=== PATIENT | female | born 1970 | race Caucasian/White ===

== ENCOUNTER 2016-12-29 13:14 | Inpatient (IN) | payer BC, OTHER ==
[2016-12-29] MEDS ORDERED: NALOXONE 0.4 MG/ML 10 ML VIAL IVP STA (13:59)
[2016-12-29] MEDS ORDERED: SODIUM CHLORIDE 0.9% 1,000 ML IV STA (13:59)
[2016-12-29 14:19] LABS: Appearance,Urine Cloudy (Clear); Bacteria,Urine Moderate /hpf; Bilirubin,Urine Negative (Negative); Glucose,Urine (UA) Negative (Negative); Ketones,Urine Negative (Negative); Leukocyte Esterase,Urine Negative (Negative); Nitrite,Urine Positive (Negative); Particle Count 64716; Protein,Urine Negative (Negative); RBC,Urine 1 /hpf (0-5); Specific Gravity,Urine 1.004 (1.001-1.035); Squamous Epithelial Cell,Urine <1 /hpf (0-4); UA Billing (MACRO vs. MICRO) MICRO; Urobilinogen,Urine <2.0 mg/dL (<2.0); WBC,Urine 1 /hpf (0-5)
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
[2016-12-29 14:50] LABS: Anisocytosis Slight; Basophils # (A) 0.1 k/uL (0-0.2); Basophils % (A) 1 %; CH 32.7; CHCM 32.9; Eosinophils % (A) 0 %; HCT 44.6 % (34.0-46.0); HDW 2.59; HGB 14.1 gm/dL (11.4-16.0); Luc # (Auto) 0.06; Luc % (Auto) 1; Lymphocytes % (A) 11 %; MCH 31.6 pg (25.0-35.0); MCHC 31.6 g/dL (31.0-37.0); MCV 100.1 fL (80.0-100.0); Macrocytosis Slight; Mean Platelet Volume 6.7; Monocytes # (A) 0.3 k/uL (0-1.0); Monocytes % (A) 3 %; Neutrophils # (A) 7.8 k/uL (1.3-7.7); Neutrophils % (A) 84 %; RBC 4.46 m/uL (3.80-5.40); RDW 16.9 % (11.5-15.5); WBC 9.3 k/uL (3.8-10.6)
[2016-12-29 15:00] LABS: INR 1.4 (<1.2); Partial Thromboplastin Time 28.1 sec (22.0-30.0); Prothrombin Time 13.3 sec (9.0-12.0)
[2016-12-29 15:02] LABS: Alcohol <10 mg/dL; Alkaline Phosphatase 81 U/L (38-126); Anion Gap 9 mmol/L; Blood Urea Nitrogen 7 mg/dL (7-17); Calcium 9.1 mg/dL (8.4-10.2); Carbon Dioxide 21 mmol/L (22-30); Chloride 108 mmol/L (98-107); Glucose 95 mg/dL (74-99); Non-African American GFR(MDRD) >60 (>60 ml/min/1.73 sqM); Potassium 3.9 mmol/L (3.5-5.1); Sodium 138 mmol/L (137-145); Total Bilirubin 0.5 mg/dL (0.2-1.3); Total Protein 7.3 g/dL (6.3-8.2)
[2016-12-29 15:08] LABS: Creatine Kinase 98 U/L (30-135)
[2016-12-29] MEDS ORDERED: LORazepam 2 MG/ML INJ IV STA (15:17)
[2016-12-29 15:19] LABS: AST 2327 U/L (14-36)
[2016-12-29 15:21] LABS: Creatine Kinase MB 1.1 ng/mL (0.0-2.4); Troponin I <0.012 ng/mL (0.000-0.034)
[2016-12-29 15:29] LABS: ALT 2149 U/L (9-52)
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
[2016-12-29 17:54] LABS: Glucose,Whole Blood 96 mg/dL (75-99)
[2016-12-29 18:07] LABS: Acetaminophen 35.6 ug/mL; Salicylate <1.0 mg/dL
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
[2016-12-29] MEDS ORDERED: NALOXONE 0.4 MG/ML 1 ML VIAL IV STA (18:55)
[2016-12-29] MEDS ORDERED: NALOXONE 0.4 MG/ML 1 ML VIAL IV PRN (20:07)
[2016-12-29] MEDS ORDERED: HALOPERIDOL LACTATE 5 MG/ML 1 ML VIAL IM PRN (21:42)
[2016-12-29] MEDS ORDERED: ONDANSETRON 4 MG/2 ML VIAL IVP PRN (21:44)
[2016-12-29] MEDS ORDERED: MELATONIN 5 MG TABLET PO PRN (21:45)
[2016-12-29] MEDS ORDERED: traMADol 50 MG TAB PO SCH (22:00)
[2016-12-29 22:12] VITALS: BMI 20.1
[2016-12-29] MEDS: SODIUM CHLORIDE 0.9% 1,000 ML IV SCH (22:13)
[2016-12-29] MEDS: NICOTINE 21MG/24HR PATCH TRANSDERM SCH (22:32)
[2016-12-29] MEDS ORDERED: HALOPERIDOL LACTATE 5 MG/ML 1 ML VIAL IVP PRN (23:57)
[2016-12-30] MEDS: traMADol 50 MG TAB PO PRN ×2 (03:55→09:26)
[2016-12-30 04:08] VITALS: TEMP 96.7
[2016-12-30] MEDS: SODIUM CHLORIDE 0.9% 1,000 ML IV SCH (05:59)
[2016-12-30 06:25] LABS: Anisocytosis Slight; Basophils % (A) 0 %; CH 32.5; CHCM 32.6; Eosinophils % (A) 0 %; HCT 39.5 % (34.0-46.0); HGB 12.7 gm/dL (11.4-16.0); Luc # (Auto) 0.07; Luc % (Auto) 1; Lymphocytes # (A) 0.7 k/uL (1.0-4.8); Lymphocytes % (A) 8 %; MCH 32.5 pg (25.0-35.0); MCHC 32.2 g/dL (31.0-37.0); MCV 100.7 fL (80.0-100.0); Macrocytosis Slight; Mean Platelet Volume 6.9; Monocytes # (A) 0.4 k/uL (0-1.0); Monocytes % (A) 4 %; Neutrophils # (A) 7.6 k/uL (1.3-7.7); Neutrophils % (A) 87 %; RBC 3.92 m/uL (3.80-5.40); RDW 17.1 % (11.5-15.5); WBC 8.8 k/uL (3.8-10.6); WBC (Perox) 9.12
[2016-12-30 06:36] LABS: Alkaline Phosphatase 74 U/L (38-126); Anion Gap 7 mmol/L; Blood Urea Nitrogen 6 mg/dL (7-17); Calcium 8.1 mg/dL (8.4-10.2); Carbon Dioxide 18 mmol/L (22-30); Chloride 116 mmol/L (98-107); Glucose 79 mg/dL (74-99); Magnesium 2.1 mg/dL (1.6-2.3); Non-African American GFR(MDRD) >60 (>60 ml/min/1.73 sqM); Potassium 3.8 mmol/L (3.5-5.1); Sodium 141 mmol/L (137-145); Total Bilirubin 0.6 mg/dL (0.2-1.3); Total Protein 5.7 g/dL (6.3-8.2)
[2016-12-30 07:18] LABS: ALT 5722 U/L (9-52); AST 5708 U/L (14-36)
[2016-12-30 08:32] VITALS: BP 105/56; PULSE 73; RESP 20
[2016-12-30] MEDS ORDERED: HEPARIN SODIUM,PORCINE 5,000 UNIT/ML 1 ML VIAL SQ SCH (09:00)
[2016-12-30] MEDS ORDERED: PANTOPRAZOLE 40 MG/10 ML VIAL IV SCH (09:00)
[2016-12-30] MEDS: NICOTINE 21MG/24HR PATCH TRANSDERM SCH ×3 (09:26→09:35)
--- NOTE | 2016-12-30 11:06 | P.HPIM ---
History of Present Illness Left AMA Past Medical History Past Medical History: Fibromyalgia, GERD/Reflux, Musculoskeletal Disorder History of Any Multi-Drug Resistant Organisms: None Reported Past Surgical History: Appendectomy, Section, Hernia Repair, Hysterectomy, Orthopedic Surgery Additional Past Surgical History / Comment(s): abdominal surgeries post Hysterectomy, rt. knee-rt. elbow, left wrist. Pain clinic injections Past Anesthesia/Blood Transfusion Reactions: No Reported Reaction Past Psychological History: Anxiety, Depression, PTSD Smoking Status: Former smoker Past Alcohol Use History: Occasional Past Drug Use History: None Reported - Past Family History Mother Family Medical History: Cancer Medications and Allergies Home Medications Medication Instructions Recorded Confirmed Type lamoTRIgine [LaMICtal] 150 mg PO BID 09/03/13 12/29/16 History LORazepam [Ativan] 0.5 mg PO TID PRN 09/07/13 12/29/16 History Omeprazole [PriLOSEC] 20 mg PO BID 09/07/13 12/29/16 History Topiramate [Topamax] 100 mg PO HS 09/07/13 12/29/16 History Propranolol LA [Inderal LA] 60 mg PO DAILY 11/09/13 12/29/16 History Amitriptyline HCl [Elavil] 25 mg PO HS #30 tab 02/17/14 12/29/16 Rx FLUoxetine HCL [PROzac] 80 mg PO HS 12/29/16 12/29/16 History Mirtazapine [Remeron] 15 mg PO HS 12/29/16 12/29/16 History Morphine Sulfate [Ms Contin] 30 mg PO TID 12/29/16 12/29/16 History oxyCODONE HCL/ACETAMINOPHEN 1 tab PO QID PRN 12/29/16 12/29/16 History [Percocet 10-325 mg] Allergies Allergy/AdvReac Type Severity Reaction Status Date / Time HAY FEVER Allergy Cough Uncoded 06/21/14 12:22 Physical Exam Vitals: Vital Signs Temp Pulse Pulse Resp BP BP Pulse Ox 12/30/16 08:22 73 20 105/56 97 12/30/16 04:00 96.7 F L 63 24 126/71 99 12/29/16 23:30 96.9 F L 53 L 20 97/54 98 12/29/16 21:30 96.6 F L 62 24 107/56 98 12/29/16 20:47 97.7 F 72 18 97/59 98 12/29/16 20:15 68 18 101/55 98 12/29/16 19:39 68 18 110/76 97 12/29/16 18:56 68 18 106/64 97 12/29/16 17:59 73 18 95/45 97 12/29/16 17:09 76 18 99/54 94 L 12/29/16 16:36 73 18 100/63 95 12/29/16 16:17 69 18 95/54 100 12/29/16 15:56 75 17 92/56 97 12/29/16 15:25 90/53 12/29/16 15:15 87 26 H 97 12/29/16 13:16 98.2 F 64 16 96/49 95 Intake and Output 12/29/16 12/30/16 12/30/16 22:59 06:59 14:59 Intake Total 375 1000 Balance 375 1000 Intake: Intake, IV Titration 375 1000 Amount Sodium Chloride 0.9% 1, 375 1000 000 ml @ 125 mls/hr IV . Q8H [facility] Rx#:[id number] Other: Voiding Method Toilet Toilet Weight 49.89 kg 64.5 kg Results CBC & Chem 7: 12/30/16 06:02 12/30/16 06:02 Labs: Abnormal Lab Results - Last 24 Hours (Table) 12/29/16 12/29/16 12/29/16 Range/Units 14:05 14:05 14:40 MCV (80.0-100.0) fL RDW (11.5-15.5) % Neutrophils # (1.3-7.7) k/uL Lymphocytes # (1.0-4.8) k/uL PT (9.0-12.0) sec INR (<1.2) Chloride 108 H (98-107) mmol/L Carbon Dioxide 21 L (22-30) mmol/L BUN (7-17) mg/dL Calcium (8.4-10.2) mg/dL AST 2327 H (14-36) U/L ALT 2149 H (9-52) U/L Total Protein (6.3-8.2) g/dL Albumin (3.5-5.0) g/dL Urine Appearance Cloudy H (Clear) Urine Nitrite Positive H (Negative) Urine Bacteria Moderate H (None) /hpf Urine Opiates Screen Detected H (NotDetected) Ur Oxycodone Screen Detected H (NotDetected) U Benzodiazepines Scrn Detected H (NotDetected) 12/29/16 12/29/16 12/30/16 Range/Units 14:40 14:40 06:02 MCV 100.1 H 100.7 H (80.0-100.0) fL RDW 16.9 H 17.1 H (11.5-15.5) % Neutrophils # 7.8 H (1.3-7.7) k/uL Lymphocytes # 0.7 L (1.0-4.8) k/uL PT 13.3 H (9.0-12.0) sec INR 1.4 H (<1.2) Chloride (98-107) mmol/L Carbon Dioxide (22-30) mmol/L BUN (7-17) mg/dL Calcium (8.4-10.2) mg/dL AST (14-36) U/L ALT (9-52) U/L Total Protein (6.3-8.2) g/dL Albumin (3.5-5.0) g/dL Urine Appearance (Clear) Urine Nitrite (Negative) Urine Bacteria (None) /hpf Urine Opiates Screen (NotDetected) Ur Oxycodone Screen (NotDetected) U Benzodiazepines Scrn (NotDetected) 12/30/16 Range/Units 06:02 MCV (80.0-100.0) fL RDW (11.5-15.5) % Neutrophils # (1.3-7.7) k/uL Lymphocytes # (1.0-4.8) k/uL PT (9.0-12.0) sec INR (<1.2) Chloride 116 H (98-107) mmol/L Carbon Dioxide 18 L (22-30) mmol/L BUN 6 L (7-17) mg/dL Calcium 8.1 L (8.4-10.2) mg/dL AST 5708 H (14-36) U/L ALT 5722 H (9-52) U/L Total Protein 5.7 L (6.3-8.2) g/dL Albumin 3.0 L (3.5-5.0) g/dL Urine Appearance (Clear) Urine Nitrite (Negative) Urine Bacteria (None) /hpf Urine Opiates Screen (NotDetected) Ur Oxycodone Screen (NotDetected) U Benzodiazepines Scrn (NotDetected) Thrombosis Risk Factor Assmnt - Choose All That Apply Any of the Below Risk Factors Present?: Yes Each Factor Represents 1 point: Age 41-60 years Other Risk Factors: No Thrombosis Risk Factor Assessment Total Risk Factor Score: 1 Thrombosis Risk Factor Assessment Level: Low Risk
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
== END 2016-12-30 11:09 | disposition left against medical advice (07) | DRG 81 ==
LOC: EC 13:14 → 6SEL 20:13
PROVIDERS: ADMIT Internal Medicine; ATTEND Internal Medicine
DX: R40.0 Somnolence (principal); F32.9 Major depressive disorder, single episode, unspecified; R41.0 Disorientation, unspecified; F13.10 Sedative, hypnotic or anxiolytic abuse, uncomplicated; F17.200 Nicotine dependence, unspecified, uncomplicated; F43.10 Post-traumatic stress disorder, unspecified; K21.9 Gastro-esophageal reflux disease without esophagitis; M79.7 Fibromyalgia; G89.29 Other chronic pain; F41.9 Anxiety disorder, unspecified; Z79.899 Other long term (current) drug therapy; V89.2XXA Person injured in unspecified motor-vehicle accident, traffic, initial encounter; Y92.410 Unspecified street and highway as the place of occurrence of the external cause
CPT/HCPCS: 36415; 70450; 71020; 72125; 72170; 76705; 80053; 80306; 80320; 81001; 82075; 82140; 82550; 82553; 83520; 83735; 84484; 85025; 85610; 85730; 93005; 96361; 96374; 96375; 96376; 99285

== ENCOUNTER 2020-02-01 17:40 | Inpatient (IN) | payer BC, OTHER ==
[2020-02-01 18:02] LABS: Glucose,Whole Blood 110 mg/dL (75-99)
[2020-02-01 18:11] LABS: Basophils # (A) 0.1 k/uL (0-0.2); Basophils % (A) 1 %; Eosinophils # (A) 0.1 k/uL (0-0.7); Eosinophils % (A) 2 %; HCT 36.7 % (34.0-46.0); HGB 11.7 gm/dL (11.4-16.0); Lymphocytes # (A) 2.1 k/uL (1.0-4.8); Lymphocytes % (A) 28 %; MCH 31.3 pg (25.0-35.0); MCHC 31.8 g/dL (31.0-37.0); MCV 98.4 fL (80.0-100.0); Mean Platelet Volume 6.9; Monocytes # (A) 0.3 k/uL (0-1.0); Monocytes % (A) 4 %; Neutrophils # (A) 4.9 k/uL (1.3-7.7); Neutrophils % (A) 64 %; Platelet Count 245 k/uL (150-450); RBC 3.73 m/uL (3.80-5.40); RDW 13.6 % (11.5-15.5); WBC 7.6 k/uL (3.8-10.6)
--- NOTE | 2020-02-01 18:12 | ED ---
Overdose HPI - General Chief Complaint: Overdose Stated Complaint: overdose Time Seen by Provider: 02/01/20 17:40 Source: EMS, RN notes reviewed, old records reviewed Mode of arrival: EMS Limitations: altered mental status - History of Present Illness Initial Comments: This is a 50-year-old female history of chronic pain who was brought in by EMS after being found unresponsive with a needle in her left antecubital space. She does have apparently access to medication use in that area medicine. Unknown when she injected. She was unresponsive somnolent with bradycardia and labored breathing. She was given 2 mg Narcan without any response by EMS personnel. She was transported here with O PA and nasal trumpet that. She did maintain oxygenation however she was still unresponsive. She did demonstrate a gag reflex per paramedics. Intubation was attempted but gag reflex indicated this at that time.per report there was a suicide note left. MD Complaint: intentional overdose - Related Data Home Medications Medication Instructions Recorded Confirmed lamoTRIgine [LaMICtal] 150 mg PO BID 09/03/13 12/29/16 LORazepam [Ativan] 0.5 mg PO TID PRN 09/07/13 12/29/16 Omeprazole [PriLOSEC] 20 mg PO BID 09/07/13 12/29/16 Topiramate [Topamax] 100 mg PO HS 09/07/13 12/29/16 Propranolol LA [Inderal LA] 60 mg PO DAILY 11/09/13 12/29/16 FLUoxetine HCL [PROzac] 80 mg PO HS 12/29/16 12/29/16 Mirtazapine [Remeron] 15 mg PO HS 12/29/16 12/29/16 Morphine Sulfate [Ms Contin] 30 mg PO TID 12/29/16 12/29/16 oxyCODONE HCL/ACETAMINOPHEN 1 tab PO QID PRN 12/29/16 12/29/16 [Percocet 10-325 mg] Previous Rx's Medication Instructions Recorded Amitriptyline HCl [Elavil] 25 mg PO HS #30 tab 02/17/14 Allergies Allergy/AdvReac Type Severity Reaction Status Date / Time HAY FEVER Allergy Cough Uncoded 02/01/20 18:00 Review of Systems ROS Statement: Those systems with pertinent positive or pertinent negative responses have been documented in the HPI. ROS Other: All systems not noted in ROS Statement are negative. Past Medical History Past Medical History: Fibromyalgia, GERD/Reflux, Musculoskeletal Disorder History of Any Multi-Drug Resistant Organisms: None Reported Past Surgical History: Appendectomy, Section, Hernia Repair, Hysterectomy, Orthopedic Surgery Additional Past Surgical History / Comment(s): abdominal surgeries post Hysterectomy, rt. knee-rt. elbow, left wrist. Pain clinic injections Past Anesthesia/Blood Transfusion Reactions: No Reported Reaction Past Psychological History: Anxiety, Depression, PTSD Smoking Status: Unknown if ever smoked Past Alcohol Use History: Occasional Past Drug Use History: None Reported - Past Family History Mother Family Medical History: Cancer General Exam - General Exam Comments Initial Comments: this is a well-developed well-nourished unresponsive female Limitations: altered mental status General appearance: in distress Head exam: Present: atraumatic, normocephalic, normal inspection Eye exam: Present: other (pupils are fixed at 2 mm unresponsive to light at this time) ENT exam: Present: normal exam, mucous membranes moist Neck exam: Present: normal inspection. Absent: tenderness, meningismus, lymphadenopathy Respiratory exam: Present: decreased breath sounds. Absent: respiratory distress, wheezes, rales, rhonchi, stridor Cardiovascular Exam: Present: normal rhythm, bradycardia, normal heart sounds. Absent: systolic murmur, diastolic murmur, rubs, gallop, clicks GI/Abdominal exam: Present: soft, normal bowel sounds. Absent: distended, tenderness, guarding, rebound, rigid Extremities exam: Present: full ROM, normal capillary refill, other (hematoma noted at the injection site in the left antecubital space. No pulsations at this time. Distal pulses are maintained). Absent: tenderness, pedal edema, joint swelling, calf tenderness Back exam: Present: normal inspection Neurological exam: Present: altered, CN II-XII intact Psychiatric exam: Present: suicidal ideation Skin exam: Present: warm, dry, intact, normal color. Absent: rash Course Vital Signs 02/01/20 02/01/20 02/01/20 17:44 17:48 18:19 Temperature 97.8 F 96.8 F L Pulse Rate 54 L 47 L Respiratory 10 L 10 L 15 Rate Blood Pressure 90/52 85/59 O2 Sat by Pulse 100 99 Oximetry 02/01/20 02/01/20 02/01/20 18:35 19:23 20:00 Temperature Pulse Rate 45 L 45 L 47 L Respiratory 14 14 Rate Blood Pressure 86/61 102/54 90/56 O2 Sat by Pulse 100 100 Oximetry 02/01/20 02/01/20 02/01/20 20:28 20:35 20:45 Temperature Pulse Rate 46 L 46 L 48 L Respiratory 12 14 14 Rate Blood Pressure 80/61 97/56 81/53 O2 Sat by Pulse 100 100 100 Oximetry - Reevaluation(s) Reevaluation #1: 02/01/20 19:41 I did reevaluate patient several occasions with no change in responsiveness. Blood pressure is in the low 90s systolic this apparently is her normal range per her was present. Procedures - Central Line Placement Right SC Consent Obtained: written consent, emergent situation Patient Placed on Monitor/Pulse Ox: Yes Prep: mask, gown, gloves, other Central Line Prep: Chlorhexidine scrub Local Anesthesia Used: Lidocaine 1% Amount of Anesthesia Used (mls): 3 Ultrasound Used for Placement: No Central Line Lumen Inserted: triple Bloods Obtained for Lab: No Central Line Position: good blood return, all ports aspirated, flushed, capped, sutured in place with 3-0 nylon Dressing Applied: Tegaderm Post Procedure X-Ray: tip of catheter in good position Patient Tolerated Procedure: well Complications: none, other (Catheter appears be in good position no evidence of pneumothorax.) - Intubation Paralytic: Succinylcholine Mg Given: 100 Laryngoscope: Ferguson Size: 3 ET Tube Size: 7.5 ET Tube Uncuffed: No (coughed) Tube Secured Location: lips Tube Placement Confirmation: visualized tube passing through cords, equal breath sounds bilaterally, confirmation by capnometry Patient Tolerated Procedure: well Intubation Complications: none Medical Decision Making - Lab Data Result diagrams: 02/01/20 18:02 02/01/20 18:02 Lab Results 02/01/20 02/01/20 02/01/20 Range/Units 18:01 18: 18:02 WBC 7.6 (3.8-10.6) k/uL RBC 3.73 L (3.80-5.40) m/uL Hgb 11.7 (11.4-16.0) gm/dL Hct 36.7 (34.0-46.0) % MCV 98.4 (80.0-100.0) fL MCH 31.3 (25.0-35.0) pg MCHC 31.8 (31.0-37.0) g/dL RDW 13.6 (11.5-15.5) % Plt Count 245 (150-450) k/uL Neutrophils % 64 % Lymphocytes % 28 % Monocytes % 4 % Eosinophils % 2 % Basophils % 1 % Neutrophils # 4.9 (1.3-7.7) k/uL Lymphocytes # 2.1 (1.0-4.8) k/uL Monocytes # 0.3 (0-1.0) k/uL Eosinophils # 0.1 (0-0.7) k/uL Basophils # 0.1 (0-0.2) k/uL APTT 24.8 (22.0-30.0) sec Sample Site ABG pH (7.35-7.45) ABG pCO2 (35-45) mmHg ABG pO2 (83-108) mmHg ABG HCO3 (21-25) mmol/L ABG Total CO2 (19-24) mmol/L ABG O2 Saturation (94-97) % ABG Base Excess mmol/L [place] Test FiO2 % Sodium (137-145) mmol/L Potassium (3.5-5.1) mmol/L Chloride (98-107) mmol/L Carbon Dioxide (22-30) mmol/L Anion Gap mmol/L BUN (7-17) mg/dL Creatinine (0.52-1.04) mg/dL Est GFR (CKD-EPI)AfAm (>60 ml/min/1.73 sqM) Est GFR (CKD-EPI)NonAf (>60 ml/min/1.73 sqM) Glucose (74-99) mg/dL POC Glucose (mg/dL) 110 H (75-99) mg/dL POC Glu Communications Designer ID Juany Grissom Osmolality ([phone]) mosm/kg Plasma Lactic Acid Naun (0.7-2.0) mmol/L Calcium (8.4-10.2) mg/dL Magnesium (1.6-2.3) mg/dL Total Bilirubin (0.2-1.3) mg/dL AST (14-36) U/L ALT (4-34) U/L Alkaline Phosphatase (38-126) U/L Ammonia (<30) umol/L Creatine Kinase (30-135) U/L Troponin I (0.000-0.034) ng/mL NT-Pro-B Natriuret Pep pg/mL Total Protein (6.3-8.2) g/dL Albumin (3.5-5.0) g/dL Amylase (30-110) U/L Lipase (23-300) U/L Urine Color Urine Appearance (Clear) Urine pH (5.0-8.0) Ur Specific [place] (1.001-1.035) Urine Protein (Negative) Urine Glucose (UA) (Negative) Urine Ketones (Negative) Urine Blood (Negative) Urine Nitrite (Negative) Urine Bilirubin (Negative) Urine Urobilinogen (<2.0) mg/dL Ur Leukocyte Esterase (Negative) Urine WBC (0-5) /hpf Ur Squamous Epith Cells (0-4) /hpf Urine Bacteria (None) /hpf Hyaline Casts (0-2) /lpf Urine Mucus (None) /hpf Salicylates mg/dL Urine Opiates Screen (NotDetected) Ur Oxycodone Screen (NotDetected) Urine Methadone Screen (NotDetected) Ur Propoxyphene Screen (NotDetected) Acetaminophen ug/mL Ur Barbiturates Screen (NotDetected) Phenytoin ug/mL U Tricyclic Antidepress (NotDetected) Ur Phencyclidine Scrn (NotDetected) Ur Amphetamines Screen (NotDetected) U Methamphetamines Scrn (NotDetected) U Benzodiazepines Scrn (NotDetected) Urine Cocaine Screen (NotDetected) U Marijuana (THC) Screen (NotDetected) Serum Alcohol mg/dL 02/01/20 02/01/20 02/01/20 Range/Units 18:02 18:02 18:02 WBC (3.8-10.6) k/uL RBC (3.80-5.40) m/uL Hgb (11.4-16.0) gm/dL Hct (34.0-46.0) % MCV (80.0-100.0) fL MCH (25.0-35.0) pg MCHC (31.0-37.0) g/dL RDW (11.5-15.5) % Plt Count (150-450) k/uL Neutrophils % % Lymphocytes % % Monocytes % % Eosinophils % % Basophils % % Neutrophils # (1.3-7.7) k/uL Lymphocytes # (1.0-4.8) k/uL Monocytes # (0-1.0) k/uL Eosinophils # (0-0.7) k/uL Basophils # (0-0.2) k/uL APTT (22.0-30.0) sec Sample Site ABG pH (7.35-7.45) ABG pCO2 (35-45) mmHg ABG pO2 (83-108) mmHg ABG HCO3 (21-25) mmol/L ABG Total CO2 (19-24) mmol/L ABG O2 Saturation (94-97) % ABG Base Excess mmol/L [place] Test FiO2 % Sodium 136 L (137-145) mmol/L Potassium 4.2 (3.5-5.1) mmol/L Chloride 111 H (98-107) mmol/L Carbon Dioxide 23 (22-30) mmol/L Anion Gap 2 mmol/L BUN 11 (7-17) mg/dL Creatinine 0.91 (0.52-1.04) mg/dL Est GFR (CKD-EPI)AfAm 85 (>60 ml/min/1.73 sqM) Est GFR (CKD-EPI)NonAf 74 (>60 ml/min/1.73 sqM) Glucose 113 H (74-99) mg/dL POC Glucose (mg/dL) (75-99) mg/dL POC Glu Communications Designer ID Osmolality [id number] ([phone]) mosm/kg Plasma Lactic Acid Naun 1.1 (0.7-2.0) mmol/L Calcium 8.1 L (8.4-10.2) mg/dL Magnesium 2.0 (1.6-2.3) mg/dL Total Bilirubin 0.4 (0.2-1.3) mg/dL AST 23 (14-36) U/L ALT 14 (4-34) U/L Alkaline Phosphatase 43 (38-126) U/L Ammonia <9 (<30) umol/L Creatine Kinase 98 (30-135) U/L Troponin I <0.012 (0.000-0.034) ng/mL NT-Pro-B Natriuret Pep pg/mL Total Protein 5.6 L (6.3-8.2) g/dL Albumin 3.1 L (3.5-5.0) g/dL Amylase <30 L (30-110) U/L Lipase 67 (23-300) U/L Urine Color Urine Appearance (Clear) Urine pH (5.0-8.0) Ur Specific [place] (1.001-1.035) Urine Protein (Negative) Urine Glucose (UA) (Negative) Urine Ketones (Negative) Urine Blood (Negative) Urine Nitrite (Negative) Urine Bilirubin (Negative) Urine Urobilinogen (<2.0) mg/dL Ur Leukocyte Esterase (Negative) Urine WBC (0-5) /hpf Ur Squamous Epith Cells (0-4) /hpf Urine Bacteria (None) /hpf Hyaline Casts (0-2) /lpf Urine Mucus (None) /hpf Salicylates <1.0 mg/dL Urine Opiates Screen (NotDetected) Ur Oxycodone Screen (NotDetected) Urine Methadone Screen (NotDetected) Ur Propoxyphene Screen (NotDetected) Acetaminophen <10.0 ug/mL Ur Barbiturates Screen (NotDetected) Phenytoin <3.0 ug/mL U Tricyclic Antidepress (NotDetected) Ur Phencyclidine Scrn (NotDetected) Ur Amphetamines Screen (NotDetected) U Methamphetamines Scrn (NotDetected) U Benzodiazepines Scrn (NotDetected) Urine Cocaine Screen (NotDetected) U Marijuana (THC) Screen (NotDetected) Serum Alcohol <10 mg/dL 02/01/20 02/01/20 02/01/20 Range/Units 18:02 18:03 18:47 WBC (3.8-10.6) k/uL RBC (3.80-5.40) m/uL Hgb (11.4-16.0) gm/dL Hct (34.0-46.0) % MCV (80.0-100.0) fL MCH (25.0-35.0) pg MCHC (31.0-37.0) g/dL RDW (11.5-15.5) % Plt Count (150-450) k/uL Neutrophils % % Lymphocytes % % Monocytes % % Eosinophils % % Basophils % % Neutrophils # (1.3-7.7) k/uL Lymphocytes # (1.0-4.8) k/uL Monocytes # (0-1.0) k/uL Eosinophils # (0-0.7) k/uL Basophils # (0-0.2) k/uL APTT (22.0-30.0) sec Sample Site l rad ABG pH 7.28 L (7.35-7.45) ABG pCO2 42 (35-45) mmHg ABG pO2 >400 H (83-108) mmHg ABG HCO3 20 L (21-25) mmol/L ABG Total CO2 21 (19-24) mmol/L ABG O2 Saturation 100.0 H (94-97) % ABG Base Excess -6.9 mmol/L [place] Test Yes FiO2 100 % Sodium (137-145) mmol/L Potassium (3.5-5.1) mmol/L Chloride (98-107) mmol/L Carbon Dioxide (22-30) mmol/L Anion Gap mmol/L BUN (7-17) mg/dL Creatinine (0.52-1.04) mg/dL Est GFR (CKD-EPI)AfAm (>60 ml/min/1.73 sqM) Est GFR (CKD-EPI)NonAf (>60 ml/min/1.73 sqM) Glucose (74-99) mg/dL POC Glucose (mg/dL) (75-99) mg/dL POC Glu Communications Designer ID Osmolality ([phone]) mosm/kg Plasma Lactic Acid Naun (0.7-2.0) mmol/L Calcium (8.4-10.2) mg/dL Magnesium (1.6-2.3) mg/dL Total Bilirubin (0.2-1.3) mg/dL AST (14-36) U/L ALT (4-34) U/L Alkaline Phosphatase (38-126) U/L Ammonia (<30) umol/L Creatine Kinase (30-135) U/L Troponin I (0.000-0.034) ng/mL NT-Pro-B Natriuret Pep 117 pg/mL Total Protein (6.3-8.2) g/dL Albumin (3.5-5.0) g/dL Amylase (30-110) U/L Lipase (23-300) U/L Urine Color Yellow Urine Appearance Cloudy H (Clear) Urine pH 5.5 (5.0-8.0) Ur Specific [place] 1.011 (1.001-1.035) Urine Protein Negative (Negative) Urine Glucose (UA) Negative (Negative) Urine Ketones Negative (Negative) Urine Blood Negative (Negative) Urine Nitrite Positive H (Negative) Urine Bilirubin Negative (Negative) Urine Urobilinogen <2.0 (<2.0) mg/dL Ur Leukocyte Esterase Negative (Negative) Urine WBC 1 (0-5) /hpf Ur Squamous Epith Cells <1 (0-4) /hpf Urine Bacteria Rare H (None) /hpf Hyaline Casts 7 H (0-2) /lpf Urine Mucus Rare H (None) /hpf Salicylates mg/dL Urine Opiates Screen Detected H (NotDetected) Ur Oxycodone Screen Not Detected (NotDetected) Urine Methadone Screen Not Detected (NotDetected) Ur Propoxyphene Screen Not Detected (NotDetected) Acetaminophen ug/mL Ur Barbiturates Screen Detected H (NotDetected) Phenytoin ug/mL U Tricyclic Antidepress Not Detected (NotDetected) Ur Phencyclidine Scrn Not Detected (NotDetected) Ur Amphetamines Screen Not Detected (NotDetected) U Methamphetamines Scrn Not Detected (NotDetected) U Benzodiazepines Scrn Detected H (NotDetected) Urine Cocaine Screen Not Detected (NotDetected) U Marijuana (THC) Screen Detected H (NotDetected) Serum Alcohol mg/dL - EKG Data -: EKG Interpreted by Ms EKG shows normal: sinus rhythm (sinus bradycardia rate of 51. Interval 170 QRS duration 84 QT since QTC 526/44 prolonged QT noted) - Radiology Data Radiology results: report reviewed (imaging reviewed endotracheal tube and G- tube appear to be in good position no infiltrates seen. CAT scan of brain appe ars be negative for acute findings.), image reviewed Critical Care Time Critical Care Time: Yes Total Critical Care Time: 45 Critical Care Time: 35 minutes of critical care time which did not include procedures did did include initial presentation history physical labs x-rays discussion with the patient's discussed with paramedics upon arrival multiple reevaluation the patient response to therapy review of all the materials including imaging. Discussion with the admitting physician service Dr. Veras, discussion with Dr. Henry. Disposition Clinical Impression: Drug overdose, Suicide attempt, Hypotensive episode, Cerebral anoxia, Respiratory failure Disposition: ADMITTED IP TO THIS HOSP Condition: Critical Referrals: Ulises Roberts DO [Primary Care Provider] - 1-2 days
[2020-02-01] MEDS ORDERED: NALOXONE 0.4 MG/ML 1 ML VIAL IVP STA (18:13)
--- NOTE | 2020-02-01 18:13 | XR ---
EXAMINATION TYPE: XR chest 1V confirm line [facility] DATE OF EXAM: 02/01/2020 COMPARISON: Prior chest x-ray 12/29/2016 HISTORY: Intubation TECHNIQUE: Single frontal view of the chest is obtained. FINDINGS: Endotracheal tube, orogastric tube have been placed in the interval and are overlying appro priate positions. There is no focal air space opacity, pleural effusion, or pneumothorax seen. The c ardiac silhouette size is within normal limits. The osseous structures are intact. IMPRESSION: No acute process. No evident complication status post tube placement
[2020-02-01] MEDS ORDERED: SUCCINYLCHOLINE CHLORIDE VIAL 200 MG/10 ML VIAL IV STA (18:14)
[2020-02-01 18:17] LABS: Lactic Acid, Venous 1.1 mmol/L (0.7-2.0)
[2020-02-01 18:21] LABS: ALT 14 U/L (4-34); AST 23 U/L (14-36); Acetaminophen <10.0 ug/mL; African American GFR (CKD) 85 (>60 ml/min/1.73 sqM); Albumin 3.1 g/dL (3.5-5.0); Alcohol <10 mg/dL; Alkaline Phosphatase 43 U/L (38-126); Amylase <30 U/L (30-110); Anion Gap 2 mmol/L; Blood Urea Nitrogen 11 mg/dL (7-17); Calcium 8.1 mg/dL (8.4-10.2); Carbon Dioxide 23 mmol/L (22-30); Chloride 111 mmol/L (98-107); Creatine Kinase 98 U/L (30-135); Glucose 113 mg/dL (74-99); Lipase 67 U/L (23-300); Non-African American GFR(CKD) 74 (>60 ml/min/1.73 sqM); Phenytoin (Dilantin) <3.0 ug/mL; Potassium 4.2 mmol/L (3.5-5.1); Salicylate <1.0 mg/dL; Sodium 136 mmol/L (137-145); Total Bilirubin 0.4 mg/dL (0.2-1.3); Total Protein 5.6 g/dL (6.3-8.2)
[2020-02-01] MEDS ORDERED: SODIUM CHLORIDE 0.9% 1,000 ML IV STA (18:23)
[2020-02-01 18:36] LABS: Appearance,Urine Cloudy (Clear); Bacteria,Urine Rare /hpf; Bilirubin,Urine Negative (Negative); Blood,Urine Negative (Negative); Color,Urine Yellow; Glucose,Urine (UA) Negative (Negative); Hyaline Casts,Urine 7 /lpf (0-2); Ketones,Urine Negative (Negative); Leukocyte Esterase,Urine Negative (Negative); Mucus,Urine Rare /hpf; Nitrite,Urine Positive (Negative); PH, Urine 5.5 (5.0-8.0); Protein,Urine Negative (Negative); Specific Gravity,Urine 1.011 (1.001-1.035); Squamous Epithelial Cell,Urine <1 /hpf (0-4); Urobilinogen,Urine <2.0 mg/dL (<2.0); WBC,Urine 1 /hpf (0-5)
[2020-02-01 18:44] LABS: Amphetamine Screen,Urine Not Detected (NotDetected); Barbiturate Screen,Urine Detected (NotDetected); Benzodiazepines Screen,Urine Detected (NotDetected); Cocaine Screen,Urine Not Detected (NotDetected); Methadone Screen, Urine Not Detected (NotDetected); Opiate Screen,Urine Detected (NotDetected); Oxycodone Screen, Urine Not Detected (NotDetected); Phencyclidine Screen,Urine Not Detected (NotDetected); Tricyclic Antidepressant,Urine Not Detected (NotDetected); Urn Cannabinoid Scrn Detected (NotDetected)
[2020-02-01 18:52] LABS: ABG Base Excess -6.9 mmol/L; ABG HCO3 20 mmol/L (21-25); ABG PCO2 42 mmHg (35-45); ABG PH 7.28 (7.35-7.45); ABG PO2 >400 mmHg (83-108); ABG TCO2 21 mmol/L (19-24); Allen Test Performed? Yes
--- NOTE | 2020-02-01 19:41 | CT ---
EXAMINATION TYPE: CT brain wo con DATE OF EXAM: 02/01/2020 COMPARISON: CT 12/29/2016 HISTORY: Altered mental status. CT DLP: 1099.4 mGycm Automated exposure control for dose reduction was used. Helical imaging through the brain FINDINGS: No significant interval change within the brain. NG tube is noted incidentally. Some inflammatory soumya nge present within the ethmoid air cells. Calvarium is intact. Brain density is normal, there is no h emorrhage or hydrocephalus. There is mild cortical atrophy. IMPRESSION: STABLE BRAIN CT, NO ACUTE BRAIN ABNORMALITY.
[2020-02-01] MEDS ORDERED: NALOXONE 0.4 MG/ML 1 ML VIAL IV PRN (20:45)
--- NOTE | 2020-02-01 21:08 | XR ---
EXAMINATION TYPE: XR chest 1V confirm line [facility] DATE OF EXAM: 02/01/2020 COMPARISON: Prior chest x-ray 02/01/2020 HISTORY: Status post central venous catheter placement TECHNIQUE: Single frontal view of the chest is obtained. FINDINGS: There is been interval placement of a right subclavian central venous catheter, distal tip overlying the cavoatrial junction. No evident pneumothorax or pleural effusion. IMPRESSION: No evident complication status post central venous catheter placement.
[2020-02-01] MEDS: SODIUM CHLORIDE 0.9% 1,000 ML IV SCH (21:38)
[2020-02-01 22:04] LABS: Glucose,Whole Blood 120 mg/dL (75-99)
[2020-02-01] MEDS ORDERED: SODIUM CHLORIDE 0.9% 2,000 ML IV ONE (22:47)
[2020-02-02 01:57] LABS: ABG Base Excess -8.2 mmol/L; ABG HCO3 18 mmol/L (21-25); ABG Oxygen Saturation 99.2 % (94-97); ABG PCO2 38 mmHg (35-45); ABG PH 7.29 (7.35-7.45); ABG PO2 113 mmHg (83-108); ABG TCO2 20 mmol/L (19-24); Allen Test Performed? Yes
[2020-02-02] MEDS: NOREPINEPHRINE 32 MG in SODIUM CHLORIDE 0.9% 218 ML IV SCH (03:40)
[2020-02-02] MEDS ORDERED: FUROSEMIDE 10 MG/ML 10 ML VIAL IV STA (03:41)
[2020-02-02] MEDS ORDERED: SODIUM BICARB 8.4% 50 ML SYR (1 MEQ/ML) IV STA (03:41)
[2020-02-02] MEDS: SODIUM CHLORIDE 0.9% 1,000 ML IV SCH ×3 (05:00→20:09)
[2020-02-02 05:03] LABS: ALT 15 U/L (4-34); AST 30 U/L (14-36); African American GFR (CKD) >90 (>60 ml/min/1.73 sqM); Albumin 3.2 g/dL (3.5-5.0); Alkaline Phosphatase 52 U/L (38-126); Anion Gap 5 mmol/L; Blood Urea Nitrogen 10 mg/dL (7-17); Calcium 7.2 mg/dL (8.4-10.2); Carbon Dioxide 20 mmol/L (22-30); Chloride 116 mmol/L (98-107); Glucose 151 mg/dL (74-99); Magnesium 1.7 mg/dL (1.6-2.3); Non-African American GFR(CKD) >90 (>60 ml/min/1.73 sqM); Potassium 4.1 mmol/L (3.5-5.1); Sodium 141 mmol/L (137-145); Total Bilirubin 0.4 mg/dL (0.2-1.3); Total Protein 5.7 g/dL (6.3-8.2)
[2020-02-02 05:06] LABS: Basophils # (A) 0.1 k/uL (0-0.2); Basophils % (A) 1 %; Eosinophils # (A) 0.1 k/uL (0-0.7); Eosinophils % (A) 1 %; HGB 12.2 gm/dL (11.4-16.0); Hypochromasia Slight; Lymphocytes # (A) 1.9 k/uL (1.0-4.8); Lymphocytes % (A) 17 %; MCH 30.6 pg (25.0-35.0); MCHC 30.6 g/dL (31.0-37.0); MCV 99.9 fL (80.0-100.0); Macrocytosis Slight; Mean Platelet Volume 7.2; Monocytes # (A) 0.5 k/uL (0-1.0); Monocytes % (A) 5 %; Neutrophils # (A) 8.3 k/uL (1.3-7.7); Neutrophils % (A) 76 %; Platelet Count 327 k/uL (150-450); RBC 4.01 m/uL (3.80-5.40); RDW 14.3 % (11.5-15.5)
[2020-02-02] MEDS: MAGNESIUM SULFATE-D5W PMX 1 GM in DEXTROSE/WATER 1 100ML.BAG IVPB SCH ×2 (06:26→09:17)
[2020-02-02 09:00] LABS: ABG Base Excess -3.8 mmol/L; ABG HCO3 22 mmol/L (21-25); ABG Oxygen Saturation 99.9 % (94-97); ABG PCO2 42 mmHg (35-45); ABG PH 7.33 (7.35-7.45); ABG PO2 151 mmHg (83-108); ABG TCO2 23 mmol/L (19-24)
[2020-02-02 09:04] LABS: Allen Test Performed? no
[2020-02-02] MEDS: HEPARIN SODIUM,PORCINE 5,000 UNIT/ML 1 ML VIAL SQ SCH ×3 (09:17→23:38)
[2020-02-02] MEDS: PANTOPRAZOLE 40 MG/10 ML VIAL IV SCH (09:17)
--- NOTE | 2020-02-02 09:24 | P.CNNES ---
History of Present Illness Consult date: 02/02/20 Requesting physician: Boy Michelle Reason for Consult: cervical anoxia from drug overdose History of Present Illness: This is a 50-year-old woman with medical history of chronic pain, fibromyalgia that presented to the emergency department on 02/01/2020 via EMS after being found unresponsive with a needle in her left antecubital space. Unable to obtain the history from the patient as a result the history is obtained from medical record. Unknown with the patient injected. Patient was unresponsive, somnolent with bradycardia and labored breathing. She was given 2 mg of Narcan without response by EMS. The EMS felt like the patient had the intact gag reflex. As a result she was intubated. Patient left suicidal note behind. Neurology was consulted for cerebral anoxia (ED order was cervical which they meant to say cerebral). Per ICU team they were notified by that patient suicided on euthanize medication used for pets. Currently the patient is intubated on ventilator, non-responsive. Workup in the hospital consisted of: Initial vital signs as blood pressure of 90/52, heart rate of 54, respiratory of 10, temperature of 97.8 Fahrenheit axillary and pulse ox of 100% on mechanical ventilation. CT of the head was done and was reported as stable brain CT, no acute brain abnormality. Personally reviewed the CT of the head and I agree with the radiology report. EKG is reported as sinus bradycardia, ventricle rate of 51. Prolonged QT. The QT over QTC is 526/484 ms. It's abnormal EKG. Urine toxicology was positive for opiates, barbiturates, benzos, marijuana. The acetaminophen level was less than 10, phenytoin level was less than 3, serum alcohol was less than 10 and Salicylates are less than 1. Review of Systems Review of system is limited because of patient condition so the prone positive and negative as per HPI. Past Medical History Past Medical History: Fibromyalgia, GERD/Reflux, Musculoskeletal Disorder History of Any Multi-Drug Resistant Organisms: None Reported Past Surgical History: Appendectomy, Section, Hernia Repair, Hysterectomy, Orthopedic Surgery Additional Past Surgical History / Comment(s): abdominal surgeries post Hysterectomy, rt. knee-rt. elbow, left wrist. Pain clinic injections Past Anesthesia/Blood Transfusion Reactions: No Reported Reaction Past Psychological History: Anxiety, Depression, PTSD Smoking Status: Current every day smoker Past Alcohol Use History: Occasional Past Drug Use History: None Reported - Past Family History Mother Family Medical History: Cancer Medications and Allergies Home Medications Medication Instructions Recorded Confirmed Type lamoTRIgine [LaMICtal] 150 mg PO DIRECTED 09/03/13 02/01/20 History Topiramate [Topamax] 100 mg PO HS 09/07/13 02/01/20 History Propranolol LA [Inderal LA] 60 mg PO DAILY 11/09/13 02/01/20 History FLUoxetine HCL [PROzac] 80 mg PO HS 12/29/16 02/01/20 History ALPRAZolam [ALPRAZolam XR] 1 mg PO QAM 02/01/20 02/01/20 History ALPRAZolam [Xanax] 0.5 mg PO BID PRN 02/01/20 02/01/20 History Radha (Unknown Strength) 1 tab PO DAILY PRN 02/01/20 02/01/20 History Dicyclomine HCl 10 mg PO BID PRN 02/01/20 02/01/20 History traMADol HCL 50 mg PO Q6H PRN 02/01/20 02/01/20 History Allergies Allergy/AdvReac Type Severity Reaction Status Date / Time HAY FEVER Allergy Cough Uncoded 02/01/20 22:19 Physical Examination - Vital Signs Vital Signs: Vital Signs Temp Pulse Resp BP Pulse Ox 02/02/20 07:00 67 18 103/64 98 02/02/20 06:30 66 17 92/59 99 02/02/20 06:00 66 15 90/62 98 02/02/20 05:30 65 19 84/55 98 02/02/20 05:00 61 14 88/47 98 02/02/20 04:30 58 L 14 97/60 98 02/02/20 04:00 94.0 F L 57 L 14 112/79 98 02/02/20 03:30 52 L 14 86/60 99 02/02/20 03:00 51 L 14 122/89 98 02/02/20 02:30 65 14 81/52 99 02/02/20 02:00 45 L 14 85/54 98 02/02/20 01:30 43 L 14 89/58 99 02/02/20 01:00 41 L 14 90/58 99 02/02/20 00:40 41 L 14 84/55 99 02/02/20 00:30 41 L 15 89/51 02/02/20 00:00 93.0 F L 42 L 14 82/46 99 02/01/20 23:30 42 L 14 77/44 99 02/01/20 23:00 44 L 14 73/47 99 02/01/20 22:30 46 L 14 81/54 99 02/01/20 22:10 46 L 14 84/56 100 02/01/20 22:00 45 L 18 98/73 100 02/01/20 21:33 48 L 16 78/49 100 02/01/20 21:15 48 L 14 78/52 100 02/01/20 21:00 48 L 14 64/56 100 02/01/20 20:45 48 L 14 81/53 100 02/01/20 20:35 46 L 14 97/56 100 02/01/20 20:28 46 L 12 80/61 100 02/01/20 20:00 47 L 14 90/56 100 02/01/20 19:23 45 L 14 102/54 100 02/01/20 18:35 45 L 86/61 02/01/20 18:19 96.8 F L 47 L 15 85/59 99 02/01/20 17:48 97.8 F 54 L 10 L 90/52 100 02/01/20 17:44 10 L Intake and Output 02/01/20 02/02/20 02/02/20 22:59 06:59 14:59 Intake Total 130 3040 130 Output Total 100 800 400 Balance 30 2240 -270 Intake: Intake, IV Titration 130 3040 130 Amount Sodium Chloride 0.9% 1, 130 1040 130 000 ml @ 130 mls/hr IV . Q7H42M [facility] Rx#:[id number] Sodium Chloride 0.9% 2, 2000 000 ml @ 999 mls/hr IV . Q2H1M [facility] Rx#:[id number] Output: Urine 100 800 400 Uretheral (Ward) 100 Other: Voiding Method Indwelling Catheter Weight 68.039 kg GENERAL: The patient is lying in bed and does not seem in acute distress. CHEST: The heart rate is regular rate rhythm. No murmurs to auscultation. . LUNG: Intubated and on ventilator. Clear to auscultation bilaterally no wheezing noted throughout. Not labored breathing. ABDOMEN/GI: Bowel sounds present in all 4 quadrants. No tenderness to palpation throughout. NEUROLOGICAL: Limited because of patient condition. Higher mental function: Comatose with GCS 3. The patient is not opening eyes and not following commands. Cranial nerves: Eyes are closed and had to manually open them. Primary gaze are middle bilaterally. The pupils are round, right is 5-6mm and left is 3-4 mm and bilateral are reactive to light. +ve cornea reflex. No facial weakness noted bilaterally. Breathing over the vent. No gag or cough reflex. Motor: Gait is defered. The strength is unable to assess because of condition. No spontaneous movement. Normal bulk. Normal tone. Cerebellum: Unable to assess. Sensation: Unable to assess but to painful stimuli does not grimace face. Reflexes (right/left): 1+ throughout. Plantars are mute bilaterally. Results Sodium is 136. The initial he'll see glucose is 110. Calcium is 8.1. Plasma lactic acid vein is 1.1. AST is 23, ALTs 14, ammonia is less than 9. PHOSPHATASE IS 43. BLOOD GAS THE PH IS 7.28, PCO2 WAS 42, PO2 IS MORE THAN 400, BICARBONATE IS 20, OXYGEN SATURATION IS 100. Urinalysis appears cloudy, urine nitrates is positive, leukocyte esterase is negative, urine bacteria is rare. - Laboratory Findings CBC and BMP: 02/02/20 04:34 02/02/20 04:34 Abnormal Lab Findings: Abnormal Labs 02/01/20 02/01/20 02/01/20 18:01 18:02 18:02 WBC RBC 3.73 L MCHC Neutrophils # ABG pH ABG pO2 ABG HCO3 ABG O2 Saturation Sodium 136 L Chloride 111 H Carbon Dioxide Glucose 113 H POC Glucose (mg/dL) 110 H Calcium 8.1 L Total Protein 5.6 L Albumin 3.1 L Amylase <30 L Urine Appearance Urine Nitrite Urine Bacteria Hyaline Casts Urine Mucus Urine Opiates Screen Ur Barbiturates Screen U Benzodiazepines Scrn U Marijuana (THC) Screen 02/01/20 02/01/20 02/01/20 18:03 18:47 22:02 WBC RBC MCHC Neutrophils # ABG pH 7.28 L ABG pO2 >400 H ABG HCO3 20 L ABG O2 Saturation 100.0 H Sodium Chloride Carbon Dioxide Glucose POC Glucose (mg/dL) 120 H Calcium Total Protein Albumin Amylase Urine Appearance Cloudy H Urine Nitrite Positive H Urine Bacteria Rare H Hyaline Casts 7 H Urine Mucus Rare H Urine Opiates Screen Detected H Ur Barbiturates Screen Detected H U Benzodiazepines Scrn Detected H U Marijuana (THC) Screen Detected H 02/02/20 02/02/20 02/02/20 01:49 04:34 04:34 WBC 11.0 H RBC MCHC 30.6 L Neutrophils # 8.3 H ABG pH 7.29 L ABG pO2 113 H ABG HCO3 18 L ABG O2 Saturation 99.2 H Sodium Chloride 116 H Carbon Dioxide 20 L Glucose 151 H POC Glucose (mg/dL) Calcium 7.2 L Total Protein 5.7 L Albumin 3.2 L Amylase Urine Appearance Urine Nitrite Urine Bacteria Hyaline Casts Urine Mucus Urine Opiates Screen Ur Barbiturates Screen U Benzodiazepines Scrn U Marijuana (THC) Screen Assessment and Plan Assessment: This is a 50-year-old woman who presented that to the emergency department on 02/01/2020 after being found unresponsive with a suicidal notes. 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 Plan: The patient has suffered a degree of anonix brain injury but cannot say to exactly the degree from suicidal attempt. She has some brainstem reflex only. I ordered EEG to rule out any nonconvulsive seizure as a result hypoxia. Blood cultures are pending. Ordered 2-D echo to rule out any vegetation or any cardiac valvular dysfunction as a result of her suicidal attempt. I started the patient on thiamine 100 mg daily IV. Toxicology team are consulted per ICU team. I also recommend consulting psychiatry once the patient is more awake. The plan was discussed with the ICU team. Thank You for the consultation. Oscar Montes M.D. Neuro-hospitalist Time with Patient: Greater than 30
--- NOTE | 2020-02-02 11:43 | ECHOF ---
Referral Reason:drug use. Rule out vegatation MEASUREMENTS -------- HEIGHT: 160.0 cm WEIGHT: 68.0 kg BP: RVIDd: 1.9 cm (< 3.3) IVSd: 0.8 cm (0.6 - 1.1) LVIDd: 4.8 cm (3.9 - 5.3) LVPWd: 1.0 cm (0.6 - 1.1) IVSs: 1.0 cm LVIDs: 3.6 cm LVPWs: 1.4 cm Ao Diam: 2.7 cm (2.0 - 3.7) MV EXCURSION: 16.920 mm (> 18.000) MV EF SLOPE: 99 mm/s (70 - 150) EPSS: 1.5 cm MV E Humble: 0.97 m/s MV DecT: 153 ms MV A Humble: 0.85 m/s MV E/A Ratio: 1.14 FINDINGS -------- Sinus rhythm. This was a technically adequate study. The left ventricular size is normal. Left ventricular wall thickness is normal. There is moderate global hypokinesis of LV . Overall left ventricular systolic function is moderately impaired with, an EF between 35 - 40 %. The right ventricle is normal in size. The left atrial size is normal. The right atrial size is normal. The aortic valve was not well visualized. Mild mitral regurgitation is present. Mild tricuspid regurgitation present. Right ventricular systolic pressure is normal at < 35 mmHg. There is no pulmonic regurgitation present. The aortic root size is normal. There is no pericardial effusion. CONCLUSIONS -------- 1. The left ventricular size is normal. 2. Left ventricular wall thickness is normal. 3. There is moderate global hypokinesis of LV . 4. Overall left ventricular systolic function is moderately impaired with, an EF between 35 - 40 %. 5. The right ventricle is normal in size. 6. The left atrial size is normal. 7. The right atrial size is normal. 8. The aortic valve was not well visualized. 9. Mild mitral regurgitation is present. 10. Mild tricuspid regurgitation present. 11. There is no pulmonic regurgitation present. 12. The aortic root size is normal. 13. There is no pericardial effusion. DATABASE MARKETING ANALYST: Erika Ang RDCS
[2020-02-02 12:15] LABS: Glucose,Whole Blood 122 mg/dL (75-99)
[2020-02-02] MEDS: THIAMINE 100 MG in SODIUM CHLORIDE 0.9% 50 ML IVPB SCH (13:26)
--- NOTE | 2020-02-02 15:24 | P.CNPUL ---
History of Present Illness Consult date: 02/02/20 Requesting physician: Ulises Roberts Reason for consult: other (Acute hypoxic respiratory failure secondary to overdose) Chief complaint: Intentional overdose History of present illness: This is a 50-year-old female with history of fibromyalgia, patient was found unresponsive by her with a needle in her antecubital space. Supposedly the patient had a suicidal note her and she may have used some unknown medications, the believe it's possibly some medication used to euthanize dogs. Patient was brought into the ER by EMS, and she was unresponsive upon presentation, bradycardic and she had labored breathing. Received 2 mg of Narcan, and there was no response. Patient was admitted to the ICU on mechanical ventilation, and I was asked to see her on consultation. Apparently poison control was notified about her presentation, and mostly recommended supportive care measures only. Her drug screen came back positive for opiates, benzodiazepines, and marijuana. Rest of the drug screen was basically unremarkable. Patient is not in the ICU, and I saw on consultation, she is on mechanical ventilation, and her ventilator settings are assist control rate of 14 tidal volume is 400 FiO2 50% PEEP of 5. Her ABG showed a pO2 of 113 pCO2 of 38 pH of 7.9. She is on IV fluid in the form of 0.9 normal saline at 1 40 mL per hour and she is also on norepinephrine at 0.05 mcg/kg/m. Chest x-ray is basically unremarkable. CBC is relatively normal. Repeat ABG after ventilator adjustments made showed a pO2 of 151 pCO2 of 42 pH of 7.33. Patient remained on 50% FiO2. Electrolytes and renal profile are normal. Review of Systems ROS unobtainable: due to endotracheal tube Past Medical History Past Medical History: Fibromyalgia, GERD/Reflux, Musculoskeletal Disorder History of Any Multi-Drug Resistant Organisms: None Reported Past Surgical History: Appendectomy, Section, Hernia Repair, Hysterectomy, Orthopedic Surgery Additional Past Surgical History / Comment(s): abdominal surgeries post Hysterectomy, rt. knee-rt. elbow, left wrist. Pain clinic injections Past Anesthesia/Blood Transfusion Reactions: No Reported Reaction Past Psychological History: Anxiety, Depression, PTSD Smoking Status: Current every day smoker Past Alcohol Use History: Occasional Past Drug Use History: None Reported - Past Family History Mother Family Medical History: Cancer Medications and Allergies Home Medications Medication Instructions Recorded Confirmed Type lamoTRIgine [LaMICtal] 150 mg PO DIRECTED 09/03/13 02/01/20 History Topiramate [Topamax] 100 mg PO HS 09/07/13 02/01/20 History Propranolol LA [Inderal LA] 60 mg PO DAILY 11/09/13 02/01/20 History FLUoxetine HCL [PROzac] 80 mg PO HS 12/29/16 02/01/20 History ALPRAZolam [ALPRAZolam XR] 1 mg PO QAM 02/01/20 02/01/20 History ALPRAZolam [Xanax] 0.5 mg PO BID PRN 02/01/20 02/01/20 History Radha (Unknown Strength) 1 tab PO DAILY PRN 02/01/20 02/01/20 History Dicyclomine HCl 10 mg PO BID PRN 02/01/20 02/01/20 History traMADol HCL 50 mg PO Q6H PRN 02/01/20 02/01/20 History Allergies Allergy/AdvReac Type Severity Reaction Status Date / Time HAY FEVER Allergy Cough Uncoded 02/01/20 22:19 Physical Exam Vitals: Vital Signs Temp Pulse Resp BP Pulse Ox 02/02/20 14:15 68 17 105/79 97 02/02/20 14:00 68 16 113/70 97 02/02/20 13:45 69 16 110/66 97 02/02/20 13:30 68 19 117/74 97 02/02/20 13:15 69 22 111/68 97 02/02/20 13:00 68 17 115/71 97 02/02/20 12:45 68 19 119/73 97 02/02/20 12:30 70 23 116/75 98 02/02/20 12:15 70 16 120/76 97 02/02/20 12:00 98.2 F 70 19 111/72 98 02/02/20 11:45 69 16 112/67 98 02/02/20 11:30 70 16 114/74 97 02/02/20 11:15 70 16 108/66 98 02/02/20 11:00 69 16 109/73 98 02/02/20 10:30 70 21 103/70 97 02/02/20 10:00 71 16 110/63 97 02/02/20 09:30 70 20 119/81 97 02/02/20 09:00 66 15 156/87 97 11/03/20 08:30 66 16 93/57 98 02/02/20 08:00 99.6 F 67 15 86/58 98 02/02/20 07:00 67 18 103/64 98 02/02/20 06:30 66 17 92/59 99 02/02/20 06:00 66 15 90/62 98 02/02/20 05:30 65 19 84/55 98 02/02/20 05:00 61 14 88/47 98 02/02/20 04:30 58 L 14 97/60 98 02/02/20 04:00 94.0 F L 57 L 14 112/79 98 02/02/20 03:30 52 L 14 86/60 99 02/02/20 03:00 51 L 14 122/89 98 02/02/20 02:30 65 14 81/52 99 02/02/20 02:00 45 L 14 85/54 98 02/02/20 01:30 43 L 14 89/58 99 02/02/20 01:00 41 L 14 90/58 99 02/02/20 00:40 41 L 14 84/55 99 02/02/20 00:30 41 L 15 89/51 02/02/20 00:00 93.0 F L 42 L 14 82/46 99 02/01/20 23:30 42 L 14 77/44 99 02/01/20 23:00 44 L 14 73/47 99 02/01/20 22:30 46 L 14 81/54 99 02/01/20 22:10 46 L 14 84/56 100 02/01/20 22:00 45 L 18 98/73 100 02/01/20 21:33 48 L 16 78/49 100 02/01/20 21:15 48 L 14 78/52 100 02/01/20 21:00 48 L 14 64/56 100 02/01/20 20:45 48 L 14 81/53 100 02/01/20 20:35 46 L 14 97/56 100 02/01/20 20:28 46 L 12 80/61 100 02/01/20 20:00 47 L 14 90/56 100 02/01/20 19:23 45 L 14 102/54 100 02/01/20 18:35 45 L 86/61 02/01/20 18:19 96.8 F L 47 L 15 85/59 99 02/01/20 17:48 97.8 F 54 L 10 L 90/52 100 02/01/20 17:44 10 L Intake and Output 02/02/20 02/02/20 02/02/20 06:59 14:59 22:59 Intake Total 3040 1790 Output Total 800 1220 Balance 2240 570 Intake: IV 910 Sodium Chloride 0.9% 1, 910 000 ml @ 130 mls/hr IV . Q7H42M [facility] Rx#:[id number] Intake, IV Titration 3040 830 Amount Magnesium Sulfate-D5w Pmx 200 1 gm In Dextrose/Water 1 100ml.bag @ 100 mls/hr IVPB Q1H [facility] Rx#: [id number] Sodium Chloride 0.9% 1, 1040 130 000 ml @ 130 mls/hr IV . Q7H42M [facility] Rx#:[id number] Sodium Chloride 0.9% 2, 2000 500 000 ml @ 999 mls/hr IV . Q2H1M [facility] Rx#:[id number] Tube Feeding 20 Other 30 Output: Urine 800 1220 Other: Voiding Method Indwelling Catheter Indwelling Catheter Weight 68.039 kg ABP, PAP, CO, CI - Last 8 Hours Arterial Blood Pressure 112/60 Arterial Blood Pressure 99/53 Arterial Blood Pressure 113/60 Arterial Blood Pressure 108/57 Arterial Blood Pressure 113/60 Arterial Blood Pressure 111/58 Arterial Blood Pressure 110/58 Arterial Blood Pressure 117/61 Arterial Blood Pressure 112/58 Arterial Blood Pressure 117/61 Arterial Blood Pressure 111/59 Arterial Blood Pressure 102/54 Arterial Blood Pressure 109/57 Arterial Blood Pressure 104/55 Arterial Blood Pressure 110/63 Arterial Blood Pressure 111/64 Arterial Blood Pressure 120/69 Arterial Blood Pressure 71/34 Physical Exam: Revealed a 50-year-old female unresponsive to any stimuli, on mechanical ventilation. Head: Atraumatic, normocephalic. Endotracheal tube and orogastric tubes are intact. HEENT:[Neck is supple.] [No neck masses.] [No thyromegaly.] [No JVD.] No icterus. Dry mucous membranes noted. Chest: [Clear throughout, no crackles, no rhonchi, no wheezes.] Cardiac Exam: [Normal S1 and S2, no S3 gallop, no murmur.] Abdomen: [Soft, nontender, no megaly, no rebound, no guarding, normal bowel sounds.] Extremities: [No clubbing, no edema, no cyanosis.] Neurological Exam: Patient is comatose with Glascow coma score of 3. Not responding to any verbal or painful stimuli. Pupils are round, bilaterally reactive to light positive corneal reflex. No facial weakness is noted. P lantars are mute bilaterally. Psychiatric could not be assessed. Musculoskeletal could not be assessed Results - Laboratory Findings CBC and BMP: 02/02/20 04:34 02/02/20 04:34 ABG ABG pH 7.33 (7.35-7.45) L 02/02/20 07:19 ABG pCO2 42 mmHg (35-45) 02/02/20 07:19 ABG pO2 151 mmHg (83-108) H 02/02/20 07:19 ABG O2 Saturation 99.9 % (94-97) H 02/02/20 07:19 Abnormal lab findings: Abnormal Labs 02/01/20 02/01/20 02/01/20 18:01 18:02 18:02 WBC RBC 3.73 L MCHC Neutrophils # ABG pH ABG pO2 ABG HCO3 ABG O2 Saturation Sodium 136 L Chloride 111 H Carbon Dioxide Glucose 113 H POC Glucose (mg/dL) 110 H Calcium 8.1 L Total Protein 5.6 L Albumin 3.1 L Amylase <30 L Urine Appearance Urine Nitrite Urine Bacteria Hyaline Casts Urine Mucus Urine Opiates Screen Ur Barbiturates Screen Phenobarbital U Benzodiazepines Scrn U Marijuana (THC) Screen 02/01/20 02/01/20 02/01/20 18:03 18:47 22:02 WBC RBC MCHC Neutrophils # ABG pH 7.28 L ABG pO2 >400 H ABG HCO3 20 L ABG O2 Saturation 100.0 H Sodium Chloride Carbon Dioxide Glucose POC Glucose (mg/dL) 120 H Calcium Total Protein Albumin Amylase Urine Appearance Cloudy H Urine Nitrite Positive H Urine Bacteria Rare H Hyaline Casts 7 H Urine Mucus Rare H Urine Opiates Screen Detected H Ur Barbiturates Screen Detected H Phenobarbital U Benzodiazepines Scrn Detected H U Marijuana (THC) Screen Detected H 02/02/20 02/02/20 02/02/20 01:49 04:34 04:34 WBC 11.0 H RBC MCHC 30.6 L Neutrophils # 8.3 H ABG pH 7.29 L ABG pO2 113 H ABG HCO3 18 L ABG O2 Saturation 99.2 H Sodium Chloride Carbon Dioxide Glucose POC Glucose (mg/dL) Calcium Total Protein Albumin Amylase Urine Appearance Urine Nitrite Urine Bacteria Hyaline Casts Urine Mucus Urine Opiates Screen Ur Barbiturates Screen Phenobarbital 1.1 L U Benzodiazepines Scrn U Marijuana (THC) Screen 02/02/20 02/02/20 02/02/20 04:34 07:19 12:13 WBC RBC MCHC Neutrophils # ABG pH 7.33 L ABG pO2 151 H ABG HCO3 ABG O2 Saturation 99.9 H Sodium Chloride 116 H Carbon Dioxide 20 L Glucose 151 H POC Glucose (mg/dL) 122 H Calcium 7.2 L Total Protein 5.7 L Albumin 3.2 L Amylase Urine Appearance Urine Nitrite Urine Bacteria Hyaline Casts Urine Mucus Urine Opiates Screen Ur Barbiturates Screen Phenobarbital U Benzodiazepines Scrn U Marijuana (THC) Screen - Diagnostic Findings Chest x-ray: image reviewed (No evidence of acute process noted on chest x-ray. Right subclavian catheter seems to be in proper position.) Additional studies: CT of the brain is basically unremarkable. Echocardiogram showed moderately impaired ejection fraction/systolic dysfunction with EF of 35-40%. Assessment and Plan Assessment: Impression: Acute hypoxic and was failure secondary to multiple drugs overdose/suicidal intent. Polysubstance abuse. Suspect cerebral anoxic brain injury due to suicidal attempts. History of fibromyalgia. Recommendation: Continue ventilatory support. Adjust ventilator settings accordingly and based on ABG findings. Continue fluids and discontinue norepinephrine Nutritional support. GI and DVT prophylaxis. Neurological consultation to assess her anoxic brain injury and workup is in progress including EEG. Overall prognosis is extremely poor and guarded, We'll continue to follow. Patient is critically ill. Prognosis is extremely poor. Time with Patient: Greater than 30
[2020-02-02] MEDS ORDERED: levETIRAcetam IV 1,500 MG in SALINE 1 100ML.BAG IVPB STA (16:12)
--- NOTE | 2020-02-02 16:37 | EEG ---
ELECTROENCEPHALOGRAM REPORT DATE OF SERVICE: 02/02/2020 CLINICAL HISTORY: This is a 50-year-old woman who presented to the Emergency Department via EMS on 02/01/2020 after being found unresponsive from a suicide attempt. The video EEG was obtained to evaluate for seizure and epileptiform activity. RELEVANT MEDICATION: Patient is not on any centrally active medication. EEG TYPE: A routine 21 channel was performed with video using the 10-20 electrode placement system. DESCRIPTION: The patient is intubated and on the ventilator, but is not on any sedation. The patient does not have any clear background over bilateral hemisphere. The background consists of diffuse suppression with burst activity over bilateral hemisphere. During this suppression state: There are diffuse suppression over bilateral hemisphere lasting 8 seconds to 24 seconds. During the burst activity state: There are high voltage of generalized poly sharp/spike with slowing lasting 1-2 seconds over bilateral hemisphere. ICTAL ACTIVITY: None. ACTIVATION PROCEDURE: Photic stimulation and hyperventilation was not performed because of the patient clinical history. CLINICAL INTERPRETATION: This is an abnormal routine EEG. The burst suppression activity seen over bilateral hemisphere is likely due to anoxic brain injury.The generalized epileptiform discharges increases risk of seizure. The background slowing is likely suggestive of severe encephalopathy due to toxic-metabolic encephalopathy. There are no focal slowing or active seizure during this study. Clinical correlation is recommended. MMODL / IJN: [id number] / GARRETT
--- NOTE | 2020-02-02 17:49 | PCN ---
PROCEDURE NOTE OPERATIVE PROCEDURE: Placement of a right brachial arterial line. PREOPERATIVE DIAGNOSIS: Acute hypoxic respiratory failure secondary to a drug overdose. POSTOPERATIVE DIAGNOSIS: Acute hypoxic respiratory failure secondary to drug overdose. ANESTHESIA: Used none deployed. PROCEDURE DETAILS: The patient was placed in the supine position, the right brachial region was prepared in a sterile fashion. The drapes were applied. The right brachial artery was palpated, cannulated, and a guidewire was placed. A Cook catheter was inserted over the guidewire, the guidewire was removed. Good blood flow and good waveform noted, no evidence of any immediate complication. The line was secured using 3.0 silk sutures. MMODL / IJN: [id number] /
[2020-02-02 18:57] LABS: Glucose,Whole Blood 123 mg/dL (75-99)
[2020-02-02] MEDS: CHLORHEXIDINE GLUCONATE 15 ML CUP MUCOUS MEM SCH (20:10)
[2020-02-02] MEDS: levETIRAcetam IV 1,000 MG in SALINE 1 100ML.BAG IVPB SCH (20:10)
[2020-02-03 00:02] LABS: Glucose,Whole Blood 119 mg/dL (75-99)
[2020-02-03] MEDS: NOREPINEPHRINE 32 MG in SODIUM CHLORIDE 0.9% 218 ML IV SCH ×2 (01:12→23:53)
[2020-02-03] MEDS: SODIUM CHLORIDE 0.9% 1,000 ML IV SCH ×3 (03:40→19:15)
[2020-02-03 04:16] LABS: Basophils % (A) 0 %; Eosinophils # (A) 0.1 k/uL (0-0.7); Eosinophils % (A) 1 %; HCT 37.2 % (34.0-46.0); HGB 11.9 gm/dL (11.4-16.0); Lymphocytes # (A) 1.8 k/uL (1.0-4.8); Lymphocytes % (A) 14 %; MCH 31.1 pg (25.0-35.0); MCV 97.3 fL (80.0-100.0); Mean Platelet Volume 6.9; Monocytes # (A) 0.6 k/uL (0-1.0); Monocytes % (A) 5 %; Neutrophils # (A) 10.8 k/uL (1.3-7.7); Neutrophils % (A) 80 %; Platelet Count 248 k/uL (150-450); RBC 3.82 m/uL (3.80-5.40); RDW 13.6 % (11.5-15.5); WBC 13.6 k/uL (3.8-10.6)
[2020-02-03 04:30] LABS: ALT 11 U/L (4-34); AST 23 U/L (14-36); African American GFR (CKD) >90 (>60 ml/min/1.73 sqM); Albumin 2.6 g/dL (3.5-5.0); Alkaline Phosphatase 53 U/L (38-126); Anion Gap 5 mmol/L; Blood Urea Nitrogen 4 mg/dL (7-17); Calcium 7.3 mg/dL (8.4-10.2); Carbon Dioxide 18 mmol/L (22-30); Chloride 109 mmol/L (98-107); Glucose 130 mg/dL (74-99); Magnesium 2.1 mg/dL (1.6-2.3); Non-African American GFR(CKD) >90 (>60 ml/min/1.73 sqM); Potassium 3.7 mmol/L (3.5-5.1); Sodium 132 mmol/L (137-145); Total Bilirubin 0.4 mg/dL (0.2-1.3); Total Protein 5.1 g/dL (6.3-8.2)
[2020-02-03] MEDS ORDERED: POTASSIUM BICARBONATE/CIT AC 20 MEQ TABLET.EFF NG-TUBE SCH (05:00)
[2020-02-03 06:17] LABS: Glucose,Whole Blood 115 mg/dL (75-99)
[2020-02-03 07:11] LABS: ABG Base Excess -6.2 mmol/L; ABG HCO3 19 mmol/L (21-25); ABG Oxygen Saturation 99.3 % (94-97); ABG PCO2 30 mmHg (35-45); ABG PO2 112 mmHg (83-108); ABG TCO2 20 mmol/L (19-24)
[2020-02-03 07:14] LABS: Allen Test Performed? No
--- NOTE | 2020-02-03 07:43 | XR ---
EXAMINATION TYPE: XR chest 1V portable DATE OF EXAM: 02/03/2020 CLINICAL HISTORY: Difficulty breathing progress study. TECHNIQUE: Single AP portable upright view of the chest is obtained. COMPARISON: Chest x-ray from 2 days earlier FINDINGS: Interval improved positioning of endotracheal tube after retraction now at inferior clavicu lar margin. Oral gastric tube and right subclavian central venous catheter are redemonstrated. No rig ht basilar opacity silhouetting right hemidiaphragm. Persistent patchy left basilar atelectasis. No p neumothorax seen bilaterally. Cardiac silhouette size stable and within normal limits. Osseous struct ures are intact. IMPRESSION: New right basilar acute infiltrate and/or atelectasis and suspected small right pleural e ffusion.
[2020-02-03] MEDS: PANTOPRAZOLE 40 MG/10 ML VIAL IV SCH (10:04)
[2020-02-03] MEDS: PIPERACILLIN-TAZOBACTAM 3.375 GM in SODIUM CHLORIDE 0.9% 100 ML IVPB SCH ×3 (10:05→23:52)
[2020-02-03] MEDS: THIAMINE 100 MG in SODIUM CHLORIDE 0.9% 50 ML IVPB SCH (10:05)
[2020-02-03] MEDS: CHLORHEXIDINE GLUCONATE 15 ML CUP MUCOUS MEM SCH ×2 (10:05→19:45)
[2020-02-03] MEDS: HEPARIN SODIUM,PORCINE 5,000 UNIT/ML 1 ML VIAL SQ SCH ×3 (10:05→23:52)
[2020-02-03] MEDS: levETIRAcetam IV 1,000 MG in SALINE 1 100ML.BAG IVPB SCH (10:49)
[2020-02-03 12:19] LABS: Glucose,Whole Blood 125 mg/dL (75-99)
--- NOTE | 2020-02-03 12:51 | P.PN ---
Subjective Progress Note Date: 02/03/20 Principal diagnosis: Acute hypoxic respiratory failure secondary to overdose This is a 50-year-old female with history of fibromyalgia, patient was found unresponsive by her with a needle in her antecubital space. Supposedly the patient had a suicidal note her and she may have used some unknown medications, the believe it's possibly some medication used to euthanize dogs. Patient was brought into the ER by EMS, and she was unresponsive upon presentation, bradycardic and she had labored breathing. Received 2 mg of Narcan, and there was no response. Patient was admitted to the ICU on mechanical ventilation, and I was asked to see her on consultation. Apparently poison control was notified about her presentation, and mostly recommended supportive care measures only. Her drug screen came back positive for opiates, benzodiazepines, and marijuana. Rest of the drug screen was basically unremarkable. Patient is not in the ICU, and I saw on consultation, she is on mechanical ventilation, and her ventilator settings are assist control rate of 14 tidal volume is 400 FiO2 50% PEEP of 5. Her ABG showed a pO2 of 113 pCO2 of 38 pH of 7.9. She is on IV fluid in the form of 0.9 normal saline at 1 40 mL per hour and she is also on norepinephrine at 0.05 mcg/kg/m. Chest x-ray is basically unremarkable. CBC is relatively normal. Repeat ABG after ventilator adjustments made showed a pO2 of 151 pCO2 of 42 pH of 7.33. Patient remained on 50% FiO2. Electrolytes and renal profile are normal. Patient was reevaluated today on 02/03/20, patient remains in the ICU, intubated and mechanically ventilated. She is on assist control rate of 16 tidal volume is 400 FiO2 is 35% PEEP is 5. ABG showed a pO2 of 112 pCO2 of 30 0 pH of 7.40. Chest x-ray is showing now what seems to be a right lower lobe pneumonia has recommended starting the patient on Zosyn. Patient remains on norepinephrine at 0.06 mcg/kg/m, she was seen by neurology and her EEG was abnormal hence she was started on Keppra. Electrolytes are normal bicarb is a bit low at 18. Renal profile is normal. Neurologically the patient remains unresponsive to any stimuli. EEG showed evidence of anoxic brain injury and generalized epileptiform discharges, patient is at high risk of developing seizures. Neurological status was discussed with the neurologist who actually discussed her condition with the . Clearly the patient sustained some severe anoxic brain injury. Objective - Vital Signs Vital signs: Vital Signs Temp 100.2 F H 02/03/20 12:00 Pulse 75 02/03/20 12:00 Resp 30 H 02/03/20 12:00 BP 125/84 02/02/20 16:15 Pulse Ox 96 02/03/20 12:00 Intake & Output 02/02/20 02/03/20 02/03/20 18:59 06:59 18:59 Intake Total 2380 2028.328 930 Output Total 1680 1525 545 Balance 700 503.328 385 Weight 68.039 kg 69.4 kg Intake: IV 1430 1560 900 Piperacillin-Tazobactam 3 100 .375 gm In Sodium Chloride 0.9% 100 ml @ 25 mls/hr IVPB Q8HR [facility] Rx# :[id number] Sodium Chloride 0.9% 1, 1430 1560 650 000 ml @ 130 mls/hr IV . Q7H42M [facility] Rx#:[id number] Thiamine 100 mg In Sodium 50 Chloride 0.9% 50 ml @ 100 mls/hr IVPB DAILY [facility] Rx#:[id number] levETIRAcetam IV 1,000 mg 100 In Saline 1 100ml.bag @ 400 mls/hr IVPB Q12HR [facility] Rx#:[id number] Intake, IV Titration 830 138.328 Amount Magnesium Sulfate-D5w Pmx 200 1 gm In Dextrose/Water 1 100ml.bag @ 100 mls/hr IVPB Q1H [facility] Rx#: [id number] Norepinephrine 32 mg In 38.328 Sodium Chloride 0.9% 218 ml @ 0.05 MCG/KG/MIN 1. 595 mls/hr IV .Q24H [facility] Rx#:[id number] Sodium Chloride 0.9% 1, 130 000 ml @ 130 mls/hr IV . Q7H42M [facility] Rx#:[id number] Sodium Chloride 0.9% 2, 500 000 ml @ 999 mls/hr IV . Q2H1M [facility] Rx#:[id number] levETIRAcetam IV 1,000 mg 100 In Saline 1 100ml.bag @ 400 mls/hr IVPB Q12HR [facility] Rx#:[id number] Tube Feeding 60 240 30 Other 60 90 Output: Urine 1680 1525 545 Other: Voiding Method Indwelling Catheter Indwelling Catheter ABP, PAP, CO, CI - Last Documented Arterial Blood Pressure 119/66 - Exam Physical Exam: Revealed a 50-year-old female unresponsive to any stimuli, on mechanical ventilation. Head: Atraumatic, normocephalic. Endotracheal tube and orogastric tubes are intact. HEENT:[Neck is supple.] [No neck masses.] [No thyromegaly.] [No JVD.] No icterus. Dry mucous membranes noted. Chest: [Clear throughout, no crackles, no rhonchi, no wheezes.] Cardiac Exam: [Normal S1 and S2, no S3 gallop, no murmur.] Abdomen: [Soft, nontender, no megaly, no rebound, no guarding, normal bowel sounds.] Extremities: [No clubbing, no edema, no cyanosis.] Neurological Exam: Patient is comatose with Glascow coma score of 3. Not responding to any verbal or painful stimuli. Pupils are round, bilaterally reactive to light positive corneal reflex. No facial weakness is noted. Plantars are mute bilaterally. Psychiatric could not be assessed. Musculoskeletal could not be assessed - Labs CBC & Chem 7: 02/03/20 04:00 02/03/20 04:00 Labs: Abnormal Lab Results - Last 24 Hours (Table) 02/02/20 02/03/20 02/03/20 Range/Units 18:56 00:01 04:00 WBC 13.6 H (3.8-10.6) k/uL Neutrophils # 10.8 H (1.3-7.7) k/uL ABG pCO2 (35-45) mmHg ABG pO2 (83-108) mmHg ABG HCO3 (21-25) mmol/L ABG O2 Saturation (94-97) % Sodium (137-145) mmol/L Chloride (98-107) mmol/L Carbon Dioxide (22-30) mmol/L BUN (7-17) mg/dL Glucose (74-99) mg/dL POC Glucose (mg/dL) 123 H 119 H (75-99) mg/dL Calcium (8.4-10.2) mg/dL Total Protein (6.3-8.2) g/dL Albumin (3.5-5.0) g/dL 02/03/20 02/03/20 02/03/20 Range/Units 04:00 06:16 07:10 WBC (3.8-10.6) k/uL Neutrophils # (1.3-7.7) k/uL ABG pCO2 30 L (35-45) mmHg ABG pO2 112 H (83-108) mmHg ABG HCO3 19 L (21-25) mmol/L ABG O2 Saturation 99.3 H (94-97) % Sodium 132 L (137-145) mmol/L Chloride 109 H (98-107) mmol/L Carbon Dioxide 18 L (22-30) mmol/L BUN 4 L (7-17) mg/dL Glucose 130 H (74-99) mg/dL POC Glucose (mg/dL) 115 H (75-99) mg/dL Calcium 7.3 L (8.4-10.2) mg/dL Total Protein 5.1 L (6.3-8.2) g/dL Albumin 2.6 L (3.5-5.0) g/dL 02/03/20 Range/Units 12:16 WBC (3.8-10.6) k/uL Neutrophils # (1.3-7.7) k/uL ABG pCO2 (35-45) mmHg ABG pO2 (83-108) mmHg ABG HCO3 (21-25) mmol/L ABG O2 Saturation (94-97) % Sodium (137-145) mmol/L Chloride (98-107) mmol/L Carbon Dioxide (22-30) mmol/L BUN (7-17) mg/dL Glucose (74-99) mg/dL POC Glucose (mg/dL) 125 H (75-99) mg/dL Calcium (8.4-10.2) mg/dL Total Protein (6.3-8.2) g/dL Albumin (3.5-5.0) g/dL Microbiology - Last 24 Hours (Table) 02/01/20 18:22 Gram Stain - Final Sputum Sputum Culture - Final Assessment and Plan Assessment: Impression: Acute hypoxic and was failure secondary to multiple drugs overdose/suicidal intent. Polysubstance abuse. Suspect cerebral anoxic brain injury due to suicidal attempts. History of fibromyalgia. Abnormal EEG, patient is at potential risk of developing seizures, this is being addressed by neurology. Recommendation: Continue ventilatory support. Continue Keppra. No changes were made in her ventilatory settings today. Discontinue norepinephrine as her mean arterial pressure is above 60. Continue IV fluids. Nutritional support. GI and DVT prophylaxis. Discussed her condition with neurology on the case. Prognosis extremely poor and guarded. We'll continue to follow. Patient is critically ill. Critical care time is 33 minutes Time with Patient: Greater than 30
[2020-02-03 16:00] LABS: Hemoglobin A1C 5.6 % (4.0-6.0)
[2020-02-03 17:57] LABS: Glucose,Whole Blood 97 mg/dL (75-99)
[2020-02-03] MEDS ORDERED: levETIRAcetam IV 1,500 MG in SALINE 1 100ML.BAG IVPB STA (18:29)
--- NOTE | 2020-02-03 18:29 | EEG ---
ELECTROENCEPHALOGRAM REPORT DATE OF SERVICE: 02/03/2020 CLINICAL HISTORY: This is a 50-year-old woman who presented to the emergency department via EMS on 02/01/2020 after being found unresponsive from a suicide attempt. The patient continues to have altered mental status. The video EEG was obtained to evaluate for seizure and epileptiform activity. RELEVANT MEDICATION: The patient is on Keppra. EEG TYPE: A routine 21-channel was performed with video using the 10/20 electrode placement system. DESCRIPTION: The patient is intubated and is on a ventilator but is not on any IV sedation. The patient does not have any clear background over bilateral hemispheres. The background consists of diffuse suppression with burst activity over bilateral hemispheres. During the suppression state, there is diffuse suppression over bilateral hemispheres lasting 1-3 seconds. During the burst suppression activity state, there is moderate to high voltage of generalized sharp/spike and at times polyspike/sharps with polymorphic slow waves lasting 7 seconds to 17 seconds. ICTAL ACTIVITY: None. ACTIVATION PROCEDURES: Photic stimulation: There was no photic driving noted over the bilateral hemispheres. Hyperventilation was not performed because of the patient's clinical history. CLINICAL INTERPRETATION: This is an abnormal routine EEG. The burst/suppression activity seen over bilateral hemispheres is likely due to anoxic brain injury. The generalized epileptiform discharges increase the risk of seizure. The background slowing is likely suggestive of severe encephalopathy due to toxic metabolic encephalopathy. There are no focal slowing or seizure activity during the study. This EEG seems worse compared to the 02/02/2020 EEG because of worsening of burst suppression activity. Clinical correlation is recommended. MMKEAGAN / BRYNNN: [id number] / [facility] FACILITYCatie
--- NOTE | 2020-02-03 19:09 | P.PN ---
Subjective Progress Note Date: 02/03/20 Patient was seen at bedside and continues to be intubated on a ventilator and without any as sedations. Per the patient nurseseizure-like activity seen. Her condition has not changed since the patient's been here. She is on Levophed because of the hypotension. Objective - Vital Signs Vital signs: Vital Signs Temp 98.5 F 02/03/20 18:00 Pulse 90 02/03/20 18:00 Resp 32 H 02/03/20 18:00 BP 125/84 02/02/20 16:15 Pulse Ox 94 L 02/03/20 18:00 Intake & Output 02/02/20 02/03/20 02/03/20 18:59 06:59 18:59 Intake Total 2380 2028.328 1810 Output Total 1680 1525 1255 Balance 700 503.328 555 Weight 68.039 kg 69.4 kg Intake: IV 1430 1560 1780 Piperacillin-Tazobactam 3 200 .375 gm In Sodium Chloride 0.9% 100 ml @ 25 mls/hr IVPB Q8HR [facility] Rx# :[id number] Sodium Chloride 0.9% 1, 1430 1560 1430 000 ml @ 130 mls/hr IV . Q7H42M [facility] Rx#:[id number] Thiamine 100 mg In Sodium 50 Chloride 0.9% 50 ml @ 100 mls/hr IVPB DAILY [facility] Rx#:[id number] levETIRAcetam IV 1,000 mg 100 In Saline 1 100ml.bag @ 400 mls/hr IVPB Q12HR [facility] Rx#:[id number] Intake, IV Titration 830 138.328 Amount Magnesium Sulfate-D5w Pmx 200 1 gm In Dextrose/Water 1 100ml.bag @ 100 mls/hr IVPB Q1H [facility] Rx#: [id number] Norepinephrine 32 mg In 38.328 Sodium Chloride 0.9% 218 ml @ 0.05 MCG/KG/MIN 1. 595 mls/hr IV .Q24H [facility] Rx#:[id number] Sodium Chloride 0.9% 1, 130 000 ml @ 130 mls/hr IV . Q7H42M [facility] Rx#:[id number] Sodium Chloride 0.9% 2, 500 000 ml @ 999 mls/hr IV . Q2H1M [facility] Rx#:[id number] levETIRAcetam IV 1,000 mg 100 In Saline 1 100ml.bag @ 400 mls/hr IVPB Q12HR [facility] Rx#:[id number] Tube Feeding 60 240 30 Other 60 90 Output: Urine 1680 1525 1255 Other: Voiding Method Indwelling Catheter Indwelling Catheter Indwelling Catheter ABP, PAP, CO, CI - Last Documented Arterial Blood Pressure 131/66 - Exam GENERAL: The patient is lying in bed and does not seem in acute distress. CHEST: The heart rate is regular rate rhythm. No murmurs to auscultation. . LUNG: Intubated and on ventilator. Clear to auscultation bilaterally no wheezing noted throughout. Not labored breathing. NEUROLOGICAL: Limited because of patient condition. Higher mental function: Comatose with GCS 3. The patient is not opening eyes and not following commands. Cranial nerves: Eyes are closed and had to manually open them. Primary gaze are center bilaterally. The pupils are round, right is 6mm and left is 3 mm and right is reactive to light while left is sluggishly reactive to light. +ve cornea reflex. No facial weakness noted bilaterally. Breathing over the vent. +ve gag reflex. Motor: Gait is defered. The strength is unable to assess because of condition. No spontaneous movement. Normal bulk. Normal tone. Cerebellum: Unable to assess. Sensation: Unable to assess but to painful stimuli does not grimace face. Reflexes (right/left): 1+ throughout. Plantars are mute bilaterally. - Labs CBC & Chem 7: 02/03/20 04:00 02/03/20 04:00 Labs: Abnormal Lab Results - Last 24 Hours (Table) 02/02/20 02/03/20 02/03/20 Range/Units 18:56 00:01 04:00 WBC 13.6 H (3.8-10.6) k/uL Neutrophils # 10.8 H (1.3-7.7) k/uL ABG pCO2 (35-45) mmHg ABG pO2 (83-108) mmHg ABG HCO3 (21-25) mmol/L ABG O2 Saturation (94-97) % Sodium (137-145) mmol/L Chloride (98-107) mmol/L Carbon Dioxide (22-30) mmol/L BUN (7-17) mg/dL Glucose (74-99) mg/dL POC Glucose (mg/dL) 123 H 119 H (75-99) mg/dL Calcium (8.4-10.2) mg/dL Total Protein (6.3-8.2) g/dL Albumin (3.5-5.0) g/dL 02/03/20 02/03/20 02/03/20 Range/Units 04:00 06:16 07:10 WBC (3.8-10.6) k/uL Neutrophils # (1.3-7.7) k/uL ABG pCO2 30 L (35-45) mmHg ABG pO2 112 H (83-108) mmHg ABG HCO3 19 L (21-25) mmol/L ABG O2 Saturation 99.3 H (94-97) % Sodium 132 L (137-145) mmol/L Chloride 109 H (98-107) mmol/L Carbon Dioxide 18 L (22-30) mmol/L BUN 4 L (7-17) mg/dL Glucose 130 H (74-99) mg/dL POC Glucose (mg/dL) 115 H (75-99) mg/dL Calcium 7.3 L (8.4-10.2) mg/dL Total Protein 5.1 L (6.3-8.2) g/dL Albumin 2.6 L (3.5-5.0) g/dL 02/03/20 Range/Units 12:16 WBC (3.8-10.6) k/uL Neutrophils # (1.3-7.7) k/uL ABG pCO2 (35-45) mmHg ABG pO2 (83-108) mmHg ABG HCO3 (21-25) mmol/L ABG O2 Saturation (94-97) % Sodium (137-145) mmol/L Chloride (98-107) mmol/L Carbon Dioxide (22-30) mmol/L BUN (7-17) mg/dL Glucose (74-99) mg/dL POC Glucose (mg/dL) 125 H (75-99) mg/dL Calcium (8.4-10.2) mg/dL Total Protein (6.3-8.2) g/dL Albumin (3.5-5.0) g/dL Microbiology - Last 24 Hours (Table) 02/01/20 18:22 Gram Stain - Final Sputum Sputum Culture - Final Assessment and Plan Assessment: This is a 50-year-old woman who presented that to the emergency department on 02/01/2020 after being found unresponsive with a suicidal notes. 1. Cerebal anoxic brain injury due to suicidal attempt (only has some brainstem reflex) 2. Encephalopathy due to above 3. Hypotensive shock likely due to #1 4. Acute Suicidal attempt 5. Polysubstance use 6. Acute respiratory failure secondary due to suicidal attempt from drug use. Plan: * EEG(02/02/20): Showed burst/suppression due to anoxic brain injury. There is severe encephalopathy likely due to toxic-metabolic effect. The generalized epileptiform discharges increases the risk of seizures. No electrographic seizure is seen. * As result of EEG I loaded the patient with Keppra 1.5gm once and started her on Keppra 1gm bid. * EEG (02/03/20) Pre-douglas report: Continue to showed burst/suppression likely due to anoxic brain injury. There is severe encephalopathy likely due to toxic- metabolic effect. The generalized epileptiform discharges increases the risk of seizures. No electrographic seizure is seen. The burst suppression seemed worse compared to 01/02/20 EEG study. * As a result I loaded the Patient with Keppra 1.5 g once and I increased the Keppra from 1 g twice a day to 1.5 g twice a day. I spoke with the patient on 02/02/2020 regarding the EEG finding and the need for long-term EEG but he desires for the patient to have continued met medical management at this facility. * 2-D echo: There is moderate global hypokinesis of left ventricle. Ejection fraction of the 35-40%. * Continue thiamine 100 mg daily IV. * I attempted to contact the patient spouce via phone today around 6 to 6:30 PM regarding given updates of the patient condition in the EEG finding but no response. The plan was discussed with the ICU team. Oscar Montes M.D. Neuro-hospitalist Time with Patient: Greater than 30
[2020-02-04 00:10] LABS: Glucose,Whole Blood 118 mg/dL (75-99)
[2020-02-04] MEDS: SODIUM CHLORIDE 0.9% 1,000 ML IV SCH ×3 (02:27→15:38)
[2020-02-04 04:28] LABS: Basophils % (A) 0 %; Eosinophils # (A) 0.1 k/uL (0-0.7); Eosinophils % (A) 1 %; HCT 29.9 % (34.0-46.0); Lymphocytes # (A) 1.6 k/uL (1.0-4.8); Lymphocytes % (A) 17 %; MCH 31.9 pg (25.0-35.0); MCHC 33.1 g/dL (31.0-37.0); MCV 96.4 fL (80.0-100.0); Mean Platelet Volume 7.4; Monocytes # (A) 0.6 k/uL (0-1.0); Monocytes % (A) 7 %; Neutrophils # (A) 7.2 k/uL (1.3-7.7); Neutrophils % (A) 74 %; Platelet Count 178 k/uL (150-450); RBC 3.11 m/uL (3.80-5.40); RDW 13.6 % (11.5-15.5); WBC 9.7 k/uL (3.8-10.6)
[2020-02-04 04:47] LABS: HGB 9.9 gm/dL (11.4-16.0)
[2020-02-04 05:08] LABS: African American GFR (CKD) >90 (>60 ml/min/1.73 sqM); Anion Gap 3 mmol/L; Blood Urea Nitrogen 5 mg/dL (7-17); Calcium 7.3 mg/dL (8.4-10.2); Carbon Dioxide 21 mmol/L (22-30); Chloride 110 mmol/L (98-107); Glucose 111 mg/dL (74-99); Non-African American GFR(CKD) >90 (>60 ml/min/1.73 sqM); Potassium 3.5 mmol/L (3.5-5.1); Sodium 134 mmol/L (137-145)
[2020-02-04] MEDS: POTASSIUM BICARBONATE/CIT AC 20 MEQ TABLET.EFF NG-TUBE SCH ×2 (06:45→09:04)
[2020-02-04 07:33] LABS: ABG Base Excess -3.1 mmol/L; ABG HCO3 22 mmol/L (21-25); ABG Oxygen Saturation 99.1 % (94-97); ABG PCO2 34 mmHg (35-45); ABG PH 7.41 (7.35-7.45); ABG PO2 98 mmHg (83-108); ABG TCO2 23 mmol/L (19-24)
[2020-02-04 07:34] LABS: Allen Test Performed? no
[2020-02-04] MEDS: HEPARIN SODIUM,PORCINE 5,000 UNIT/ML 1 ML VIAL SQ SCH ×2 (09:04→16:32)
[2020-02-04] MEDS: PIPERACILLIN-TAZOBACTAM 3.375 GM in SODIUM CHLORIDE 0.9% 100 ML IVPB SCH ×2 (09:04→16:32)
[2020-02-04] MEDS: PANTOPRAZOLE 40 MG/10 ML VIAL IV SCH (09:05)
[2020-02-04] MEDS: CHLORHEXIDINE GLUCONATE 15 ML CUP MUCOUS MEM SCH ×2 (09:05→21:08)
[2020-02-04] MEDS: levETIRAcetam IV 1,500 MG in SALINE 1 100ML.BAG IVPB SCH ×2 (09:05→21:08)
[2020-02-04] MEDS ORDERED: LORazepam 2 MG/ML INJ IV STA ×2 (09:06→13:37)
[2020-02-04] MEDS: THIAMINE 100 MG in SODIUM CHLORIDE 0.9% 50 ML IVPB SCH (10:03)
[2020-02-04 12:09] LABS: Glucose,Whole Blood 124 mg/dL (75-99)
--- NOTE | 2020-02-04 14:15 | P.PN ---
Subjective Progress Note Date: 02/04/20 Principal diagnosis: Acute hypoxic respiratory failure secondary to overdose This is a 50-year-old female with history of fibromyalgia, patient was found unresponsive by her with a needle in her antecubital space. Supposedly the patient had a suicidal note her and she may have used some unknown medications, the believe it's possibly some medication used to euthanize dogs. Patient was brought into the ER by EMS, and she was unresponsive upon presentation, bradycardic and she had labored breathing. Received 2 mg of Narcan, and there was no response. Patient was admitted to the ICU on mechanical ventilation, and I was asked to see her on consultation. Apparently poison control was notified about her presentation, and mostly recommended supportive care measures only. Her drug screen came back positive for opiates, benzodiazepines, and marijuana. Rest of the drug screen was basically unremarkable. Patient is not in the ICU, and I saw on consultation, she is on mechanical ventilation, and her ventilator settings are assist control rate of 14 tidal volume is 400 FiO2 50% PEEP of 5. Her ABG showed a pO2 of 113 pCO2 of 38 pH of 7.9. She is on IV fluid in the form of 0.9 normal saline at 1 40 mL per hour and she is also on norepinephrine at 0.05 mcg/kg/m. Chest x-ray is basically unremarkable. CBC is relatively normal. Repeat ABG after ventilator adjustments made showed a pO2 of 151 pCO2 of 42 pH of 7.33. Patient remained on 50% FiO2. Electrolytes and renal profile are normal. Patient was reevaluated today on 02/03/20, patient remains in the ICU, intubated and mechanically ventilated. She is on assist control rate of 16 tidal volume is 400 FiO2 is 35% PEEP is 5. ABG showed a pO2 of 112 pCO2 of 30 0 pH of 7.40. Chest x-ray is showing now what seems to be a right lower lobe pneumonia has recommended starting the patient on Zosyn. Patient remains on norepinephrine at 0.06 mcg/kg/m, she was seen by neurology and her EEG was abnormal hence she was started on Keppra. Electrolytes are normal bicarb is a bit low at 18. Renal profile is normal. Neurologically the patient remains unresponsive to any stimuli. EEG showed evidence of anoxic brain injury and generalized epileptiform discharges, patient is at high risk of developing seizures. Neurological status was discussed with the neurologist who actually discussed her condition with the . Clearly the patient sustained some severe anoxic brain injury. Reevaluated today on , patient remains in the ICU, intubated and mechanically ventilated. She is presently on assist control rate of 16 tidal volume is 400 FiO2 35% PEEP of 5. ABG showed a pO2 of 98 pCO2 of 34 pH of 7.41. Repeat EEG showed worsening picture of encephalopathy and brain activity. Patient remains on Zosyn empirically for presumptive aspiration pneumonia. ABG today showed a pO2 of 98 pCO2 of 34 pH of 7.41. Chest x-ray showed slight improvement in her right lower lobe infiltrate/atelectasis. Neurologically, the patient is about the same, she is not showing any signs of recovery. Apparently the was approached by the neurologist on the case, and he is planning to consider comfort care measures in the next couple of days. Basic metabolic profile today is normal. Renal profile is normal. CBC is also relatively normal. Objective - Vital Signs Vital signs: Vital Signs Temp 99.1 F 02/04/20 04:00 Pulse 74 02/04/20 11:00 Resp 21 02/04/20 11:00 BP 92/53 02/04/20 11:00 Pulse Ox 99 02/04/20 11:00 Intake & Output 02/03/20 02/04/20 02/04/20 18:59 06:59 18:59 Intake Total 0411.892 2410 1250 Output Total 1395 1455 610 Balance 568.090 571 640 Weight 66 kg Intake: IV 1910 1560 900 Piperacillin-Tazobactam 3 200 100 .375 gm In Sodium Chloride 0.9% 100 ml @ 25 mls/hr IVPB Q8HR [facility] Rx# :[id number] Sodium Chloride 0.9% 1, 1560 1560 650 000 ml @ 130 mls/hr IV . Q7H42M [facility] Rx#:[id number] Thiamine 100 mg In Sodium 50 50 Chloride 0.9% 50 ml @ 100 mls/hr IVPB DAILY [facility] Rx#:[id number] levETIRAcetam IV 1,000 mg 100 100 In Saline 1 100ml.bag @ 400 mls/hr IVPB Q12HR [facility] Rx#:[id number] Intake, IV Titration 23.090 Amount Norepinephrine 32 mg In 23.090 Sodium Chloride 0.9% 218 ml @ 0.05 MCG/KG/MIN 1. 595 mls/hr IV .Q24H [facility] Rx#:[id number] Oral 90 Tube Feeding 30 436 260 Other 30 Output: Urine 1395 1455 610 Other: Voiding Method Indwelling Catheter Indwelling Catheter ABP, PAP, CO, CI - Last Documented Arterial Blood Pressure 102/45 - Exam Physical Exam: Revealed a 50-year-old female unresponsive to any stimuli, on mechanical ventilation. Head: Atraumatic, normocephalic. Endotracheal tube and orogastric tubes are intact. HEENT:[Neck is supple.] [No neck masses.] [No thyromegaly.] [No JVD.] No icterus. Moist mucous membranes. Chest: [Clear throughout, no crackles, no rhonchi, no wheezes.] Cardiac Exam: [Normal S1 and S2, no S3 gallop, no murmur.] Abdomen: [Soft, nontender, no megaly, no rebound, no guarding, normal bowel sounds.] Extremities: [No clubbing, no edema, no cyanosis.] Neurological Exam: Patient is comatose with Glascow coma score of 3. Not responding to any verbal or painful stimuli. Pupils are round, bilaterally reactive to light positive corneal reflex. No facial weakness is noted. Plant ars are mute bilaterally. Psychiatric could not be assessed. Musculoskeletal could not be assessed - Labs CBC & Chem 7: 02/04/20 04:20 02/04/20 04:20 Labs: Abnormal Lab Results - Last 24 Hours (Table) 02/04/20 02/04/20 02/04/20 Range/Units 00:08 04:20 04:20 RBC 3.11 L (3.80-5.40) m/uL Hgb 9.9 L D (11.4-16.0) gm/dL Hct 29.9 L (34.0-46.0) % ABG pCO2 (35-45) mmHg ABG O2 Saturation (94-97) % Sodium 134 L (137-145) mmol/L Chloride 110 H (98-107) mmol/L Carbon Dioxide 21 L (22-30) mmol/L BUN 5 L (7-17) mg/dL Glucose 111 H (74-99) mg/dL POC Glucose (mg/dL) 118 H (75-99) mg/dL Calcium 7.3 L (8.4-10.2) mg/dL 02/04/20 02/04/20 Range/Units 07:27 12:08 RBC (3.80-5.40) m/uL Hgb (11.4-16.0) gm/dL Hct (34.0-46.0) % ABG pCO2 34 L (35-45) mmHg ABG O2 Saturation 99.1 H (94-97) % Sodium (137-145) mmol/L Chloride (98-107) mmol/L Carbon Dioxide (22-30) mmol/L BUN (7-17) mg/dL Glucose (74-99) mg/dL POC Glucose (mg/dL) 124 H (75-99) mg/dL Calcium (8.4-10.2) mg/dL Assessment and Plan Assessment: Impression: Acute hypoxic and was failure secondary to multiple drugs overdose/suicidal intent. Polysubstance abuse. Severe cerebral anoxic brain injury due to suicidal attempts. History of fibromyalgia. Abnormal EEG, patient is at potential risk of developing seizures, this is being addressed by neurology. Recommendation: Continue ventilatory support. Continue Keppra. Nutritional support. Hemodynamic support if needed. IV fluids. GI and DVT prophylaxis. Prognosis remains extremely poor, and the patient should be considered for comfort care measures and this will be addressed with the again. Chances of neurologic recovery is extremely poor. And I believe comfort care measures would be appropriate. No changes were made in her ventilatory settings today. Patient is critically ill, critical care time is 34 Time with Patient: Greater than 30
[2020-02-04] MEDS ORDERED: LACOSAMIDE IV 200 MG in SODIUM CHLORIDE 0.9% 50 ML IVPB STA (15:31)
--- NOTE | 2020-02-04 20:14 | P.HPIM ---
History of Present Illness H&P Date: 02/04/20 Chief Complaint: found unresponsive Patient is a 50-year-old female with a known history of fibromyalgia, GERD, anxiety/depression/PTSD and currently everyday smoker was initially brought to the hospital by EMS after being found unresponsive with a needle in her left antecubital space. Patient was found unconscious by her . Apparently patient has access to medications that are used in the veterinary clinic. Patient was unresponsive somnolent with bradycardia and labored breathing. Patient was given 2 mg of Narcan without any response by EMS personnel. Patient was transported to ER where she was intubated. Chest x-ray showed no acute process. No evident complication status post tube placement. CT head. Stable brain CT. No acute abnormality noted. EKG showed sinus bradycardia with heart rate 51 2D echocardiogram showed ejection fraction 35 to 40% with no significant valve abnormalities noted. Laboratory data showed sodium 136, potassium 4.1 BUN 11 creatinine 0.91 Calcium 8.1 Urinalysis showed nitrite positive and WBCs 1 UDS is positive for opiates, barbiturates, benzodiazepines, marijuana. ABG showed pH of 7.28, PCO2 42 and PO2 greater than 100 on admission. On 02/04/2020 Patient is currently on mechanical Ventilator with assist control. Patient had a repeat EEG today. Initial EEG showed evidence of anoxic brain injury and generalized epileptiform discharges. Neurologically patient did not make any improvement. Patient is being continued on antibiotics in the form of Zosyn for possible aspiration pneumonia. Pulmonary neurology is on board. Patient's primary care physician was entered as Dr. Roberts in the records and was admitted to hospital, MICU. [facility] [facility]. Current medications reviewed. Review of Systems Complete review of systems could not be obtained from the patient. Past Medical History Past Medical History: Fibromyalgia, GERD/Reflux, Musculoskeletal Disorder History of Any Multi-Drug Resistant Organisms: None Reported Past Surgical History: Appendectomy, Section, Hernia Repair, Hysterectomy, Orthopedic Surgery Additional Past Surgical History / Comment(s): abdominal surgeries post Hysterectomy, rt. knee-rt. elbow, left wrist. Pain clinic injections Past Anesthesia/Blood Transfusion Reactions: No Reported Reaction Past Psychological History: Anxiety, Depression, PTSD Smoking Status: Current every day smoker Past Alcohol Use History: Occasional Past Drug Use History: None Reported - Past Family History Mother Family Medical History: Cancer Medications and Allergies Home Medications Medication Instructions Recorded Confirmed Type lamoTRIgine [LaMICtal] 150 mg PO DIRECTED 09/03/13 02/01/20 History Topiramate [Topamax] 100 mg PO HS 09/07/13 02/01/20 History Propranolol LA [Inderal LA] 60 mg PO DAILY 11/09/13 02/01/20 History FLUoxetine HCL [PROzac] 80 mg PO HS 12/29/16 02/01/20 History ALPRAZolam [ALPRAZolam XR] 1 mg PO QAM 02/01/20 02/01/20 History ALPRAZolam [Xanax] 0.5 mg PO BID PRN 02/01/20 02/01/20 History Radha (Unknown Strength) 1 tab PO DAILY PRN 02/01/20 02/01/20 History Dicyclomine HCl 10 mg PO BID PRN 02/01/20 02/01/20 History traMADol HCL 50 mg PO Q6H PRN 02/01/20 02/01/20 History Allergies Allergy/AdvReac Type Severity Reaction Status Date / Time HAY FEVER Allergy Cough Uncoded 02/01/20 22:19 Physical Exam Vitals: Vital Signs Temp Pulse Pulse Resp BP BP Pulse Ox 02/04/20 06:00 72 27 H 111/45 98 02/04/20 05:00 72 16 110/46 97 02/04/20 04:00 99.1 F 73 25 H 115/50 96 02/04/20 03:00 75 16 116/61 98 02/04/20 02:00 70 25 H 110/48 97 02/04/20 01:00 75 25 H 115/51 96 02/04/20 00:00 99.2 F 79 26 H 97 02/03/20 23:00 82 27 H 98 02/03/20 22:00 84 26 H 104/42 98 02/03/20 21:00 86 24 104/42 96 02/03/20 20:00 100.5 F H 89 26 H 97 02/03/20 19:00 90 31 H 95 02/03/20 18:00 98.5 F 90 32 H 94 L 02/03/20 17:00 82 31 H 92 L 02/03/20 16:00 100.1 F H 80 31 H 97 02/03/20 15:00 77 32 H 98 02/03/20 14:00 76 31 H 99 02/03/20 13:00 77 31 H 96 02/03/20 12:00 100.2 F H 75 30 H 96 02/03/20 11:00 75 32 H 97 Intake and Output 02/03/20 02/04/20 02/04/20 22:59 06:59 14:59 Intake Total 6486.576 4708 182 Output Total 1005 940 125 Balance 217.935 486 57 Intake: IV 1140 1040 130 Piperacillin-Tazobactam 3 100 .375 gm In Sodium Chloride 0.9% 100 ml @ 25 mls/hr IVPB Q8HR [facility] Rx# :[id number] Sodium Chloride 0.9% 1, 1040 1040 130 000 ml @ 130 mls/hr IV . Q7H42M [facility] Rx#:[id number] Intake, IV Titration 2.935 Amount Norepinephrine 32 mg In 2.935 Sodium Chloride 0.9% 218 ml @ 0.05 MCG/KG/MIN 1. 595 mls/hr IV .Q24H [facility] Rx#:[id number] Tube Feeding 80 356 52 Other 30 Output: Urine 1005 940 125 Other: Voiding Method Indwelling Catheter Indwelling Catheter Weight 66 kg PHYSICAL EXAMINATION: Patient is Currently on mechanical ventilator. un responsive. HEENT: Normocephalic. Neck is supple. Pupils dilated. Nostrils clear. Oral cavity is moist. Ears reveal no drainage. Neck reveals no JVD, carotid bruits, or thyromegaly. CHEST EXAMINATION: Trachea is central. Symmetrical expansion. ET tube in place. bibasilar diminished air entry, Lung florez clear to auscultation and percussion. CARDIAC: Normal S1, S2 with no gallops. No murmurs ABDOMEN: Soft. Bowel sounds normal. No abdominal bruits. Extremities: reveal no edema. No clubbing or cyanosis Neurologically. unresponsive. Skin: No rash or skin lesions. Psychiatric: could not be asseded Musculoskeletal: No joint swelling or deformity. Results CBC & Chem 7: 02/04/20 04:20 02/04/20 04:20 Labs: Abnormal Lab Results - Last 24 Hours (Table) 02/03/20 02/04/20 02/04/20 Range/Units 12:16 00:08 04:20 RBC 3.11 L (3.80-5.40) m/uL Hgb 9.9 L D (11.4-16.0) gm/dL Hct 29.9 L (34.0-46.0) % ABG pCO2 (35-45) mmHg ABG O2 Saturation (94-97) % Sodium (137-145) mmol/L Chloride (98-107) mmol/L Carbon Dioxide (22-30) mmol/L BUN (7-17) mg/dL Glucose (74-99) mg/dL POC Glucose (mg/dL) 125 H 118 H (75-99) mg/dL Calcium (8.4-10.2) mg/dL 02/04/20 02/04/20 Range/Units 04:20 07:27 RBC (3.80-5.40) m/uL Hgb (11.4-16.0) gm/dL Hct (34.0-46.0) % ABG pCO2 34 L (35-45) mmHg ABG O2 Saturation 99.1 H (94-97) % Sodium 134 L (137-145) mmol/L Chloride 110 H (98-107) mmol/L Carbon Dioxide 21 L (22-30) mmol/L BUN 5 L (7-17) mg/dL Glucose 111 H (74-99) mg/dL POC Glucose (mg/dL) (75-99) mg/dL Calcium 7.3 L (8.4-10.2) mg/dL Microbiology - Last 24 Hours (Table) 02/01/20 18:22 Gram Stain - Final Sputum Sputum Culture - Final Thrombosis Risk Factor Assmnt - DVT/VTE Prophylaxis DVT/VTE Prophylaxis: Pharmacologic Prophylaxis ordered Assessment and Plan Assessment: Acute hypoxic respiratory failure secondary to multidrug overdose/ suicide attempt Severe anoxic brain injury secondary to above Polysubstance use History of fibromyalgia High risk for seizures anxiety/depression/PTSD ongoing Nicotine addiction DVT prophylaxis Heparin subcu Plan: Patient is currently on mechanical ventilator. Patient is not making progress neurologically. Repeat EEG was ordered. Neurology and pulmonary is on board. Continued on nutritional support and Keppra for seizure prophylaxis. Continued on IV hydration. Due to poor prognosis, family is considering comfort care measures. Time with Patient: Greater than 30
--- NOTE | 2020-02-04 21:01 | P.PN ---
Subjective Progress Note Date: 02/04/20 The patient was seen at bedside and and not per the patient's nurse the patient does not have any clinical seizure-like activity. She continues to be intubated and on ventilator. She is not on any sedation. I ordered Ativan 2mg to see if any improvement in EEG since yesterday seemed worse than day prior. She received it at 9:07AM. Objective - Vital Signs Vital signs: Vital Signs Temp 98.5 F 02/04/20 16:00 Pulse 74 02/04/20 19:00 Resp 17 02/04/20 19:00 BP 90/47 02/04/20 16:00 Pulse Ox 97 02/04/20 19:00 Intake & Output 02/04/20 02/04/20 02/05/20 06:59 18:59 06:59 Intake Total 2025 2726 182 Output Total 1455 1220 40 Balance 571 1506 142 Weight 66 kg 66 kg Intake: IV 1560 1960 130 Lacosamide IV 200 mg In 50 Sodium Chloride 0.9% 50 ml @ 100 mls/hr IVPB ONCE [facility] Rx#:[id number] Piperacillin-Tazobactam 3 200 .375 gm In Sodium Chloride 0.9% 100 ml @ 25 mls/hr IVPB Q8HR [facility] Rx# :[id number] Sodium Chloride 0.9% 1, 1560 1560 130 000 ml @ 130 mls/hr IV . Q7H42M [facility] Rx#:[id number] Thiamine 100 mg In Sodium 50 Chloride 0.9% 50 ml @ 100 mls/hr IVPB DAILY [facility] Rx#:[id number] levETIRAcetam IV 1,000 mg 100 In Saline 1 100ml.bag @ 400 mls/hr IVPB Q12HR [facility] Rx#:[id number] Oral 90 Tube Feeding 436 676 52 Other 30 Output: Urine 1455 1220 40 Other: Voiding Method Indwelling Catheter Indwelling Catheter ABP, PAP, CO, CI - Last Documented Arterial Blood Pressure 105/45 - Exam GENERAL: The patient is lying in bed and does not seem in acute distress. CHEST: The heart rate is regular rate rhythm. No murmurs to auscultation. . LUNG: Intubated and on ventilator. Clear to auscultation bilaterally no wheezing noted throughout. Not labored breathing. NEUROLOGICAL: Limited because of patient condition. Higher mental function: Comatose with GCS 3. The patient is not opening eyes and not following commands. Cranial nerves: Eyes are closed and had to manually open them. Primary gaze are center bilaterally. The pupils are round, right is 6mm and left is 2-3 mm. Right is reactive to light while left is sluggishly reactive to light. +ve cornea reflex. No facial weakness noted bilaterally. Breathing over the vent. +ve gag reflex. Motor: Gait is defered. The strength is unable to assess because of condition. No spontaneous movement. Flaccid in bilateral upper extremities. Normal tone in lower extremities. No spontaenous movement seen. Cerebellum: Unable to assess. Sensation: Unable to assess but to painful stimuli does not grimace face. Reflexes (right/left): 1+ throughout. Plantars are mute bilaterally. - Labs CBC & Chem 7: 02/04/20 04:20 02/04/20 04:20 Labs: Abnormal Lab Results - Last 24 Hours (Table) 02/04/20 02/04/20 02/04/20 Range/Units 00:08 04:20 04:20 RBC 3.11 L (3.80-5.40) m/uL Hgb 9.9 L D (11.4-16.0) gm/dL Hct 29.9 L (34.0-46.0) % ABG pCO2 (35-45) mmHg ABG O2 Saturation (94-97) % Sodium 134 L (137-145) mmol/L Chloride 110 H (98-107) mmol/L Carbon Dioxide 21 L (22-30) mmol/L BUN 5 L (7-17) mg/dL Glucose 111 H (74-99) mg/dL POC Glucose (mg/dL) 118 H (75-99) mg/dL Calcium 7.3 L (8.4-10.2) mg/dL 02/04/20 02/04/20 Range/Units 07:27 12:08 RBC (3.80-5.40) m/uL Hgb (11.4-16.0) gm/dL Hct (34.0-46.0) % ABG pCO2 34 L (35-45) mmHg ABG O2 Saturation 99.1 H (94-97) % Sodium (137-145) mmol/L Chloride (98-107) mmol/L Carbon Dioxide (22-30) mmol/L BUN (7-17) mg/dL Glucose (74-99) mg/dL POC Glucose (mg/dL) 124 H (75-99) mg/dL Calcium (8.4-10.2) mg/dL Assessment and Plan Assessment: This is a 50-year-old woman who presented that to the emergency department on 02/01/2020 after being found unresponsive with a suicidal notes. 1. Cerebal anoxic brain injury due to suicidal attempt (only has some brainstem reflex)--no improvement 2 Non-convulsive status due to above 3. Encephalopathy due to above 4. Hypotensive shock likely due to #1 5. Acute Suicidal attempt 6. Polysubstance use 7. Acute respiratory failure secondary due to suicidal attempt from drug use. Plan: * EEG(02/02/20): Showed burst/suppression due to anoxic brain injury. There is severe encephalopathy likely due to toxic-metabolic effect. The generalized epileptiform discharges increases the risk of seizures. No electrographic seizure is seen. * EEG (02/03/20) Continue to showed burst/suppression likely due to anoxic brain injury. There is severe encephalopathy likely due to toxic-metabolic effect. The generalized epileptiform discharges increases the risk of seizures. No electrographic seizure is seen. The burst suppression seemed worse compared to 01/02/20 EEG study. * Prolonged routine EEG (02/04/2020): EEG was concerning for nonconvulsive status epilepticus. The generalized epileptiform discharges increases risk of seizure. There is severe encephalopathy. The anterior to posterior lag with a triphasic morphology is likely due to toxic metabolic encephalopathy. * As a result of the current EEG I loaded the patient the with the Vimpat 200 mg once and started on Vimpat 100 mg twice a day. Continue Keppra 1.5 g twice a day. * 2-D echo: There is moderate global hypokinesis of left ventricle. Ejection fraction of the 35-40%. * Continue thiamine 100 mg daily IV. * I notified the patient's (who was at bedside) of the current findings of the EEG. I notified him that long-term EEG is needed which our facility does not have. He stated that he does not want the patient to be transferred and he was the patient to remain in this facility. He stated that he spoke with his son and are in agreement that on 02/06/2020 he was to make the patient comfort care. He does not want any further EEG's on her. I asked him how aggressive to be be for controlling seizures and he stated he wanted her to be pain-free in the meantime until 02/06/2020. The plan was discussed with the ICU team. Oscar Montes M.D. Neuro-hospitalist Time with Patient: Greater than 30
[2020-02-04] MEDS: LACOSAMIDE IV 100 MG in SODIUM CHLORIDE 0.9% 50 ML IVPB SCH (21:08)
[2020-02-04 23:36] LABS: Glucose,Whole Blood 98 mg/dL (75-99)
[2020-02-05] MEDS: PIPERACILLIN-TAZOBACTAM 3.375 GM in SODIUM CHLORIDE 0.9% 100 ML IVPB SCH ×3 (00:01→16:26)
[2020-02-05] MEDS: SODIUM CHLORIDE 0.9% 1,000 ML IV SCH ×3 (00:03→18:47)
[2020-02-05] MEDS: NOREPINEPHRINE 32 MG in SODIUM CHLORIDE 0.9% 218 ML IV SCH (00:57)
[2020-02-05 06:19] LABS: Basophils % (A) 0 %; Eosinophils # (A) 0.2 k/uL (0-0.7); Eosinophils % (A) 3 %; HGB 9.5 gm/dL (11.4-16.0); Lymphocytes # (A) 1.3 k/uL (1.0-4.8); Lymphocytes % (A) 23 %; MCH 31.7 pg (25.0-35.0); MCHC 32.7 g/dL (31.0-37.0); MCV 96.9 fL (80.0-100.0); Mean Platelet Volume 7.2; Monocytes # (A) 0.6 k/uL (0-1.0); Monocytes % (A) 10 %; Neutrophils # (A) 3.7 k/uL (1.3-7.7); Neutrophils % (A) 63 %; Platelet Count 212 k/uL (150-450); RBC 2.99 m/uL (3.80-5.40); RDW 13.8 % (11.5-15.5); WBC 5.9 k/uL (3.8-10.6)
[2020-02-05 06:31] LABS: African American GFR (CKD) >90 (>60 ml/min/1.73 sqM); Anion Gap 1 mmol/L; Blood Urea Nitrogen 6 mg/dL (7-17); Calcium 7.5 mg/dL (8.4-10.2); Carbon Dioxide 24 mmol/L (22-30); Chloride 110 mmol/L (98-107); Glucose 105 mg/dL (74-99); Non-African American GFR(CKD) >90 (>60 ml/min/1.73 sqM); Potassium 3.8 mmol/L (3.5-5.1); Sodium 135 mmol/L (137-145)
[2020-02-05 07:13] LABS: ABG Base Excess -1.3 mmol/L; ABG HCO3 23 mmol/L (21-25); ABG Oxygen Saturation 98.8 % (94-97); ABG PCO2 35 mmHg (35-45); ABG PH 7.43 (7.35-7.45); ABG PO2 99 mmHg (83-108); ABG TCO2 24 mmol/L (19-24)
[2020-02-05 07:14] LABS: Allen Test Performed? no
[2020-02-05] MEDS ORDERED: POTASSIUM BICARBONATE/CIT AC 20 MEQ TABLET.EFF NG-TUBE SCH (07:30)
--- NOTE | 2020-02-05 07:45 | EEG ---
ELECTROENCEPHALOGRAM REPORT DATE OF SERVICE: 02/04/2020 CLINICAL HISTORY: This is a 50-year-old woman who presented to the emergency department via EMS on 02/01/2020 after being found unresponsive from a suicide attempt. The patient continues to be unresponsive. Video EEG was obtained to evaluate for seizure and epileptiform activity. RELEVANT MEDICATIONS: Keppra, Ativan 2 mg at 9:07 on 02/04/2020, loading Keppra 1.5 grams on 02/03/2020 at 1843. EEG TYPE: A routine 21-channel was performed with video using the 10/20 electrode placement system. DESCRIPTION: The patient is intubated and is on ventilator but is not on IV sedation. The background consists of low to moderate voltage of diffuse 1 to 2 hertz delta slowing that is polymorphic and nonrhythmic over bilateral hemispheres. At times there is an anterior to posterior lag with triphasic morphology that is seen on stimulated and unstimulated state. There was no physiological stage II sleep seen. INTERICTAL AND ICTAL: There are frequent generalized low to moderate voltage sharp/spike with slow waves. There are frequent runs of moderate voltage of 2 to 2.5 hertz rhythmic delta activity over bilateral hemispheres lasting 12 seconds up to 55 seconds. Ativan 4 mg was given at 13:45, but there was no significant change in the background. There are also occasional runs of burst suppression lasting 1 to 3 seconds over bilateral hemispheres. CLINICAL INTERPRETATION: This is an abnormal prolonged EEG (1 hour and 6 minutes). The frequent rhythmic runs over the bilateral hemispheres are concerning for nonconvulsive status. The generalized epileptiform discharges increase the risk of seizure. The background slowing is likely suggestive of severe encephalopathy. The triphasic morphology is likely due to toxic metabolic encephalopathy. There is no focal slowing. This EEG is worse compared to the two previous EEGs on 02/02/2020 and 02/03/2020. Clinical correlation is recommended. RECOMMENDATION: senior living EEG is recommended. This was relayed to patient's in person. MMODL / IJN: [id number] / MTDCatie
--- NOTE | 2020-02-05 08:23 | XR ---
EXAMINATION TYPE: XR chest 1V portable DATE OF EXAM: 02/05/2020 CLINICAL HISTORY: ICU management . TECHNIQUE: Portable frontal view of the chest. COMPARISON: 02/03/2020 chest radiograph FINDINGS: Endotracheal tube, right subclavian central venous catheter, and enteric tube redemonstrat ed. Small right pleural effusion similar. New small left pleural effusion. Bibasilar airspace opaciti es. No pneumothorax. The cardiomediastinal silhouette is within normal limits for size. The osseous s tructures are intact. IMPRESSION: 1. New small left pleural effusion and increased left basilar airspace opacities. 2. Small right pleural effusion and right basilar airspace opacities are unchanged versus 02/03/2020.
[2020-02-05] MEDS: levETIRAcetam IV 1,500 MG in SALINE 1 100ML.BAG IVPB SCH ×2 (09:09→20:59)
[2020-02-05] MEDS: HEPARIN SODIUM,PORCINE 5,000 UNIT/ML 1 ML VIAL SQ SCH ×3 (09:09→16:26)
[2020-02-05] MEDS: CHLORHEXIDINE GLUCONATE 15 ML CUP MUCOUS MEM SCH ×2 (09:09→21:08)
[2020-02-05] MEDS: PANTOPRAZOLE 40 MG/10 ML VIAL IV SCH (09:09)
[2020-02-05] MEDS: THIAMINE 100 MG in SODIUM CHLORIDE 0.9% 50 ML IVPB SCH (09:27)
[2020-02-05] MEDS: LACOSAMIDE IV 100 MG in SODIUM CHLORIDE 0.9% 50 ML IVPB SCH ×2 (10:59→20:59)
--- NOTE | 2020-02-05 14:28 | P.PN ---
Subjective Progress Note Date: 02/05/20 Principal diagnosis: Acute hypoxic respiratory failure secondary to overdose This is a 50-year-old female with history of fibromyalgia, patient was found unresponsive by her with a needle in her antecubital space. Supposedly the patient had a suicidal note her and she may have used some unknown medications, the believe it's possibly some medication used to euthanize dogs. Patient was brought into the ER by EMS, and she was unresponsive upon presentation, bradycardic and she had labored breathing. Received 2 mg of Narcan, and there was no response. Patient was admitted to the ICU on mechanical ventilation, and I was asked to see her on consultation. Apparently poison control was notified about her presentation, and mostly recommended supportive care measures only. Her drug screen came back positive for opiates, benzodiazepines, and marijuana. Rest of the drug screen was basically unremarkable. Patient is not in the ICU, and I saw on consultation, she is on mechanical ventilation, and her ventilator settings are assist control rate of 14 tidal volume is 400 FiO2 50% PEEP of 5. Her ABG showed a pO2 of 113 pCO2 of 38 pH of 7.9. She is on IV fluid in the form of 0.9 normal saline at 1 40 mL per hour and she is also on norepinephrine at 0.05 mcg/kg/m. Chest x-ray is basically unremarkable. CBC is relatively normal. Repeat ABG after ventilator adjustments made showed a pO2 of 151 pCO2 of 42 pH of 7.33. Patient remained on 50% FiO2. Electrolytes and renal profile are normal. Patient was reevaluated today on 02/03/20, patient remains in the ICU, intubated and mechanically ventilated. She is on assist control rate of 16 tidal volume is 400 FiO2 is 35% PEEP is 5. ABG showed a pO2 of 112 pCO2 of 30 0 pH of 7.40. Chest x-ray is showing now what seems to be a right lower lobe pneumonia has recommended starting the patient on Zosyn. Patient remains on norepinephrine at 0.06 mcg/kg/m, she was seen by neurology and her EEG was abnormal hence she was started on Keppra. Electrolytes are normal bicarb is a bit low at 18. Renal profile is normal. Neurologically the patient remains unresponsive to any stimuli. EEG showed evidence of anoxic brain injury and generalized epileptiform discharges, patient is at high risk of developing seizures. Neurological status was discussed with the neurologist who actually discussed her condition with the . Clearly the patient sustained some severe anoxic brain injury. Reevaluated today on , patient remains in the ICU, intubated and mechanically ventilated. She is presently on assist control rate of 16 tidal volume is 400 FiO2 35% PEEP of 5. ABG showed a pO2 of 98 pCO2 of 34 pH of 7.41. Repeat EEG showed worsening picture of encephalopathy and brain activity. Patient remains on Zosyn empirically for presumptive aspiration pneumonia. ABG today showed a pO2 of 98 pCO2 of 34 pH of 7.41. Chest x-ray showed slight improvement in her right lower lobe infiltrate/atelectasis. Neurologically, the patient is about the same, she is not showing any signs of recovery. Apparently the was approached by the neurologist on the case, and he is planning to consider comfort care measures in the next couple of days. Basic metabolic profile today is normal. Renal profile is normal. CBC is also relatively normal. Patient was reevaluated today on 02/05/20, patient remains in the ICU, intubated and mechanically ventilated. Ventilator settings are assist control rate of 16 tidal volume is 400 FiO2 is 35% and PEEP of 5. ABG showed a pO2 of 99 pCO2 of 35 pH of 7.43. Chest x-ray continues to show bilateral bibasilar opacities, consistent with airspace disease and pleural effusion. Patient is on Zosyn for presumptive aspiration pneumonia. CBC today is relatively normal. Basic metabolic profile is normal. Neurologically, the patient is not doing great, she is basically about the same, and obviously she sustained a significant brain injury from her anoxic presentation. EEG continues to remain consistent with toxic metabolic encephalopathy. Yesterday I had a chance to address her condition with her , and he seems to be inclined to consider comfort care measures and terminal weaning on Saturday. Objective - Vital Signs Vital signs: Vital Signs Temp 99.6 F 02/05/20 12:00 Pulse 84 02/05/20 12:00 Resp 16 02/05/20 12:00 BP 100/60 02/04/20 21:00 Pulse Ox 98 02/05/20 12:00 Intake & Output 02/04/20 02/05/20 02/05/20 18:59 06:59 18:59 Intake Total 2726 2526 1504 Output Total 1220 1355 987 Balance 1506 1171 517 Weight 66 kg 67 kg Intake: IV 1960 1760 1080 Lacosamide IV 200 mg In 50 100 50 Sodium Chloride 0.9% 50 ml @ 100 mls/hr IVPB ONCE [facility] Rx#:[id number] Piperacillin-Tazobactam 3 200 100 .375 gm In Sodium Chloride 0.9% 100 ml @ 25 mls/hr IVPB Q8HR [facility] Rx# :[id number] Sodium Chloride 0.9% 1, 1560 1560 780 000 ml @ 130 mls/hr IV . Q7H42M [facility] Rx#:[id number] Thiamine 100 mg In Sodium 50 50 Chloride 0.9% 50 ml @ 100 mls/hr IVPB DAILY [facility] Rx#:[id number] levETIRAcetam IV 1,000 mg 100 100 100 In Saline 1 100ml.bag @ 400 mls/hr IVPB Q12HR [facility] Rx#:[id number] Oral 90 Tube Feeding 676 676 364 Other 90 60 Output: Urine 1220 1355 987 Other: Voiding Method Indwelling Catheter Indwelling Catheter Indwelling Catheter ABP, PAP, CO, CI - Last Documented Arterial Blood Pressure 131/67 - Exam Physical Exam: Revealed a 50-year-old female unresponsive to any stimuli, on mechanical ventilation. Head: Atraumatic, normocephalic. Endotracheal tube and orogastric tubes are intact. HEENT:[Neck is supple.] [No neck masses.] [No thyromegaly.] [No JVD.] No icterus. Moist mucous membranes. Chest: [Clear throughout, no crackles, no rhonchi, no wheezes.] Cardiac Exam: [Normal S1 and S2, no S3 gallop, no murmur.] Abdomen: [Soft, nontender, no megaly, no rebound, no guarding, normal bowel sounds.] Extremities: [No clubbing, no edema, no cyanosis.] Neurological Exam: Patient is comatose with Glascow coma score of 3. Not responding to any verbal or painful stimuli. Pupils are round, bilaterally reactive to light positive corneal reflex. No facial weakness is noted. Plantars are mute bilaterally. Psychiatric could not be assessed. Musculoskeletal could not be assessed - Labs CBC & Chem 7: 02/05/20 06:10 02/05/20 06:10 Labs: Abnormal Lab Results - Last 24 Hours (Table) 02/05/20 02/05/20 02/05/20 Range/Units 06:10 06:10 07:11 RBC 2.99 L (3.80-5.40) m/uL Hgb 9.5 L (11.4-16.0) gm/dL Hct 29.0 L (34.0-46.0) % ABG O2 Saturation 98.8 H (94-97) % Sodium 135 L (137-145) mmol/L Chloride 110 H (98-107) mmol/L BUN 6 L (7-17) mg/dL Creatinine 0.45 L (0.52-1.04) mg/dL Glucose 105 H (74-99) mg/dL Calcium 7.5 L (8.4-10.2) mg/dL Assessment and Plan Assessment: Impression: Acute hypoxic and was failure secondary to multiple drugs overdose/suicidal intent. Polysubstance abuse. Severe cerebral anoxic brain injury due to suicidal attempts. History of fibromyalgia. Lower seizure threshold secondary to anoxic brain injury. And abnormal EEG. History of depression and posttraumatic stress disorder. Tobacco dependence syndrome. Recommendation: Continue ventilatory support. Continue Keppra. Continue Nutritional support. Patient is on enteral feeding. IV fluids. GI and DVT prophylaxis. Discussed her condition with the yesterday, and he is very well aware that the patient has severe prognosis, and he is inclined to consider comfort care measures and terminal weaning in the next 24 hours. Patient is critically ill, critical care time is 31 minutes. Time with Patient: Greater than 30
--- NOTE | 2020-02-05 14:50 | P.PN ---
Subjective 50-year-old female with a known history of fibromyalgia, GERD, anxiety/depression/PTSD and currently everyday smoker was initially brought to the hospital by EMS after being found unresponsive with a needle in her left antecubital space. Patient was found unconscious by her . Apparently patient has access to medications that are used in the veterinary clinic. Patient was unresponsive somnolent with bradycardia and labored breathing. Patient was given 2 mg of Narcan without any response by EMS personnel. Patient was transported to ER where she was intubated. Chest x-ray showed no acute process. No evident complication status post tube placement. CT head. Stable brain CT. No acute abnormality noted. EKG showed sinus bradycardia with heart rate 51 2D echocardiogram showed ejection fraction 35 to 40% with no significant valve abnormalities noted. Laboratory data showed sodium 136, potassium 4.1 BUN 11 creatinine 0.91 Calcium 8.1 Urinalysis showed nitrite positive and WBCs 1 UDS is positive for opiates, barbiturates, benzodiazepines, marijuana. ABG showed pH of 7.28, PCO2 42 and PO2 greater than 100 on admission. On 02/04/2020 Patient is currently on mechanical Ventilator with assist control. Patient had a repeat EEG today. Initial EEG showed evidence of anoxic brain injury and generalized epileptiform discharges. Neurologically patient did not make any improvement. Patient is being continued on antibiotics in the form of Zosyn for possible aspiration pneumonia. Pulmonary neurology is on board. 02/05/2020 Patient can use to be on ventilator support patient appears to have significant anoxic brain injury and EGD showing significant encephalopathy. Patient is on antiseizure medications patient still has some brain stem reflexes. her prognosis is extremely poor in spite of aggressive treatment patient remains on ventilatory support and not expected to have a reasonable neurological recovery because of this reason neurologist discussed with the family regarding overall goals of care and plan is to make comfort care and terminal wean tomorrow. Patient remains on pressor support at this time. review of systems: Unable to often and this time due to her clinical condition All inpatient medications were reviewed and appropriate changes in these medications as dictated in the interval history and assessment and plan. Objective - Vital Signs Vital signs: Vital Signs Temp 99.6 F 02/05/20 12:00 Pulse 84 02/05/20 12:00 Resp 16 02/05/20 12:00 BP 100/60 02/04/20 21:00 Pulse Ox 98 02/05/20 12:00 Intake & Output 02/04/20 02/05/20 02/05/20 18:59 06:59 18:59 Intake Total 2726 2526 1504 Output Total 1220 1355 987 Balance 1506 1171 517 Weight 66 kg 67 kg Intake: IV 1960 1760 1080 Lacosamide IV 200 mg In 50 100 50 Sodium Chloride 0.9% 50 ml @ 100 mls/hr IVPB ONCE [facility] Rx#:[id number] Piperacillin-Tazobactam 3 200 100 .375 gm In Sodium Chloride 0.9% 100 ml @ 25 mls/hr IVPB Q8HR [facility] Rx# :[id number] Sodium Chloride 0.9% 1, 1560 1560 780 000 ml @ 130 mls/hr IV . Q7H42M [facility] Rx#:[id number] Thiamine 100 mg In Sodium 50 50 Chloride 0.9% 50 ml @ 100 mls/hr IVPB DAILY [facility] Rx#:[id number] levETIRAcetam IV 1,000 mg 100 100 100 In Saline 1 100ml.bag @ 400 mls/hr IVPB Q12HR [facility] Rx#:[id number] Oral 90 Tube Feeding 676 676 364 Other 90 60 Output: Urine 1220 1355 987 Other: Voiding Method Indwelling Catheter Indwelling Catheter Indwelling Catheter ABP, PAP, CO, CI - Last Documented Arterial Blood Pressure 131/67 - Exam PHYSICAL EXAMINATION: GENERAL: patient is intubated unresponsive not on any sedation at this time. HEENT: pupils are reactive to light and does have corneal reflexNo scleral icterus. No conjunctival pallor. Normocephalic, atraumatic. No pharyngeal erythema. No thyromegaly. CARDIOVASCULAR: S1 and S2 present. No murmurs, rubs, or gallops. PULMONARY: Chest is clear to auscultation, no wheezing or crackles. ABDOMEN: Soft, MUSCULOSKELETAL: No joint swelling or deformity. EXTREMITIES: No cyanosis, clubbing, or pedal edema. NEUROLOGICAL: does have some brainstem reflexes, is breathing over the ventilator does have gag reflex SKIN: No rashes. - Labs CBC & Chem 7: 02/05/20 06:10 02/05/20 06:10 Labs: Abnormal Lab Results - Last 24 Hours (Table) 02/05/20 02/05/20 02/05/20 Range/Units 06:10 06:10 07:11 RBC 2.99 L (3.80-5.40) m/uL Hgb 9.5 L (11.4-16.0) gm/dL Hct 29.0 L (34.0-46.0) % ABG O2 Saturation 98.8 H (94-97) % Sodium 135 L (137-145) mmol/L Chloride 110 H (98-107) mmol/L BUN 6 L (7-17) mg/dL Creatinine 0.45 L (0.52-1.04) mg/dL Glucose 105 H (74-99) mg/dL Calcium 7.5 L (8.4-10.2) mg/dL Assessment and Plan Plan: Assessment and Plan Assessment: Acute hypoxic respiratory failure secondary to multidrug overdose/ suicide attempt Severe anoxic brain injury secondary to above Polysubstance use High risk for seizures1 patient is on prophylactic seizure medications. -Severe metabolic and toxic encephalopathy anxiety/depression/PTSD DVT prophylaxis Heparin subcu Plan: Patient is currently on mechanical ventilator. Patient is not making progress neurologically. neurology and pulmonology following the patient. Continued on nutritional support and Keppra for seizure prophylaxis. Continued on IV hydration. Due to poor prognosis, comfort care from tomorrow with terminal wean.
[2020-02-05] MEDS ORDERED: ATROPINE OPHTH SOLN 1% 5ML BTL SUBLINGUAL PRN (18:03)
[2020-02-05] MEDS: SCOPOLAMINE 1.5MG/72HR PATCH TRANSDERM SCH (18:48)
--- NOTE | 2020-02-05 20:06 | P.PN ---
Subjective Progress Note Date: 02/05/20 Patient was seen at bedside and and the patient condition continues to be the same. She continues to be nonresponsive, not following commands. The plan is that the patient's will make her comfort care tomorrow because of lack of improvement. Objective - Vital Signs Vital signs: Vital Signs Temp 100.2 F H 02/05/20 16:00 Pulse 92 02/05/20 19:00 Resp 17 02/05/20 19:00 BP 100/60 02/04/20 21:00 Pulse Ox 100 02/05/20 19:00 Intake & Output 02/05/20 02/05/20 02/06/20 06:59 18:59 06:59 Intake Total 2526 2404 Output Total 1355 2137 Balance 1171 267 Weight 67 kg Intake: IV 1760 1690 Lacosamide IV 200 mg In 100 50 Sodium Chloride 0.9% 50 ml @ 100 mls/hr IVPB [facility] Rx#:[id number] Piperacillin-Tazobactam 3 100 .375 gm In Sodium Chloride 0.9% 100 ml @ 25 mls/hr IVPB Q8HR [facility] Rx# :[id number] Sodium Chloride 0.9% 1, 1560 1390 000 ml @ 30 mls/hr IV . Q24H [facility] Rx#:[id number] Thiamine 100 mg In Sodium 50 Chloride 0.9% 50 ml @ 100 mls/hr IVPB DAILY [facility] Rx#:[id number] levETIRAcetam IV 1,000 mg 100 100 In Saline 1 100ml.bag @ 400 mls/hr IVPB Q12HR [facility] Rx#:[id number] Tube Feeding 676 624 Other 90 90 Output: Urine 1355 2137 Other: Voiding Method Indwelling Catheter Indwelling Catheter ABP, PAP, CO, CI - Last Documented Arterial Blood Pressure 143/73 - Exam GENERAL: The patient is lying in bed and does not seem in acute distress. CHEST: The heart rate is regular rate rhythm. No murmurs to auscultation. . LUNG: Intubated and on ventilator. Clear to auscultation bilaterally no wheezing noted throughout. Not labored breathing. NEUROLOGICAL: Limited because of patient condition. Higher mental function: Comatose with GCS 3. The patient is not opening eyes and not following commands. Cranial nerves: Eyes are closed and had to manually open them. Primary gaze are center bilaterally. The pupils are round, right is 6mm and left is 2-3 mm. Right is reactive to light while left is sluggishly reactive to light. +ve cornea reflex. No facial weakness noted bilaterally. Breathing over the vent. +ve gag reflex. Motor: Gait is defered. The strength is unable to assess because of condition. No spontaneous movement. Flaccid in bilateral upper extremities. Normal tone in lower extremities. No spontaenous movement seen. Cerebellum: Unable to assess. Sensation: Unable to assess but to painful stimuli does not grimace face. Reflexes (right/left): 1+ throughout. Plantars are mute bilaterally. - Labs CBC & Chem 7: 02/05/20 06:10 02/05/20 06:10 Labs: Abnormal Lab Results - Last 24 Hours (Table) 02/05/20 02/05/20 02/05/20 Range/Units 06:10 06:10 07:11 RBC 2.99 L (3.80-5.40) m/uL Hgb 9.5 L (11.4-16.0) gm/dL Hct 29.0 L (34.0-46.0) % ABG O2 Saturation 98.8 H (94-97) % Sodium 135 L (137-145) mmol/L Chloride 110 H (98-107) mmol/L BUN 6 L (7-17) mg/dL Creatinine 0.45 L (0.52-1.04) mg/dL Glucose 105 H (74-99) mg/dL Calcium 7.5 L (8.4-10.2) mg/dL Assessment and Plan Assessment: This is a 50-year-old woman who presented that to the emergency department on 02/01/2020 after being found unresponsive with a suicidal notes. 1. Cerebal anoxic brain injury due to suicidal attempt (only has some brainstem reflex)--no improvement 2 Non-convulsive status due to above 3. Encephalopathy due to above 4. Hypotensive shock likely due to #1--resolved 5. Acute Suicidal attempt 6. Polysubstance use 7. Acute respiratory failure secondary due to suicidal attempt from drug use. Plan: * EEG(02/02/20): Showed burst/suppression due to anoxic brain injury. There is severe encephalopathy likely due to toxic-metabolic effect. The generalized epileptiform discharges increases the risk of seizures. No electrographic seizure is seen. * EEG (02/03/20) Continue to showed burst/suppression likely due to anoxic brain injury. There is severe encephalopathy likely due to toxic-metabolic effect. The generalized epileptiform discharges increases the risk of seizures. No electrographic seizure is seen. The burst suppression seemed worse compared to 01/02/20 EEG study. * Prolonge EEG (1 hour and 6 minutes) (02/04/2020): EEG was concerning for nonconvulsive status epilepticus. The generalized epileptiform discharges increases risk of seizure. There is severe encephalopathy. The anterior to posterior lag with a triphasic morphology is likely due to toxic metabolic encephalopathy. * As a result of the current EEG I loaded the patient the with the Vimpat 200 mg once and started on Vimpat 100 mg twice a day. Continue Keppra 1.5 g twice a day. * 2-D echo: There is moderate global hypokinesis of left ventricle. Ejection fr action of the 35-40%. * Continue thiamine 100 mg daily IV. * Patient has not been having any improvement in her neurological condition. She suffered extensive brain injury as a result of her suicidal attempt. Prognosis is poor. * On 02/05/20 I notified the patient's (who was at bedside) of the current findings of the EEG. I notified him that long-term EEG is needed which our facility does not have. He stated that he does not want the patient to be transferred and he was the patient to remain in this facility. He stated that he spoke with his son and are in agreement that on 02/06/2020 he was to make the patient comfort care. He does not want any further EEG's on her. I asked him how aggressive to be be for controlling seizures and he stated he wanted her to be pain-free in the meantime until 02/06/2020. The plan was discussed with the ICU team. Dr. Begum will be on service for Neurology on 02/06/2020 as well as 02/07/2020. Oscar Montes M.D. Neuro-hospitalist Time with Patient: Less than 30
[2020-02-06] MEDS: PIPERACILLIN-TAZOBACTAM 3.375 GM in SODIUM CHLORIDE 0.9% 100 ML IVPB SCH ×4 (00:03→23:36)
[2020-02-06] MEDS: HEPARIN SODIUM,PORCINE 5,000 UNIT/ML 1 ML VIAL SQ SCH ×4 (00:03→23:37)
[2020-02-06] MEDS: SODIUM CHLORIDE 0.9% 1,000 ML IV SCH ×2 (00:03→23:37)
[2020-02-06] MEDS: NOREPINEPHRINE 32 MG in SODIUM CHLORIDE 0.9% 218 ML IV SCH (00:04)
[2020-02-06 04:08] LABS: Basophils % (A) 1 %; Eosinophils # (A) 0.3 k/uL (0-0.7); Eosinophils % (A) 3 %; HCT 29.9 % (34.0-46.0); HGB 9.7 gm/dL (11.4-16.0); Lymphocytes # (A) 1.7 k/uL (1.0-4.8); Lymphocytes % (A) 21 %; MCH 31.2 pg (25.0-35.0); MCHC 32.5 g/dL (31.0-37.0); Mean Platelet Volume 7.2; Monocytes # (A) 0.8 k/uL (0-1.0); Monocytes % (A) 10 %; Neutrophils # (A) 5.2 k/uL (1.3-7.7); Neutrophils % (A) 64 %; Platelet Count 267 k/uL (150-450); RBC 3.11 m/uL (3.80-5.40); RDW 13.8 % (11.5-15.5); WBC 8.2 k/uL (3.8-10.6)
[2020-02-06 04:33] LABS: African American GFR (CKD) >90 (>60 ml/min/1.73 sqM); Anion Gap 3 mmol/L; Blood Urea Nitrogen 7 mg/dL (7-17); Calcium 8.1 mg/dL (8.4-10.2); Carbon Dioxide 29 mmol/L (22-30); Chloride 105 mmol/L (98-107); Glucose 116 mg/dL (74-99); Non-African American GFR(CKD) >90 (>60 ml/min/1.73 sqM); Potassium 3.7 mmol/L (3.5-5.1); Sodium 137 mmol/L (137-145)
[2020-02-06] MEDS ORDERED: Potassium Replacement Protocol 1 EACH MISC MISCELLANE PRN (04:59)
[2020-02-06] MEDS ORDERED: POTASSIUM BICARBONATE/CIT AC 20 MEQ TABLET.EFF NG-TUBE SCH (05:00)
--- NOTE | 2020-02-06 08:03 | XR ---
EXAMINATION TYPE: XR chest 1V portable DATE OF EXAM: 02/06/2020 CLINICAL HISTORY: ICU management . TECHNIQUE: Portable semiupright view of the chest. COMPARISON: 02/05/2020 chest radiograph FINDINGS: Endotracheal tube distal tip the level of the clavicular heads. Right subclavian central ve nous catheter distal tip over the distal SVC. The proximal portion of the right subclavian catheter a ppears folded over and kinked. The enteric tube distal tip and side-port overlie the mid esophagus. C ardiomediastinal silhouette normal. Redemonstrated small bilateral pleural effusions and bibasilar ai rspace opacities. Mildly improved aeration of the right lung base versus 02/05/2020. No pneumothorax. IMPRESSION: 1. Enteric tube distal tip and side-port overlie the mid esophagus. Recommend approximately 18-20 cm of advancement of the enteric tube. 2. Right subclavian central venous catheter proximal portion appears folded over and kinked. 3. Persistent small bilateral pleural effusions and bibasilar airspace opacities. Mildly improved aer ation of the right lung base versus 02/05/2020. Dr. Jaquelin Mehta discussed findings with Rae MORRIS via the phone on 02/06/2020 at 7:58 AM, and resu lts were acknowledged.
[2020-02-06 09:03] LABS: ABG Base Excess 5.2 mmol/L; ABG HCO3 29 mmol/L (21-25); ABG Oxygen Saturation 98.4 % (94-97); ABG PCO2 40 mmHg (35-45); ABG PH 7.47 (7.35-7.45); ABG PO2 81 mmHg (83-108); ABG TCO2 30 mmol/L (19-24)
[2020-02-06] MEDS: levETIRAcetam IV 1,500 MG in SALINE 1 100ML.BAG IVPB SCH ×2 (09:05→19:53)
[2020-02-06] MEDS: PANTOPRAZOLE 40 MG/10 ML VIAL IV SCH (09:05)
[2020-02-06] MEDS: CHLORHEXIDINE GLUCONATE 15 ML CUP MUCOUS MEM SCH ×2 (09:05→19:53)
[2020-02-06] MEDS: THIAMINE 100 MG in SODIUM CHLORIDE 0.9% 50 ML IVPB SCH (09:07)
--- NOTE | 2020-02-06 09:17 | XR ---
EXAMINATION TYPE: XR chest 1V portable DATE OF EXAM: 02/06/2020 CLINICAL HISTORY: ETT placement and NGT placement . TECHNIQUE: Portable frontal view of the chest. COMPARISON: 02/06/2020 at 6:03 AM chest radiograph FINDINGS: Interval advancement of enteric tube, coursing over the left upper quadrant of the abdomen over the projected stomach, with nonvisualization of the distal tip or side port. Redemonstrated rig ht subclavian central venous catheter, which is kinked at the proximal portion. Endotracheal tube dis araseli tip 1.8 cm from the gorge. Small right pleural effusion. No pneumothorax. IMPRESSION: 1. Interval advancement of enteric tube coursing over the projected area of the stomach, with nonvisu alization of the distal tip or side port. 2. Endotracheal tube distal tip 1.8 cm from the gorge.
--- NOTE | 2020-02-06 10:57 | P.PN ---
Progress Note - Text Progress Note Date: 02/06/20 I was notified by patient nurse via [employer] at 8:05AM today that patient is awake and following commands. And the patient's is still leaning toward comfort care measures. He is afraid that her mental capacity is drastically effected. His telephone number was give to me to contact him. I attempted to contact him multiple times and at different occasions but goes directly to voice message then toward end of my attempts my number is blocked. RECOMMENDATION: 1. As a result of drastic improvement, I recommend to hold off on comfort care measures from my perspective. 2. Because of drastic improvement reported, I cannot assess the impact of her cognitive effect or to the extent of her future improvement at this time. 3. If patient's still wants to speak with someone then I am more than willing to do it. If he comes to the hospital, then nurse can call me and I can speak with him directly. 4. Recommend Psychiatry consultation once she is more awake because of suicidal attempt. 5. We need to get a better understanding from the patient of this suicidal attempt? 6. Dr. Begum is on service this weekend from Neurology team and will defer any further work-up to her. Dr. Oscra Montes Neuro-Hospitalist
[2020-02-06] MEDS: LACOSAMIDE IV 100 MG in SODIUM CHLORIDE 0.9% 50 ML IVPB SCH ×2 (11:24→20:33)
[2020-02-06 11:49] LABS: Glucose,Whole Blood 130 mg/dL (75-99)
--- NOTE | 2020-02-06 12:28 | P.PN ---
Subjective Progress Note Date: 02/06/20 Principal diagnosis: Acute hypoxic respiratory failure secondary to overdose This is a 50-year-old female with history of fibromyalgia, patient was found unresponsive by her with a needle in her antecubital space. Supposedly the patient had a suicidal note her and she may have used some unknown medications, the believe it's possibly some medication used to euthanize dogs. Patient was brought into the ER by EMS, and she was unresponsive upon presentation, bradycardic and she had labored breathing. Received 2 mg of Narcan, and there was no response. Patient was admitted to the ICU on mechanical ventilation, and I was asked to see her on consultation. Apparently poison control was notified about her presentation, and mostly recommended supportive care measures only. Her drug screen came back positive for opiates, benzodiazepines, and marijuana. Rest of the drug screen was basically unremarkable. Patient is not in the ICU, and I saw on consultation, she is on mechanical ventilation, and her ventilator settings are assist control rate of 14 tidal volume is 400 FiO2 50% PEEP of 5. Her ABG showed a pO2 of 113 pCO2 of 38 pH of 7.9. She is on IV fluid in the form of 0.9 normal saline at 1 40 mL per hour and she is also on norepinephrine at 0.05 mcg/kg/m. Chest x-ray is basically unremarkable. CBC is relatively normal. Repeat ABG after ventilator adjustments made showed a pO2 of 151 pCO2 of 42 pH of 7.33. Patient remained on 50% FiO2. Electrolytes and renal profile are normal. Patient was reevaluated today on 02/03/20, patient remains in the ICU, intubated and mechanically ventilated. She is on assist control rate of 16 tidal volume is 400 FiO2 is 35% PEEP is 5. ABG showed a pO2 of 112 pCO2 of 30 0 pH of 7.40. Chest x-ray is showing now what seems to be a right lower lobe pneumonia has recommended starting the patient on Zosyn. Patient remains on norepinephrine at 0.06 mcg/kg/m, she was seen by neurology and her EEG was abnormal hence she was started on Keppra. Electrolytes are normal bicarb is a bit low at 18. Renal profile is normal. Neurologically the patient remains unresponsive to any stimuli. EEG showed evidence of anoxic brain injury and generalized epileptiform discharges, patient is at high risk of developing seizures. Neurological status was discussed with the neurologist who actually discussed her condition with the . Clearly the patient sustained some severe anoxic brain injury. Reevaluated today on , patient remains in the ICU, intubated and mechanically ventilated. She is presently on assist control rate of 16 tidal volume is 400 FiO2 35% PEEP of 5. ABG showed a pO2 of 98 pCO2 of 34 pH of 7.41. Repeat EEG showed worsening picture of encephalopathy and brain activity. Patient remains on Zosyn empirically for presumptive aspiration pneumonia. ABG today showed a pO2 of 98 pCO2 of 34 pH of 7.41. Chest x-ray showed slight improvement in her right lower lobe infiltrate/atelectasis. Neurologically, the patient is about the same, she is not showing any signs of recovery. Apparently the was approached by the neurologist on the case, and he is planning to consider comfort care measures in the next couple of days. Basic metabolic profile today is normal. Renal profile is normal. CBC is also relatively normal. Patient was reevaluated today on 02/05/20, patient remains in the ICU, intubated and mechanically ventilated. Ventilator settings are assist control rate of 16 tidal volume is 400 FiO2 is 35% and PEEP of 5. ABG showed a pO2 of 99 pCO2 of 35 pH of 7.43. Chest x-ray continues to show bilateral bibasilar opacities, consistent with airspace disease and pleural effusion. Patient is on Zosyn for presumptive aspiration pneumonia. CBC today is relatively normal. Basic metabolic profile is normal. Neurologically, the patient is not doing great, she is basically about the same, and obviously she sustained a significant brain injury from her anoxic presentation. EEG continues to remain consistent with toxic metabolic encephalopathy. Yesterday I had a chance to address her condition with her , and he seems to be inclined to consider comfort care measures and terminal weaning on Saturday. Reevaluated today on 02/06/20, patient remains in the ICU, intubated and mechanically ventilated. Patient has not received any sedatives or narcotics since admission, patient woke up with a sternal rub, she was noted to follow simple instructions, she was also noted to have upward deviation of her eyes, not maintaining any visual contact. But was responding to verbal stimuli, wiggling toes, squeezing hands, sticking out her tongue swell requested. This is a dramatic change in her neurological status and admission. Patient was supposed to have comfort care measures today, however considering the neurological improvement, maybe it is best to hold on comfort care measures, and possibly have the urologist reevaluate the patient, and discussed her condition with family regarding her overall neurological status. Patient is obviously not quite ready to be extubated, she has apparently lots of secretions, and requiring suctioning. Patient is not maintaining any eye contact, and my concern that if extubated the right now, patient will not be able to clear her secretions on her own, and may end up developing worsening pulmonary status. At any rate I will recommend that we keep her on mechanical ventilation unless the requests comfort care measures and not to be reintubated if extubated then we could proceed that way. The neurologist is trying to contact the regarding her neurological status at this point. At any rate the patient is now on assist control mode of mechanical ventilation with rate of 16 tidal volume is 400 FiO2 is 35% and PEEP is 5. Chest x-ray showed nasogastric tube to be high in the esophagus, and this was advanced. Endotracheal tube was also advanced to above the gorge. ABG today showed a pO2 of 81 pCO2 of 40 pH of 7.47. CBC is relatively normal. Electrolytes and renal profile are normal. Chest x-ray is showing significant improvement in her right lower lobe pn eumonia. Objective - Vital Signs Vital signs: Vital Signs Temp 99.0 F 02/06/20 12:00 Pulse 84 02/06/20 12:00 Resp 16 02/06/20 12:00 BP 109/61 02/06/20 09:00 Pulse Ox 95 02/06/20 12:00 Intake & Output 02/05/20 02/06/20 02/06/20 18:59 06:59 18:59 Intake Total 2404 1174 670 Output Total 2137 1800 1050 Balance 781 -216 380 Weight 70.5 kg Intake: IV 1690 460 400 Lacosamide IV 200 mg In 50 Sodium Chloride 0.9% 50 ml @ 100 mls/hr IVPB ONCE [facility] Rx#:[id number] Piperacillin-Tazobactam 3 100 100 100 .375 gm In Sodium Chloride 0.9% 100 ml @ 25 mls/hr IVPB Q8HR [facility] Rx# :[id number] Sodium Chloride 0.9% 1, 1390 360 150 000 ml @ 30 mls/hr IV . Q24H [facility] Rx#:[id number] Thiamine 100 mg In Sodium 50 50 Chloride 0.9% 50 ml @ 100 mls/hr IVPB DAILY [facility] Rx#:[id number] levETIRAcetam IV 1,000 mg 100 In Saline 1 100ml.bag @ 400 mls/hr IVPB Q12HR [facility] Rx#:[id number] levETIRAcetam IV 1,500 mg 100 In Saline 1 100ml.bag @ 400 mls/hr IVPB Q12HR [facility] Rx#:[id number] Tube Feeding 624 624 210 Other 90 90 60 Output: Urine 2137 1800 1050 Other: Voiding Method Indwelling Catheter Indwelling Catheter ABP, PAP, CO, CI - Last Documented Arterial Blood Pressure 112/67 - Exam Physical Exam: Revealed a 50-year-old female , arousable with a full stimuli, and followed simple instructions. Head: Atraumatic, normocephalic. Endotracheal tube and orogastric tubes are intact. HEENT:[Neck is supple.] [No neck masses.] [No thyromegaly.] [No JVD.] No icterus. Moist mucous membranes. Chest: [Managed breath sounds at the bases no rhonchi or wheezes. Symmetrical chest expansion Cardiac Exam: [Normal S1 and S2, no S3 gallop, no murmur.] Abdomen: [Soft, nontender, no megaly, no rebound, no guarding, normal bowel sounds.] Extremities: [No clubbing, no edema, no cyanosis.] Neurological Exam: Patient is arousable to deep painful stimuli. And once aroused, patient was noted to follow simple instructions, unable to maintain eye contact, eyes seems to be deviated upwards. But able to squeeze hands, wiggling toes, and stick out tongue. When requested. Musculoskeletal : Moves all 4 extremities, no limitation in range of motion - Labs CBC & Chem 7: 02/06/20 04:00 02/06/20 04:00 Labs: Abnormal Lab Results - Last 24 Hours (Table) 02/06/20 02/06/20 02/06/20 Range/Units 04:00 04:00 09:01 RBC 3.11 L (3.80-5.40) m/uL Hgb 9.7 L (11.4-16.0) gm/dL Hct 29.9 L (34.0-46.0) % ABG pH 7.47 H (7.35-7.45) ABG pO2 81 L (83-108) mmHg ABG HCO3 29 H (21-25) mmol/L ABG Total CO2 30 H (19-24) mmol/L ABG O2 Saturation 98.4 H (94-97) % Creatinine 0.50 L (0.52-1.04) mg/dL Glucose 116 H (74-99) mg/dL POC Glucose (mg/dL) (75-99) mg/dL Calcium 8.1 L (8.4-10.2) mg/dL 02/06/20 Range/Units 11:48 RBC (3.80-5.40) m/uL Hgb (11.4-16.0) gm/dL Hct (34.0-46.0) % ABG pH (7.35-7.45) ABG pO2 (83-108) mmHg ABG HCO3 (21-25) mmol/L ABG Total CO2 (19-24) mmol/L ABG O2 Saturation (94-97) % Creatinine (0.52-1.04) mg/dL Glucose (74-99) mg/dL POC Glucose (mg/dL) 130 H (75-99) mg/dL Calcium (8.4-10.2) mg/dL Assessment and Plan Assessment: Impression: Acute hypoxic and was failure secondary to multiple drugs overdose/suicidal intent. Polysubstance abuse. Cerebral anoxic brain injury, clinically improving today compared to previous few days. History of fibromyalgia. Lower seizure threshold secondary to anoxic brain injury. And abnormal EEG. History of depression and posttraumatic stress disorder. Tobacco dependence syndrome. Recommendation: Continue ventilatory support. Continue Keppra. Continue Nutritional support. Patient is on enteral feeding. IV fluids. GI and DVT prophylaxis. Neurology was updated on her condition, may have to hold on comfort care measures and possibly consider weaning and extubation in the next 24 hours. Patient remains critically ill. Critical care time is 35 minutes Time with Patient: Greater than 30
--- NOTE | 2020-02-06 17:09 | P.PN ---
Subjective 50-year-old female with a known history of fibromyalgia, GERD, anxiety/depression/PTSD and currently everyday smoker was initially brought to the hospital by EMS after being found unresponsive with a needle in her left antecubital space. Patient was found unconscious by her . Apparently patient has access to medications that are used in the veterinary clinic. Patient was unresponsive somnolent with bradycardia and labored breathing. Patient was given 2 mg of Narcan without any response by EMS personnel. Patient was transported to ER where she was intubated. Chest x-ray showed no acute process. No evident complication status post tube placement. CT head. Stable brain CT. No acute abnormality noted. EKG showed sinus bradycardia with heart rate 51 2D echocardiogram showed ejection fraction 35 to 40% with no significant valve abnormalities noted. Laboratory data showed sodium 136, potassium 4.1 BUN 11 creatinine 0.91 Calcium 8.1 Urinalysis showed nitrite positive and WBCs 1 UDS is positive for opiates, barbiturates, benzodiazepines, marijuana. ABG showed pH of 7.28, PCO2 42 and PO2 greater than 100 on admission. On 02/04/2020 Patient is currently on mechanical Ventilator with assist control. Patient had a repeat EEG today. Initial EEG showed evidence of anoxic brain injury and generalized epileptiform discharges. Neurologically patient did not make any improvement. Patient is being continued on antibiotics in the form of Zosyn for possible aspiration pneumonia. Pulmonary neurology is on board. 02/05/2020 Patient can use to be on ventilator support patient appears to have significant anoxic brain injury and EGD showing significant encephalopathy. Patient is on antiseizure medications patient still has some brain stem reflexes. her prognosis is extremely poor in spite of aggressive treatment patient remains on ventilatory support and not expected to have a reasonable neurological recovery because of this reason neurologist discussed with the family regarding overall goals of care and plan is to make comfort care and terminal wean tomorrow. Patient remains on pressor support at this time. 02/06/2020 Patient actually woke up with significant improvement go in Edvin Coma Scale today. Patient always had brainstem reflexes but patient is arousable today. Since patient is not a recent rising with the ventilator patient was started on sedation today patient will undergo weaning trials tomorrow. review of systems: Unable to often and this time due to her clinical condition All inpatient medications were reviewed and appropriate changes in these medications as dictated in the interval history and assessment and plan. Objective - Vital Signs Vital signs: Vital Signs Temp 98.3 F 02/06/20 16:00 Pulse 79 02/06/20 16:00 Resp 18 02/06/20 16:00 BP 109/61 02/06/20 09:00 Pulse Ox 99 02/06/20 16:00 Intake & Output 02/05/20 02/06/20 02/06/20 18:59 06:59 18:59 Intake Total 2404 1174 1058.623 Output Total 2137 1800 1725 Balance 605 -099 -666.377 Weight 70.5 kg Intake: IV 1690 460 520 Lacosamide IV 200 mg In 50 Sodium Chloride 0.9% 50 ml @ 100 mls/hr IVPB ONCE [facility] Rx#:[id number] Piperacillin-Tazobactam 3 100 100 100 .375 gm In Sodium Chloride 0.9% 100 ml @ 25 mls/hr IVPB Q8HR [facility] Rx# :[id number] Sodium Chloride 0.9% 1, 1390 360 270 000 ml @ 30 mls/hr IV . Q24H [facility] Rx#:[id number] Thiamine 100 mg In Sodium 50 50 Chloride 0.9% 50 ml @ 100 mls/hr IVPB DAILY [facility] Rx#:[id number] levETIRAcetam IV 1,000 mg 100 In Saline 1 100ml.bag @ 400 mls/hr IVPB Q12HR [facility] Rx#:[id number] levETIRAcetam IV 1,500 mg 100 In Saline 1 100ml.bag @ 400 mls/hr IVPB Q12HR [facility] Rx#:[id number] Intake, IV Titration 28.623 Amount propofoL 1,000 mg In 28.623 Empty Bag 1 bag @ Titrate IV .Q0M [facility] Rx#: [id number] Tube Feeding 624 624 420 Other 90 90 90 Output: Urine 2137 1800 1725 Other: Voiding Method Indwelling Catheter Indwelling Catheter Indwelling Catheter ABP, PAP, CO, CI - Last Documented Arterial Blood Pressure 114/66 - Exam PHYSICAL EXAMINATION: GENERAL: patient is intubated sedated HEENT: pupils are reactive to light and does have corneal reflexNo scleral icterus. No conjunctival pallor. Normocephalic, atraumatic. No pharyngeal erythema. No thyromegaly. CARDIOVASCULAR: S1 and S2 present. No murmurs, rubs, or gallops. PULMONARY: Chest is clear to auscultation, no wheezing or crackles. ABDOMEN: Soft, MUSCULOSKELETAL: No joint swelling or deformity. EXTREMITIES: No cyanosis, clubbing, or pedal edema. NEUROLOGICAL: does have some brainstem reflexes, is breathing over the ventilator does have gag reflex SKIN: No rashes. - Labs CBC & Chem 7: 02/06/20 04:00 02/06/20 04:00 Labs: Abnormal Lab Results - Last 24 Hours (Table) 02/06/20 02/06/20 02/06/20 Range/Units 04:00 04:00 09:01 RBC 3.11 L (3.80-5.40) m/uL Hgb 9.7 L (11.4-16.0) gm/dL Hct 29.9 L (34.0-46.0) % ABG pH 7.47 H (7.35-7.45) ABG pO2 81 L (83-108) mmHg ABG HCO3 29 H (21-25) mmol/L ABG Total CO2 30 H (19-24) mmol/L ABG O2 Saturation 98.4 H (94-97) % Creatinine 0.50 L (0.52-1.04) mg/dL Glucose 116 H (74-99) mg/dL POC Glucose (mg/dL) (75-99) mg/dL Calcium 8.1 L (8.4-10.2) mg/dL 02/06/20 Range/Units 11:48 RBC (3.80-5.40) m/uL Hgb (11.4-16.0) gm/dL Hct (34.0-46.0) % ABG pH (7.35-7.45) ABG pO2 (83-108) mmHg ABG HCO3 (21-25) mmol/L ABG Total CO2 (19-24) mmol/L ABG O2 Saturation (94-97) % Creatinine (0.52-1.04) mg/dL Glucose (74-99) mg/dL POC Glucose (mg/dL) 130 H (75-99) mg/dL Calcium (8.4-10.2) mg/dL Assessment and Plan Plan: Assessment and Plan Assessment: Acute hypoxic respiratory failure secondary to multidrug overdose/ suicide attempt Severe anoxic brain injury secondary to above Polysubstance use High risk for seizures1 patient is on prophylactic seizure medications. -Severe metabolic and toxic encephalopathy anxiety/depression/PTSD DVT prophylaxis Heparin subcu Plan: Patient is currently on mechanical ventilator. patient was a week earlier today and patient is arousable patient will is on sedation now. Patient did have neurological recovery but may still have residual effects of anoxic brain injury including memory issues. Patient will be monitored. neurology and pulmonology following the patient. Continued on nutritional support and Keppra for seizure prophylaxis. Continued on IV hydration.
[2020-02-06 17:34] LABS: Glucose,Whole Blood 124 mg/dL (75-99)
[2020-02-06 23:45] LABS: Glucose,Whole Blood 125 mg/dL (75-99)
[2020-02-07] MEDS: NOREPINEPHRINE 32 MG in SODIUM CHLORIDE 0.9% 218 ML IV SCH (00:17)
[2020-02-07 04:16] LABS: Basophils # (A) 0.1 k/uL (0-0.2); Basophils % (A) 1 %; Eosinophils # (A) 0.3 k/uL (0-0.7); Eosinophils % (A) 4 %; HCT 27.8 % (34.0-46.0); HGB 8.9 gm/dL (11.4-16.0); Lymphocytes # (A) 1.9 k/uL (1.0-4.8); Lymphocytes % (A) 29 %; Monocytes # (A) 0.6 k/uL (0-1.0); Monocytes % (A) 9 %; Neutrophils # (A) 3.7 k/uL (1.3-7.7); Neutrophils % (A) 55 %; Platelet Count 262 k/uL (150-450); RBC 2.86 m/uL (3.80-5.40); RDW 13.8 % (11.5-15.5); WBC 6.8 k/uL (3.8-10.6)
[2020-02-07 04:45] LABS: ALT 39 U/L (4-34); AST 39 U/L (14-36); African American GFR (CKD) >90 (>60 ml/min/1.73 sqM); Albumin 2.5 g/dL (3.5-5.0); Alkaline Phosphatase 74 U/L (38-126); Anion Gap 1 mmol/L; Blood Urea Nitrogen 8 mg/dL (7-17); Calcium 8.3 mg/dL (8.4-10.2); Carbon Dioxide 33 mmol/L (22-30); Chloride 104 mmol/L (98-107); Glucose 117 mg/dL (74-99); Non-African American GFR(CKD) >90 (>60 ml/min/1.73 sqM); Potassium 3.8 mmol/L (3.5-5.1); Sodium 138 mmol/L (137-145); Total Bilirubin 0.3 mg/dL (0.2-1.3); Total Protein 4.9 g/dL (6.3-8.2)
[2020-02-07] MEDS ORDERED: POTASSIUM BICARBONATE/CIT AC 20 MEQ TABLET.EFF NG-TUBE SCH (05:00)
[2020-02-07 06:02] LABS: Glucose,Whole Blood 122 mg/dL (75-99)
[2020-02-07 07:18] LABS: ABG Base Excess 10.4 mmol/L; ABG HCO3 34 mmol/L (21-25); ABG Oxygen Saturation 99.1 % (94-97); ABG PCO2 47 mmHg (35-45); ABG PH 7.47 (7.35-7.45); ABG PO2 104 mmHg (83-108); ABG TCO2 36 mmol/L (19-24); Allen Test Performed? Yes
--- NOTE | 2020-02-07 07:22 | XR ---
EXAMINATION TYPE: XR chest 1V portable DATE OF EXAM: 02/07/2020 COMPARISON: 02/06/2020 HISTORY: SOB, Follow Up FINDINGS: Indwelling tubes and catheters are unchanged. Stable mild basilar infiltrates and/or atelectasis. Stable appearance of the cardio-mediastinal structures at this time. IMPRESSION: 1. Stable portable chest. Clinical correlation and follow up until resolution is recommended.
[2020-02-07] MEDS: PANTOPRAZOLE 40 MG/10 ML VIAL IV SCH (08:29)
[2020-02-07] MEDS: levETIRAcetam IV 1,500 MG in SALINE 1 100ML.BAG IVPB SCH ×2 (08:29→20:27)
[2020-02-07] MEDS: CHLORHEXIDINE GLUCONATE 15 ML CUP MUCOUS MEM SCH (08:29)
[2020-02-07] MEDS: HEPARIN SODIUM,PORCINE 5,000 UNIT/ML 1 ML VIAL SQ SCH ×3 (08:29→23:52)
[2020-02-07] MEDS: PIPERACILLIN-TAZOBACTAM 3.375 GM in SODIUM CHLORIDE 0.9% 100 ML IVPB SCH ×3 (08:29→23:51)
[2020-02-07] MEDS: THIAMINE 100 MG in SODIUM CHLORIDE 0.9% 50 ML IVPB SCH (08:45)
[2020-02-07 12:01] LABS: Glucose,Whole Blood 122 mg/dL (75-99)
[2020-02-07] MEDS: LACOSAMIDE IV 100 MG in SODIUM CHLORIDE 0.9% 50 ML IVPB SCH ×2 (12:24→21:07)
[2020-02-07 13:25] VITALS: BMI 27.0
--- NOTE | 2020-02-07 13:36 | P.PN ---
Subjective Progress Note Date: 02/07/20 Principal diagnosis: Acute hypoxic respiratory failure secondary to overdose This is a 50-year-old female with history of fibromyalgia, patient was found unresponsive by her with a needle in her antecubital space. Supposedly the patient had a suicidal note her and she may have used some unknown medications, the believe it's possibly some medication used to euthanize dogs. Patient was brought into the ER by EMS, and she was unresponsive upon presentation, bradycardic and she had labored breathing. Received 2 mg of Narcan, and there was no response. Patient was admitted to the ICU on mechanical ventilation, and I was asked to see her on consultation. Apparently poison control was notified about her presentation, and mostly recommended supportive care measures only. Her drug screen came back positive for opiates, benzodiazepines, and marijuana. Rest of the drug screen was basically unremarkable. Patient is not in the ICU, and I saw on consultation, she is on mechanical ventilation, and her ventilator settings are assist control rate of 14 tidal volume is 400 FiO2 50% PEEP of 5. Her ABG showed a pO2 of 113 pCO2 of 38 pH of 7.9. She is on IV fluid in the form of 0.9 normal saline at 1 40 mL per hour and she is also on norepinephrine at 0.05 mcg/kg/m. Chest x-ray is basically unremarkable. CBC is relatively normal. Repeat ABG after ventilator adjustments made showed a pO2 of 151 pCO2 of 42 pH of 7.33. Patient remained on 50% FiO2. Electrolytes and renal profile are normal. Patient was reevaluated today on 02/03/20, patient remains in the ICU, intubated and mechanically ventilated. She is on assist control rate of 16 tidal volume is 400 FiO2 is 35% PEEP is 5. ABG showed a pO2 of 112 pCO2 of 30 0 pH of 7.40. Chest x-ray is showing now what seems to be a right lower lobe pneumonia has recommended starting the patient on Zosyn. Patient remains on norepinephrine at 0.06 mcg/kg/m, she was seen by neurology and her EEG was abnormal hence she was started on Keppra. Electrolytes are normal bicarb is a bit low at 18. Renal profile is normal. Neurologically the patient remains unresponsive to any stimuli. EEG showed evidence of anoxic brain injury and generalized epileptiform discharges, patient is at high risk of developing seizures. Neurological status was discussed with the neurologist who actually discussed her condition with the . Clearly the patient sustained some severe anoxic brain injury. Reevaluated today on , patient remains in the ICU, intubated and mechanically ventilated. She is presently on assist control rate of 16 tidal volume is 400 FiO2 35% PEEP of 5. ABG showed a pO2 of 98 pCO2 of 34 pH of 7.41. Repeat EEG showed worsening picture of encephalopathy and brain activity. Patient remains on Zosyn empirically for presumptive aspiration pneumonia. ABG today showed a pO2 of 98 pCO2 of 34 pH of 7.41. Chest x-ray showed slight improvement in her right lower lobe infiltrate/atelectasis. Neurologically, the patient is about the same, she is not showing any signs of recovery. Apparently the was approached by the neurologist on the case, and he is planning to consider comfort care measures in the next couple of days. Basic metabolic profile today is normal. Renal profile is normal. CBC is also relatively normal. Patient was reevaluated today on 02/05/20, patient remains in the ICU, intubated and mechanically ventilated. Ventilator settings are assist control rate of 16 tidal volume is 400 FiO2 is 35% and PEEP of 5. ABG showed a pO2 of 99 pCO2 of 35 pH of 7.43. Chest x-ray continues to show bilateral bibasilar opacities, consistent with airspace disease and pleural effusion. Patient is on Zosyn for presumptive aspiration pneumonia. CBC today is relatively normal. Basic metabolic profile is normal. Neurologically, the patient is not doing great, she is basically about the same, and obviously she sustained a significant brain injury from her anoxic presentation. EEG continues to remain consistent with toxic metabolic encephalopathy. Yesterday I had a chance to address her condition with her , and he seems to be inclined to consider comfort care measures and terminal weaning on Saturday. Reevaluated today on 02/06/20, patient remains in the ICU, intubated and mechanically ventilated. Patient has not received any sedatives or narcotics since admission, patient woke up with a sternal rub, she was noted to follow simple instructions, she was also noted to have upward deviation of her eyes, not maintaining any visual contact. But was responding to verbal stimuli, wiggling toes, squeezing hands, sticking out her tongue swell requested. This is a dramatic change in her neurological status and admission. Patient was supposed to have comfort care measures today, however considering the neurological improvement, maybe it is best to hold on comfort care measures, and possibly have the urologist reevaluate the patient, and discussed her condition with family regarding her overall neurological status. Patient is obviously not quite ready to be extubated, she has apparently lots of secretions, and requiring suctioning. Patient is not maintaining any eye contact, and my concern that if extubated the right now, patient will not be able to clear her secretions on her own, and may end up developing worsening pulmonary status. At any rate I will recommend that we keep her on mechanical ventilation unless the requests comfort care measures and not to be reintubated if extubated then we could proceed that way. The neurologist is trying to contact the regarding her neurological status at this point. At any rate the patient is now on assist control mode of mechanical ventilation with rate of 16 tidal volume is 400 FiO2 is 35% and PEEP is 5. Chest x-ray showed nasogastric tube to be high in the esophagus, and this was advanced. Endotracheal tube was also advanced to above the gorge. ABG today showed a pO2 of 81 pCO2 of 40 pH of 7.47. CBC is relatively normal. Electrolytes and renal profile are normal. Chest x-ray is showing significant improvement in her right lower lobe pn eumonia. Patient was seen today on 02/07/20, remains in the ICU, intubated and mechanically ventilated. However the patient was noted to be awake, and following simple instructions, she is presently on propofol at 50 mcg/kg/m, her vent settings are assist control rate of 16 tidal volume is 400 FiO2 35% PEEP of 5. ABG showed a pO2 of 104 pCO2 47 pH of 7.47. After evaluating the patient, and reviewing her chest x-ray, reviewed her labs, I have recommended that the patient is taken off propofol, and I'll reassess the patient again, patient seemed to be fairly appropriate, follows simple instructions, and in no distress. Then I recommended a trial of pressure support of 8 and CPAP, and held her enteral feedings. Half an hour later, patient seems to be tolerating the pressure support and CPAP quite well, she had good tidal volumes on her own, and she had respiratory rate is about 18. Hence I recommended extubating the patient to a nasal cannula. Her basic metabolic profile today is normal. Her liver enzymes were noted to be relatively normal. CBC is relatively normal hemoglobin is 8.9, chest x-ray showed mild basilar infiltrates and/or atelectasis. Objective - Vital Signs Vital signs: Vital Signs Temp 98.7 F 02/07/20 12:00 Pulse 75 02/07/20 12:00 Resp 13 02/07/20 12:00 BP 109/61 02/06/20 09:00 Pulse Ox 97 02/07/20 12:00 Intake & Output 02/06/20 02/07/20 02/07/20 18:59 06:59 18:59 Intake Total 7984.562 1434.999 631.077 Output Total 1875 1855 785 Balance -604.155 -426.001 -153.923 Weight 69.3 kg 69.3 kg Intake: IV 580 460 530 Lacosamide IV 200 mg In 50 Sodium Chloride 0.9% 50 ml @ 100 mls/hr IVPB ONCE [facility] Rx#:[id number] Piperacillin-Tazobactam 3 100 100 100 .375 gm In Sodium Chloride 0.9% 100 ml @ 25 mls/hr IVPB Q8HR [facility] Rx# :[id number] Sodium Chloride 0.9% 1, 330 360 180 000 ml @ 30 mls/hr IV . Q24H [facility] Rx#:[id number] Thiamine 100 mg In Sodium 50 100 Chloride 0.9% 50 ml @ 100 mls/hr IVPB DAILY [facility] Rx#:[id number] levETIRAcetam IV 1,500 mg 100 100 In Saline 1 100ml.bag @ 400 mls/hr IVPB Q12HR [facility] Rx#:[id number] Intake, IV Titration 76.845 254.999 49.077 Amount propofoL 1,000 mg In 76.845 254.999 49.077 Empty Bag 1 bag @ Titrate IV .Q0M [facility] Rx#: [id number] Tube Feeding 524 624 52 Other 90 90 Output: Urine 1875 1855 785 Other: Voiding Method Indwelling Catheter Indwelling Catheter ABP, PAP, CO, CI - Last Documented Arterial Blood Pressure 132/66 - Exam Physical Exam: Revealed a 50-year-old female , on mechanical ventilation, followed all simple instructions and seemed to be appropriate off propofol. Head: Atraumatic, normocephalic. Endotracheal tube and orogastric tubes are intact. HEENT:[Neck is supple.] [No neck masses.] [No thyromegaly.] [No JVD.] No icterus. Moist mucous membranes. Chest: [Symmetrical chest expansion, clear breath sounds bilaterally. Cardiac Exam: [Normal S1 and S2, no S3 gallop, no murmur.] Abdomen: [Soft, nontender, no megaly, no rebound, no guarding, normal bowel sounds.] Extremities: [No clubbing, no edema, no cyanosis.] Neurological Exam: Patient is awake, appropriate, followed simple instructions fully. Musculoskeletal : Moves all 4 extremities, no limitation in range of motion - Labs CBC & Chem 7: 02/07/20 04:00 02/07/20 04:00 Labs: Abnormal Lab Results - Last 24 Hours (Table) 02/06/20 02/06/20 02/07/20 Range/Units 17:33 23:44 04:00 RBC 2.86 L (3.80-5.40) m/uL Hgb 8.9 L (11.4-16.0) gm/dL Hct 27.8 L (34.0-46.0) % ABG pH (7.35-7.45) ABG pCO2 (35-45) mmHg ABG HCO3 (21-25) mmol/L ABG Total CO2 (19-24) mmol/L ABG O2 Saturation (94-97) % Carbon Dioxide (22-30) mmol/L Glucose (74-99) mg/dL POC Glucose (mg/dL) 124 H 125 H (75-99) mg/dL Calcium (8.4-10.2) mg/dL AST (14-36) U/L ALT (4-34) U/L Total Protein (6.3-8.2) g/dL Albumin (3.5-5.0) g/dL 02/07/20 02/07/20 02/07/20 Range/Units 04:00 06:01 07:12 RBC (3.80-5.40) m/uL Hgb (11.4-16.0) gm/dL Hct (34.0-46.0) % ABG pH 7.47 H (7.35-7.45) ABG pCO2 47 H (35-45) mmHg ABG HCO3 34 H (21-25) mmol/L ABG Total CO2 36 H (19-24) mmol/L ABG O2 Saturation 99.1 H (94-97) % Carbon Dioxide 33 H (22-30) mmol/L Glucose 117 H (74-99) mg/dL POC Glucose (mg/dL) 122 H (75-99) mg/dL Calcium 8.3 L (8.4-10.2) mg/dL AST 39 H (14-36) U/L ALT 39 H (4-34) U/L Total Protein 4.9 L (6.3-8.2) g/dL Albumin 2.5 L (3.5-5.0) g/dL 02/07/20 Range/Units 12:00 RBC (3.80-5.40) m/uL Hgb (11.4-16.0) gm/dL Hct (34.0-46.0) % ABG pH (7.35-7.45) ABG pCO2 (35-45) mmHg ABG HCO3 (21-25) mmol/L ABG Total CO2 (19-24) mmol/L ABG O2 Saturation (94-97) % Carbon Dioxide (22-30) mmol/L Glucose (74-99) mg/dL POC Glucose (mg/dL) 122 H (75-99) mg/dL Calcium (8.4-10.2) mg/dL AST (14-36) U/L ALT (4-34) U/L Total Protein (6.3-8.2) g/dL Albumin (3.5-5.0) g/dL Assessment and Plan Assessment: Impression: Acute hypoxic and was failure secondary to multiple drugs overdose/suicidal intent. Polysubstance abuse. Cerebral anoxic brain injury, clinically improving today compared to previous few days. History of fibromyalgia. Lower seizure threshold secondary to anoxic brain injury. And abnormal EEG. History of depression and posttraumatic stress disorder. Tobacco dependence syndrome. Recommendation: Patient will be extubated to a nasal cannula. We'll arrange for psychiatric evaluation since the patient had a suicidal attempts. Continue Keppra. GI and DVT prophylaxis. I remained at bedside with the patient was extubated, and she seemed to tolerate the extubation well. will be updated on her condition. Critical care time is 33 minutes Time with Patient: Greater than 30
--- NOTE | 2020-02-07 14:32 | P.PN ---
Subjective Progress Note Date: 02/07/20 The patient is seen in neurologic follow-up on February 07, 2020 via teleneurology. The patient reports feeling okay today. She does not recall events surrounding her admission. She has been weaned from the respirator. Objective - Vital Signs Vital signs: Vital Signs Temp 98.7 F 02/07/20 12:00 Pulse 85 02/07/20 14:00 Resp 16 02/07/20 14:00 BP 109/61 02/06/20 09:00 Pulse Ox 96 02/07/20 14:00 Intake & Output 02/06/20 02/07/20 02/07/20 18:59 06:59 18:59 Intake Total 7617.881 5045.999 631.077 Output Total 1875 1855 785 Balance -604.155 -426.001 -153.923 Weight 69.3 kg 69.3 kg Intake: IV 580 460 530 Lacosamide IV 200 mg In 50 Sodium Chloride 0.9% 50 ml @ 100 mls/hr IVPB ONCE [facility] Rx#:[id number] Piperacillin-Tazobactam 3 100 100 100 .375 gm In Sodium Chloride 0.9% 100 ml @ 25 mls/hr IVPB Q8HR [facility] Rx# :[id number] Sodium Chloride 0.9% 1, 330 360 180 000 ml @ 30 mls/hr IV . Q24H [facility] Rx#:[id number] Thiamine 100 mg In Sodium 50 100 Chloride 0.9% 50 ml @ 100 mls/hr IVPB DAILY [facility] Rx#:[id number] levETIRAcetam IV 1,500 mg 100 100 In Saline 1 100ml.bag @ 400 mls/hr IVPB Q12HR [facility] Rx#:[id number] Intake, IV Titration 76.845 254.999 49.077 Amount propofoL 1,000 mg In 76.845 254.999 49.077 Empty Bag 1 bag @ Titrate IV .Q0M [facility] Rx#: [id number] Tube Feeding 524 624 52 Other 90 90 Output: Urine 1875 1855 785 Other: Voiding Method Indwelling Catheter Indwelling Catheter Indwelling Catheter ABP, PAP, CO, CI - Last Documented Arterial Blood Pressure 123/62 - Exam Gen.: The patient is well-nourished. She is seated in the bedside chair. She is no longer on mechanical ventilation or sedation. She is in no acute distress. HEENT: Head is atraumatic, normocephalic. Fundus not visualized. There is no scleral icterus. Mucous membranes are moist. 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 She reports her age to be "51". She does not recall events surrounding her admission. Her speech is raspy, but clear and fluent. Cranial nerves: Pupils are equal at 3 mm and sluggishly reactive. Visual florez are full to confrontation. Extraocular movements are intact. There is no facial asymmetry. Hearing is grossly intact. Shoulder shrug is symmetric. Motor: Upper extremity strength is 5 minus/5. Lower extremity strength 4/5. Coordination: Finger to nose testing is intact. There is no tremor. - Labs CBC & Chem 7: 02/07/20 04:00 02/07/20 04:00 Labs: Abnormal Lab Results - Last 24 Hours (Table) 02/06/20 02/06/20 02/07/20 Range/Units 17:33 23:44 04:00 RBC 2.86 L (3.80-5.40) m/uL Hgb 8.9 L (11.4-16.0) gm/dL Hct 27.8 L (34.0-46.0) % ABG pH (7.35-7.45) ABG pCO2 (35-45) mmHg ABG HCO3 (21-25) mmol/L ABG Total CO2 (19-24) mmol/L ABG O2 Saturation (94-97) % Carbon Dioxide (22-30) mmol/L Glucose (74-99) mg/dL POC Glucose (mg/dL) 124 H 125 H (75-99) mg/dL Calcium (8.4-10.2) mg/dL AST (14-36) U/L ALT (4-34) U/L Total Protein (6.3-8.2) g/dL Albumin (3.5-5.0) g/dL 02/07/20 02/07/20 02/07/20 Range/Units 04:00 06:01 07:12 RBC (3.80-5.40) m/uL Hgb (11.4-16.0) gm/dL Hct (34.0-46.0) % ABG pH 7.47 H (7.35-7.45) ABG pCO2 47 H (35-45) mmHg ABG HCO3 34 H (21-25) mmol/L ABG Total CO2 36 H (19-24) mmol/L ABG O2 Saturation 99.1 H (94-97) % Carbon Dioxide 33 H (22-30) mmol/L Glucose 117 H (74-99) mg/dL POC Glucose (mg/dL) 122 H (75-99) mg/dL Calcium 8.3 L (8.4-10.2) mg/dL AST 39 H (14-36) U/L ALT 39 H (4-34) U/L Total Protein 4.9 L (6.3-8.2) g/dL Albumin 2.5 L (3.5-5.0) g/dL 02/07/20 Range/Units 12:00 RBC (3.80-5.40) m/uL Hgb (11.4-16.0) gm/dL Hct (34.0-46.0) % ABG pH (7.35-7.45) ABG pCO2 (35-45) mmHg ABG HCO3 (21-25) mmol/L ABG Total CO2 (19-24) mmol/L ABG O2 Saturation (94-97) % Carbon Dioxide (22-30) mmol/L Glucose (74-99) mg/dL POC Glucose (mg/dL) 122 H (75-99) mg/dL Calcium (8.4-10.2) mg/dL AST (14-36) U/L ALT (4-34) U/L Total Protein (6.3-8.2) g/dL Albumin (3.5-5.0) g/dL Assessment and Plan Assessment: 1. Multi-drug overdose, suicide attempt resulting in toxic/hypoxic encephalopathy-mental status improved 2. Apparent history of depression Plan: 1. Continue to closely monitor patient's mental status 2. Consider psychiatry consultation regarding depression Time with Patient: Less than 30 (spent 25 minutes with patient via teleneurology)
--- NOTE | 2020-02-07 15:24 | P.PN ---
Subjective 50-year-old female with a known history of fibromyalgia, GERD, anxiety/depression/PTSD and currently everyday smoker was initially brought to the hospital by EMS after being found unresponsive with a needle in her left antecubital space. Patient was found unconscious by her . Apparently patient has access to medications that are used in the veterinary clinic. Patient was unresponsive somnolent with bradycardia and labored breathing. Patient was given 2 mg of Narcan without any response by EMS personnel. Patient was transported to ER where she was intubated. Chest x-ray showed no acute process. No evident complication status post tube placement. CT head. Stable brain CT. No acute abnormality noted. EKG showed sinus bradycardia with heart rate 51 2D echocardiogram showed ejection fraction 35 to 40% with no significant valve abnormalities noted. Laboratory data showed sodium 136, potassium 4.1 BUN 11 creatinine 0.91 Calcium 8.1 Urinalysis showed nitrite positive and WBCs 1 UDS is positive for opiates, barbiturates, benzodiazepines, marijuana. ABG showed pH of 7.28, PCO2 42 and PO2 greater than 100 on admission. On 02/04/2020 Patient is currently on mechanical Ventilator with assist control. Patient had a repeat EEG today. Initial EEG showed evidence of anoxic brain injury and generalized epileptiform discharges. Neurologically patient did not make any improvement. Patient is being continued on antibiotics in the form of Zosyn for possible aspiration pneumonia. Pulmonary neurology is on board. 02/05/2020 Patient can use to be on ventilator support patient appears to have significant anoxic brain injury and EGD showing significant encephalopathy. Patient is on antiseizure medications patient still has some brain stem reflexes. her prognosis is extremely poor in spite of aggressive treatment patient remains on ventilatory support and not expected to have a reasonable neurological recovery because of this reason neurologist discussed with the family regarding overall goals of care and plan is to make comfort care and terminal wean tomorrow. Patient remains on pressor support at this time. 02/06/2020 Patient actually woke up with significant improvement go in Edvin Coma Scale today. Patient always had brainstem reflexes but patient is arousable today. Since patient is not a recent rising with the ventilator patient was started on sedation today patient will undergo weaning trials tomorrow. 02/07/2020 Patient is expected to todaypatient is clinically doing well. Patient is alert and oriented 3 today patient states she is always depressed but she agrees that she is not in a commit suicide if she is discharged.patient has a sitterand the psychiatry will evaluate the patient review of systems: Unable to often and this time due to her clinical condition All inpatient medications were reviewed and appropriate changes in these medications as dictated in the interval history and assessment and plan. Objective - Vital Signs Vital signs: Vital Signs Temp 98.7 F 02/07/20 12:00 Pulse 83 02/07/20 15:00 Resp 13 02/07/20 15:00 BP 109/61 02/06/20 09:00 Pulse Ox 97 02/07/20 15:00 Intake & Output 02/06/20 02/07/20 02/07/20 18:59 06:59 18:59 Intake Total 2018.435 4326.999 721.077 Output Total 1875 1855 1135 Balance -604.155 -426.001 -413.923 Weight 69.3 kg 69.3 kg Intake: IV 580 460 620 Lacosamide IV 200 mg In 50 Sodium Chloride 0.9% 50 ml @ 100 mls/hr IVPB ONCE [facility] Rx#:[id number] Piperacillin-Tazobactam 3 100 100 100 .375 gm In Sodium Chloride 0.9% 100 ml @ 25 mls/hr IVPB Q8HR [facility] Rx# :[id number] Sodium Chloride 0.9% 1, 330 360 270 000 ml @ 30 mls/hr IV . Q24H [facility] Rx#:[id number] Thiamine 100 mg In Sodium 50 100 Chloride 0.9% 50 ml @ 100 mls/hr IVPB DAILY [facility] Rx#:[id number] levETIRAcetam IV 1,500 mg 100 100 In Saline 1 100ml.bag @ 400 mls/hr IVPB Q12HR [facility] Rx#:[id number] Intake, IV Titration 76.845 254.999 49.077 Amount propofoL 1,000 mg In 76.845 254.999 49.077 Empty Bag 1 bag @ Titrate IV .Q0M [facility] Rx#: [id number] Tube Feeding 524 624 52 Other 90 90 Output: Urine 1875 1855 1135 Other: Voiding Method Indwelling Catheter Indwelling Catheter Indwelling Catheter ABP, PAP, CO, CI - Last Documented Arterial Blood Pressure 123/62 - Exam PHYSICAL EXAMINATION: GENERAL: The patient is alert and oriented x3, not in any acute distress. Well developed, well nourished. HEENT: Pupils are round and equally reacting to light. EOMI. No scleral icterus. No conjunctival pallor. Normocephalic, atraumatic. No pharyngeal erythema. No thyromegaly. CARDIOVASCULAR: S1 and S2 present. No murmurs, rubs, or gallops. PULMONARY: Chest is clear to auscultation, no wheezing or crackles. ABDOMEN: Soft, nontender, nondistended, normoactive bowel sounds. No palpable organomegaly. MUSCULOSKELETAL: No joint swelling or deformity. EXTREMITIES: No cyanosis, clubbing, or pedal edema. NEUROLOGICAL: Gross neurological examination did not reveal any focal deficits. SKIN: No rashes. - Labs CBC & Chem 7: 02/07/20 04:00 02/07/20 04:00 Labs: Abnormal Lab Results - Last 24 Hours (Table) 02/06/20 02/06/20 02/07/20 Range/Units 17:33 23:44 04:00 RBC 2.86 L (3.80-5.40) m/uL Hgb 8.9 L (11.4-16.0) gm/dL Hct 27.8 L (34.0-46.0) % ABG pH (7.35-7.45) ABG pCO2 (35-45) mmHg ABG HCO3 (21-25) mmol/L ABG Total CO2 (19-24) mmol/L ABG O2 Saturation (94-97) % Carbon Dioxide (22-30) mmol/L Glucose (74-99) mg/dL POC Glucose (mg/dL) 124 H 125 H (75-99) mg/dL Calcium (8.4-10.2) mg/dL AST (14-36) U/L ALT (4-34) U/L Total Protein (6.3-8.2) g/dL Albumin (3.5-5.0) g/dL 02/07/20 02/07/20 02/07/20 Range/Units 04:00 06:01 07:12 RBC (3.80-5.40) m/uL Hgb (11.4-16.0) gm/dL Hct (34.0-46.0) % ABG pH 7.47 H (7.35-7.45) ABG pCO2 47 H (35-45) mmHg ABG HCO3 34 H (21-25) mmol/L ABG Total CO2 36 H (19-24) mmol/L ABG O2 Saturation 99.1 H (94-97) % Carbon Dioxide 33 H (22-30) mmol/L Glucose 117 H (74-99) mg/dL POC Glucose (mg/dL) 122 H (75-99) mg/dL Calcium 8.3 L (8.4-10.2) mg/dL AST 39 H (14-36) U/L ALT 39 H (4-34) U/L Total Protein 4.9 L (6.3-8.2) g/dL Albumin 2.5 L (3.5-5.0) g/dL 02/07/20 Range/Units 12:00 RBC (3.80-5.40) m/uL Hgb (11.4-16.0) gm/dL Hct (34.0-46.0) % ABG pH (7.35-7.45) ABG pCO2 (35-45) mmHg ABG HCO3 (21-25) mmol/L ABG Total CO2 (19-24) mmol/L ABG O2 Saturation (94-97) % Carbon Dioxide (22-30) mmol/L Glucose (74-99) mg/dL POC Glucose (mg/dL) 122 H (75-99) mg/dL Calcium (8.4-10.2) mg/dL AST (14-36) U/L ALT (4-34) U/L Total Protein (6.3-8.2) g/dL Albumin (3.5-5.0) g/dL Assessment and Plan Plan: Assessment and Plan Assessment: Acute hypoxic respiratory failure secondary to multidrug overdose/ suicide attempt, patient is extubated on 02/07/2020. Severe anoxic brain injury secondary to above Polysubstance use High risk for seizures1 patient is on prophylactic seizure medications. -Severe metabolic and toxic encephalopathy anxiety/depression/PTSD, suicide attempt: Psychiatry will evaluate the patient patient has a sitter in place now DVT prophylaxis Heparin subcu
[2020-02-07] MEDS: ACETAMINOPHEN IV (For NPO) 1,000 MG in EMPTY BAG 1 BAG IVPB PRN ×2 (16:35→21:54)
[2020-02-07 18:21] LABS: Glucose,Whole Blood 107 mg/dL (75-99)
[2020-02-07] MEDS: ONDANSETRON 4 MG/2 ML VIAL IVP PRN (18:30)
[2020-02-07] MEDS: DICLOFENAC SODIUM GEL 100 GM TUBE TOPICAL PRN ×2 (21:54→23:52)
[2020-02-07 23:51] LABS: Glucose,Whole Blood 92 mg/dL (75-99)
[2020-02-08] MEDS: ONDANSETRON 4 MG/2 ML VIAL IVP PRN ×2 (00:18→08:04)
[2020-02-08] MEDS ORDERED: LORazepam 2 MG/ML INJ IV STA (02:33)
[2020-02-08] MEDS: SODIUM CHLORIDE 0.9% 1,000 ML IV SCH (02:39)
[2020-02-08 07:54] LABS: Glucose,Whole Blood 96 mg/dL (75-99)
[2020-02-08] MEDS: HEPARIN SODIUM,PORCINE 5,000 UNIT/ML 1 ML VIAL SQ SCH ×2 (07:56→16:01)
[2020-02-08] MEDS: PANTOPRAZOLE 40 MG/10 ML VIAL IV SCH (07:56)
[2020-02-08] MEDS: PIPERACILLIN-TAZOBACTAM 3.375 GM in SODIUM CHLORIDE 0.9% 100 ML IVPB SCH ×2 (07:56→16:01)
[2020-02-08] MEDS: LACOSAMIDE IV 100 MG in SODIUM CHLORIDE 0.9% 50 ML IVPB SCH (09:50)
[2020-02-08] MEDS: levETIRAcetam IV 1,500 MG in SALINE 1 100ML.BAG IVPB SCH (10:22)
[2020-02-08] MEDS: THIAMINE 100 MG in SODIUM CHLORIDE 0.9% 50 ML IVPB SCH (10:45)
[2020-02-08 11:49] LABS: Glucose,Whole Blood 91 mg/dL (75-99)
[2020-02-08] MEDS ORDERED: FLUoxetine HCL 10 MG CAP PO SCH (14:45)
--- NOTE | 2020-02-08 14:53 | P.CN ---
Psychiatric Consult - . 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 REASON FOR REFERRAL: Psychiatry was consulted for suicide attempt HISTORY OF PRESENT ILLNESS: The patient presented to the hospital initially on 02/01/2020 and she was apparently reported found by her unresponsive with a needle sticking in her arm. Patient apparently had access to medications used at a veterinary clinic. According the ER report patient had a suicide note on her lap. She appeared to be somnolent and was bradycardic and received Narcan and O2 prior to coming into the ER. Patient had a CT scanner had which showed no acute abnormalities and also UDS is positive for opiates, barbiturates, benzodiazepines and THC. There is taking care patient claims that she has had no behavioral issues. Patient was seen at the bedside sitting after eating her lunch and claims that she did not know why she was the hospital. Patient was guarded/evasive regarding the suicide attempt. She states that "apparently I overdosed". She appeared to have no concern about her condition and what happened. She states that "I don't remember much". She was not endorsing any triggers or stressors recently. She denied any problems with her mood and states that "I'm okay". She claims that she did have a panic attack last night however anxiety has been fairly controlled. She states that she has been sleeping poorly at night. She claims that she has been mostly compliant with her medications at home. She states that she has to live for her and son. She claims that she has a gun however it is kept in a safe. At this time patient denies any suicidal or homical ideations, intent or plan. Patient denies any auditory, visual hallucinations and denies any paranoia or delusions. Patients admits to using cigarette only. Sewing Supervisor called Del, patient's over the phone at [phone] who was fairly guarded/evasive about the events that occurred prior to the suicide attempt. He states that she has been dealing with chronic depression however denies any current or recent stressors in her life. He stated that he was at work and talked to her last at 2 PM and didn't suspect anything and claims that around 5 PM when he came home she was sitting in a chair with a needle in her arm and a suicide note. He claims that he does not have the suicide note or note any longer as the bunch breaker took it from him. He claims that he would not be willing to sign a petition for his . PAST PSYCHIATRIC HISTORY: Patient has a a history of anxiety, depression and PTSD. Patient was previously on Lamictal, Prozac and Remeron. Patient denies any previous psychiatric hospitalizations. She states that she currently follows up with Dr. Anderson as her psychiatrist. Patient denies any history of suicide attempts in the past. PAST MEDICAL HISTORY: Chronic pain, fibromyalgia, GERD. ALLERGIES: as per EMR. CHEMICAL DEPENDENCY HISTORY: as per HPI. FAMILY PSYCHIATRIC/SUBSTANCE USE HISTORY: She claims that her father has attempted suicide in the past and had other mental health problems. SOCIAL HISTORY: Patient was born and raised in [place] [facility] and claims that she almost graduated with a criminal justice degree. She claims that she has 1 son and lives with her in a house. 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 MENTAL STATUS EXAM: General Appearance: Patient appears to be stated age is alert, guarded/evasive and uncooperative. Patient appears to have fair hygiene and grooming wearing h ospital gown with fair eye contact. Behavior: Patient is calmly lying in bed without any agitated behavior. Guarded/evasive Speech: Patient's speech is fluent and nonpressured. Mood/Affect: Patient reports their mood is "ok", affect is incongruent Suicidality/Homicidality: Patient denies having any suicidal or homicidal ideation intent or plan. Perceptions: Patient denies any visual hallucinations and denies any auditory hallucinations Though content/process: Patient is guarded/evasive, poverty of content and speech. Memory and concentration: AOX3, grossly intact for the purposes of this session. Can spell "WORLD" backwards Judgment and insight: poor IMPRESSIONS: Major depressive disorder, without psychotic features Cannabis use disorder Nicotine dependence PLAN: -At this time patient DOES meet criteria for inpatient psychiatric admission. Patient is guarded and evasive about her suicide attempt and is not sharing the details of it and minimizing her symptoms. Patient's over the phone was also being fairly guarded about the events that occurred. -Would recommend the following medication changes/additions: Restart the patient back on Lamictal 25 mg twice a day for mood stabilization/depression, Prozac 30 mg daily for mood/anxiety. Melatonin 5 mg daily at bedtime for insomnia. -Continue 1:1 sitter for safety -Cannot leave AMA at this time. Patient will need a petition and certification if attempting to leave AMA. -When medically stable, patient is eligible for transfer to a psych bed when available. -Communicated plan to patient's nurse -Psychiatry will sign off at this time -Please contact with any questions.
[2020-02-08] MEDS ORDERED: ALPRAZolam 0.5 MG TAB PO PRN (15:14)
[2020-02-08 15:24] VITALS: BP 116/76; PULSE 82; RESP 17; TEMP 99.7
--- NOTE | 2020-02-08 16:01 | P.PN ---
Subjective Progress Note Date: 02/08/20 Principal diagnosis: Acute hypoxic respiratory failure secondary to intentional overdose requiring intubation and mechanical ventilator support, successfully weaned and extubated On 02/08/2020 patient seen in follow-up on the general medical surgical floor, patient was admitted back on 02/02/2020 after being found unresponsive after attempted suicidal attempt with injection of medications for dog euthanizzation. Required ventilatory support for several days, and she was successfully weaned and extubated after she started waking up and following some meaningful command. She was successfully extubated on 02/07/2020. Patient was transferred out of intensive care unit later in the afternoon yesterday. Today she is on 2 L of oxygen and a pulse ox of 96%, hemodynamically she is stable, low-grade fever this afternoon with a temp of 99.7F, afebrile overnight. She is breathing comfortably, she is fully awake, following commands. Nephrology is following, and patient does not recall events surrounding her admission. Objective - Vital Signs Vital signs: Vital Signs Temp 99.7 F H 02/08/20 15:00 Pulse 82 02/08/20 15:00 Resp 17 02/08/20 15:00 BP 116/76 02/08/20 15:00 Pulse Ox 96 02/08/20 15:00 Intake & Output 02/07/20 02/08/20 02/08/20 18:59 06:59 18:59 Intake Total 811.077 800 Output Total 1760 450 900 Balance -948.923 350 -900 Weight 69.3 kg Intake: IV 710 800 Lacosamide IV 200 mg In 50 Sodium Chloride 0.9% 50 ml @ 100 mls/hr IVPB ONCE [facility] Rx#:[id number] Piperacillin-Tazobactam 3 100 200 .375 gm In Sodium Chloride 0.9% 100 ml @ 25 mls/hr IVPB Q8HR [facility] Rx# :[id number] Sodium Chloride 0.9% 1, 360 600 000 ml @ 30 mls/hr IV . Q24H [facility] Rx#:[id number] Thiamine 100 mg In Sodium 100 Chloride 0.9% 50 ml @ 100 mls/hr IVPB DAILY [facility] Rx#:[id number] levETIRAcetam IV 1,500 mg 100 In Saline 1 100ml.bag @ 400 mls/hr IVPB Q12HR [facility] Rx#:[id number] Intake, IV Titration 49.077 Amount propofoL 1,000 mg In 49.077 Empty Bag 1 bag @ Titrate IV .Q0M [facility] Rx#: [id number] Tube Feeding 52 Output: Urine 1760 450 900 Other: Voiding Method Indwelling Catheter Indwelling Catheter Indwelling Catheter ABP, PAP, CO, CI - Last Documented Arterial Blood Pressure 123/62 - Exam GENERAL EXAM: Alert, pleasant, 50-year-old white female, on 2 L of oxygen the pulse ox 96% comfortable in no apparent distress. HEAD: Normocephalic/atraumatic. EYES: Normal reaction of pupils, equal size. Conjunctiva pink, sclera white. NOSE: Clear with pink turbinates. THROAT: No erythema or exudates. NECK: No masses, no JVD, no thyroid enlargement, no adenopathy. CHEST: No chest wall deformity. Symmetrical expansion. LUNGS: Equal air entry with no crackles, wheeze, rhonchi or dullness. CVS: Regular rate and rhythm, normal S1 and S2, no gallops, no murmurs, no rubs ABDOMEN: Soft, nontender. No hepatosplenomegaly, normal bowel sounds, no guarding or rigidity. EXTREMITIES: No clubbing, no edema, no cyanosis, 2+ pulses and upper and lower extremities. MUSCULOSKELETAL: Muscle strength and tone normal. SPINE: No scoliosis or deformity SKIN: No rashes CENTRAL NERVOUS SYSTEM: Alert and oriented -3. No focal deficits, tone is normal in all 4 extremities. PSYCHIATRIC: Alert and oriented -3. Appropriate affect. Intact judgment and insight. - Labs CBC & Chem 7: 02/07/20 04:00 02/07/20 04:00 Labs: Abnormal Lab Results - Last 24 Hours (Table) 02/07/20 Range/Units 18:20 POC Glucose (mg/dL) 107 H (75-99) mg/dL Assessment and Plan Plan: Assessment: Acute hypoxic and was failure secondary to multiple drugs overdose/suicidal intent, requiring intubation and mechanical ventilator support for several days, intubated on 02/02/2020 and successfully weaned and extubated on 02/07/2020 Polysubstance abuse. Cerebral anoxic brain injury, clinically improving today compared to previous few days. History of fibromyalgia. Lower seizure threshold secondary to anoxic brain injury. And abnormal EEG. History of depression and posttraumatic stress disorder. Tobacco dependence syndrome. Plan: Clinically stable, awake and alert, although does not remember all of the event that brought the patient into the hospital. Breathing comfortably, continue continue empiric antibiotics, follow-up chest x-ray in the morning. Increase activity as tolerated, she's been evaluated for psychiatry, and patient will be eligible for transfer to a psych bed when available I performed a history & physical examination of the patient and discussed their management with my nurse practitioner, Lauryn Krishnan. I reviewed the nurse practitioner's note and agree with the documented findings and plan of care. Lung sounds are positive for diminished breath sounds. The findings and the impression was discussed with the patient. I attest to the documentation by the nurse practitioner. Time with Patient: Less than 30
--- NOTE | 2020-02-08 16:08 | P.DS ---
Providers Date of admission: 02/01/20 20:45 Attending physician: Es Graves Consults: 02/01/20 20:45 Consult Physician Routine Consulting Provider: Oscar Montes Consult Reason/Comments: cervical anoxia, drug overdose Do you want consulting provider notified?: Yes, Notify in am Consult Physician Stat Consulting Provider: Javid Henry Consult Reason/Comments: ICU management, ventilator management Do you want consulting provider notified?: Already Contacted 02/07/20 09:04 Consult Physician Routine Consulting Provider: Mukesh Andrews Consult Reason/Comments: Suicide attempt Do you want consulting provider notified?: Yes Primary care physician: Stated None Hospital Course: 50-year-old female with a known history of fibromyalgia, GERD, anxiety/depression/PTSD and currently everyday smoker was initially brought to the hospital by EMS after being found unresponsive with a needle in her left antecubital space. Patient was found unconscious by her . Apparently patient has access to medications that are used in the veterinary clinic. Patient was unresponsive somnolent with bradycardia and labored breathing. Patient was given 2 mg of Narcan without any response by EMS personnel. Patient was transported to ER where she was intubated. Chest x-ray showed no acute process. No evident complication status post tube placement. CT head. Stable brain CT. No acute abnormality noted. EKG showed sinus bradycardia with heart rate 51 2D echocardiogram showed ejection fraction 35 to 40% with no significant valve abnormalities noted. Laboratory data showed sodium 136, potassium 4.1 BUN 11 creatinine 0.91 Calcium 8.1 Urinalysis showed nitrite positive and WBCs 1 UDS is positive for opiates, barbiturates, benzodiazepines, marijuana. ABG showed pH of 7.28, PCO2 42 and PO2 greater than 100 on admission. On 02/04/2020 Patient is currently on mechanical Ventilator with assist control. Patient had a repeat EEG today. Initial EEG showed evidence of anoxic brain injury and generalized epileptiform discharges. Neurologically patient did not make any improvement. Patient is being continued on antibiotics in the form of Zosyn for possible aspiration pneumonia. Pulmonary neurology is on board. 02/05/2020 Patient can use to be on ventilator support patient appears to have significant anoxic brain injury and EGD showing significant encephalopathy. Patient is on antiseizure medications patient still has some brain stem reflexes. her prognosis is extremely poor in spite of aggressive treatment patient remains on ventilatory support and not expected to have a reasonable neurological recovery because of this reason neurologist discussed with the family regarding overall goals of care and plan is to make comfort care and terminal wean tomorrow. Patient remains on pressor support at this time. 02/06/2020 Patient actually woke up with significant improvement go in [place] Coma Scale today. Patient always had brainstem reflexes but patient is arousable today. Since patient is not a recent rising with the ventilator patient was started on sedation today patient will undergo weaning trials tomorrow. 02/07/2020 Patient is expected to todaypatient is clinically doing well. Patient is alert and oriented 3 today patient states she is always depressed but she agrees that she is not in a commit suicide if she is discharged.patient has a sitterand the psychiatry will evaluate the patient 02/08/2020 Patient is medically doing well and medically stable to be discharged. Patient was a valid by physical therapy will not require any home care of subacute rehabilitation. Patient was a valid by psychiatry the recommending inpatient psychiatric admission patient will be discharged to inpatient psychiatry. Patient is being visual done medications for her mood disorder. Discussed with the neurology and neurology is according continuing Keppra 500 twice a day for few days until seen by an outpatient neurologist. Blaine doesn't have any obvious seizures but it did show some generalized epileptiform discharges. Tramadol will be discontinued. Blaine was complaining of the sputum production no obvious pneumonia patient was on empiric antibiotics a while in ICU patient will be discharged on 3 more days of Augmentin for bronchitis. PHYSICAL EXAMINATION: GENERAL: The patient is alert and oriented x3, not in any acute distress. Well developed, well nourished. HEENT: Pupils are round and equally reacting to light. EOMI. No scleral icterus. No conjunctival pallor. Normocephalic, atraumatic. No pharyngeal erythema. No thyromegaly. CARDIOVASCULAR: S1 and S2 present. No murmurs, rubs, or gallops. PULMONARY: Chest is clear to auscultation, no wheezing or crackles. ABDOMEN: Soft, nontender, nondistended, normoactive bowel sounds. No palpable organomegaly. MUSCULOSKELETAL: No joint swelling or deformity. EXTREMITIES: No cyanosis, clubbing, or pedal edema. NEUROLOGICAL: Gross neurological examination did not reveal any focal deficits. SKIN: No rashes. Assessment and Plan Assessment: Acute hypoxic respiratory failure secondary to multidrug overdose/ suicide attempt, patient is extubated on 02/07/2020. Severe anoxic brain injury secondary , but excellent recovery. Polysubstance use High risk for seizures patient is on prophylactic seizure medications. -Severe metabolic and toxic encephalopathy resolved at this time anxiety/depression/PTSD, suicide attempt: Patient will be admitted to inpatient psychiatry Patient Condition at Discharge: Critical Plan - Discharge Summary Discharge Rx Participant: No New Discharge Prescriptions: New Amoxicillin/Potassium Clav [Augmentin 875-125 Tablet] 1 tab PO Q12HR 3 Days #6 tab levETIRAcetam [Keppra] 500 mg PO Q12HR #20 tab Continue lamoTRIgine [LaMICtal] 150 mg PO DIRECTED Topiramate [Topamax] 100 mg PO HS FLUoxetine HCL [PROzac] 80 mg PO HS ALPRAZolam [Xanax] 0.5 mg PO BID PRN PRN Reason: Anxiety ALPRAZolam [ALPRAZolam XR] 1 mg PO QAM Dicyclomine HCl 10 mg PO BID PRN PRN Reason: Gi Upset Radha (Unknown Strength) 1 tab PO DAILY PRN PRN Reason: seasonal allergies Discontinued Propranolol LA [Inderal LA] 60 mg PO DAILY traMADol HCL 50 mg PO Q6H PRN PRN Reason: Pain Discharge Medication List lamoTRIgine [LaMICtal] 150 mg PO DIRECTED 09/03/13 [History] Topiramate [Topamax] 100 mg PO HS 09/07/13 [History] FLUoxetine HCL [PROzac] 80 mg PO HS 12/29/16 [History] ALPRAZolam [ALPRAZolam XR] 1 mg PO QAM 02/01/20 [History] ALPRAZolam [Xanax] 0.5 mg PO BID PRN 02/01/20 [History] Radha (Unknown Strength) 1 tab PO DAILY PRN 02/01/20 [History] Dicyclomine HCl 10 mg PO BID PRN 02/01/20 [History] Amoxicillin/Potassium Clav [Augmentin 875-125 Tablet] 1 tab PO Q12HR 3 Days #6 tab 02/08/20 [Rx] levETIRAcetam [Keppra] 500 mg PO Q12HR #20 tab 02/08/20 [Rx] Follow up Appointment(s)/Referral(s): Kayce Bone MD [REFERRING] - 1 Week (office will call with appointment time) Ulises Roberts DO [Doctor of Osteopathic Medicine] - 3 Days Activity/Diet/Wound Care/Special Instructions: If you do not have a primary care physician, go to [email or web address] to find local waldemar burnett. Discharge Disposition: HOME SELF-CARE
--- NOTE | 2020-02-08 18:07 | P.PN ---
Subjective Progress Note Date: 02/08/20 Patient was seen for a follow-up. Patient was initially seen by Dr. Oscar Montes, please refer to his previous notes. Patient admitted with intentional overdose on euthanasia fluid. Patient had a very severely abnormal EEG initially with burst suppressed pattern. Patient was intubated. Patient fortunately started improving, and started responding, and was extubated. At present patient has hoarse voice, offers no complaints. Objective - Vital Signs Vital signs: Vital Signs Temp 99.7 F H 02/08/20 15:00 Pulse 82 02/08/20 16:20 Resp 17 02/08/20 16:20 BP 116/76 02/08/20 15:00 Pulse Ox 96 02/08/20 15:00 Intake & Output 02/07/20 02/08/20 02/08/20 18:59 06:59 18:59 Intake Total 811.077 800 725 Output Total 2720 083 5984 Balance -948.923 350 -1075 Weight 69.3 kg Intake: IV 710 800 350 Lacosamide IV 200 mg In 50 Sodium Chloride 0.9% 50 ml @ 100 mls/hr IVPB ONCE [facility] Rx#:[id number] Piperacillin-Tazobactam 3 100 200 200 .375 gm In Sodium Chloride 0.9% 100 ml @ 25 mls/hr IVPB Q8HR [facility] Rx# :[id number] Sodium Chloride 0.9% 1, 360 600 000 ml @ 30 mls/hr IV . Q24H [facility] Rx#:[id number] Thiamine 100 mg In Sodium 100 50 Chloride 0.9% 50 ml @ 100 mls/hr IVPB DAILY [facility] Rx#:[id number] levETIRAcetam IV 1,500 mg 100 100 In Saline 1 100ml.bag @ 400 mls/hr IVPB Q12HR [facility] Rx#:[id number] Intake, IV Titration 49.077 50 Amount Lacosamide IV 100 mg In 50 Sodium Chloride 0.9% 50 ml @ 100 mls/hr IVPB BID [facility] Rx#:[id number] propofoL 1,000 mg In 49.077 Empty Bag 1 bag @ Titrate IV .Q0M [facility] Rx#: [id number] Oral 325 Tube Feeding 52 Output: Urine 6057 921 0020 Other: Voiding Method Indwelling Catheter Indwelling Catheter Toilet # Voids 2 ABP, PAP, CO, CI - Last Documented Arterial Blood Pressure 123/62 - Exam Patient is alert and awake in no distress. She has a hoarse voice. Speech and language functions are normal. Patient is fully oriented, knows it is January 2020 and that she is in [facility] and knows name of the current president Mr. Busby. Cranial nerves are normal. Muscle strength is normal. - Labs CBC & Chem 7: 02/07/20 04:00 02/07/20 04:00 Labs: Abnormal Lab Results - Last 24 Hours (Table) 02/07/20 Range/Units 18:20 POC Glucose (mg/dL) 107 H (75-99) mg/dL Assessment and Plan Assessment: * Suicide attempt. Patient had severe encephalopathy on the initial EEG, but fortunately has turned around and has improved remarkably. * No history of seizure disorder in the past. * Anxiety depression/PTSD. * Substance abuse. Plan: * Discontinue Vimpat. * Discontinue tramadol. * We will decrease Keppra down to 500 mg twice a day (currently on 1500 mg twice a day). May slowly wean off Keppra as well in the next 2-5 days, if remains neurologically stable. Patient never had any history of seizures. * May continue her home medications of Lamictal and Topamax. * Psychiatric closely following the patient.
[2020-02-08] MEDS: SCOPOLAMINE 1.5MG/72HR PATCH TRANSDERM SCH (18:10)
[2020-02-08] MEDS ORDERED: lamoTRIgine 25 MG TAB PO SCH (21:00)
[2020-02-08] MEDS ORDERED: AMOXIC-POT CLAV 875-125MG 1 EACH TAB PO SCH (21:00)
[2020-02-08] MEDS ORDERED: MELATONIN 5 MG TABLET PO SCH (21:00)
[2020-02-08] MEDS ORDERED: levETIRAcetam 500 MG TAB PO SCH (21:00)
== END 2020-02-08 18:36 | DRG 917 ==
LOC: EC 17:40 → 2SICU 20:45 → 4SSUR 02-07 23:17
PROVIDERS: ADMIT Internal Medicine; ATTEND Internal Medicine
PROC: 5A1955Z Respiratory Ventilation, Greater than 96 Consecutive Hours (ICD-10-PCS; principal; 2020-02-01)
PROC: 02HV33Z Insertion of Infusion Device into Superior Vena Cava, Percutaneous Approach (ICD-10-PCS; principal; 2020-02-01)
PROC: 0BH17EZ Insertion of Endotracheal Airway into Trachea, Via Natural or Artificial Opening (ICD-10-PCS; principal; 2020-02-01)
PROC: 03H733Z Insertion of Infusion Device into Right Brachial Artery, Percutaneous Approach (ICD-10-PCS; 2020-02-02)
DX: T50.912A Poisoning by multiple unspecified drugs, medicaments and biological substances, intentional self-harm, initial encounter (principal); J96.01 Acute respiratory failure with hypoxia; G92 Toxic encephalopathy; R57.8 Other shock; G93.1 Anoxic brain damage, not elsewhere classified; J90 Pleural effusion, not elsewhere classified; J98.11 Atelectasis; F17.200 Nicotine dependence, unspecified, uncomplicated; F41.8 Other specified anxiety disorders; Z51.5 Encounter for palliative care; J40 Bronchitis, not specified as acute or chronic; I95.9 Hypotension, unspecified; G89.29 Other chronic pain; M79.7 Fibromyalgia; K21.9 Gastro-esophageal reflux disease without esophagitis; J30.1 Allergic rhinitis due to pollen; F43.10 Post-traumatic stress disorder, unspecified; F32.9 Major depressive disorder, single episode, unspecified; F41.9 Anxiety disorder, unspecified; Z90.710 Acquired absence of both cervix and uterus; Z98.890 Other specified postprocedural states; Z79.899 Other long term (current) drug therapy; Z79.891 Long term (current) use of opiate analgesic; Z80.9 Family history of malignant neoplasm, unspecified; Z91.09 Other allergy status, other than to drugs and biological substances; Z90.49 Acquired absence of other specified parts of digestive tract; Z98.891 History of uterine scar from previous surgery
CPT/HCPCS: 31500; 36415; 36556; 36600; 70450; 71045; 80048; 80053; 80184; 80185; 80306; 80320; 80329; 81001; 82140; 82150; 82550; 82805; 83036; 83520; 83605; 83690; 83735; 83880; 83930; 84484; 85025; 85730; 87070; 87205; 93005; 93306; 94002; 94003; 95816; 96374; 99291

== ENCOUNTER 2020-02-08 18:00 | Inpatient (IN) | payer BC ==
[2020-02-08] MEDS ORDERED: MAG HYDROX/AL HYDROX/SIMETH 30 ML CUP PO PRN (18:40)
[2020-02-08] MEDS ORDERED: MAGNESIUM HYDROXIDE 2,400 MG/10 ML CUP PO PRN (18:40)
[2020-02-08] MEDS ORDERED: ZIPRASIDONE 20 MG VIAL IM PRN (18:40)
[2020-02-08] MEDS: AMOXIC-POT CLAV 875-125MG 1 EACH TAB PO SCH (22:23)
[2020-02-08] MEDS: lamoTRIgine 25 MG TAB PO SCH (22:23)
[2020-02-08] MEDS: LORazepam 1 MG TAB PO PRN (23:00)
[2020-02-09] MEDS: ACETAMINOPHEN TAB 325 MG TAB PO PRN ×2 (02:09→12:01)
[2020-02-09] MEDS ORDERED: FLUoxetine HCL 10 MG CAP PO SCH (09:00)
[2020-02-09] MEDS: lamoTRIgine 25 MG TAB PO SCH ×2 (09:17→20:47)
[2020-02-09] MEDS: AMOXIC-POT CLAV 875-125MG 1 EACH TAB PO SCH ×2 (09:17→20:47)
[2020-02-09] MEDS: LORazepam 1 MG TAB PO PRN ×2 (09:18→17:26)
--- NOTE | 2020-02-09 11:28 | P.HP ---
Psychiatric H&P - . H&P Date: 02/09/20 History & Physical: Allergies Allergy/AdvReac Type Severity Reaction Status Date / Time HAY FEVER AdvReac Cough Uncoded 02/08/20 23:15 Vital Signs Temp 98.1 F 02/09/20 02:16 Pulse 91 02/09/20 02:16 Resp 16 02/09/20 02:16 BP 135/79 02/09/20 02:16 Pulse Ox 97 02/09/20 02:16 Intake & Output 02/08/20 02/09/20 02/09/20 18:59 06:59 18:59 Weight 61.037 kg Laboratory Last Values Triglycerides 225 mg/dL (<150) H 02/09/20 09:41 Cholesterol 320 mg/dL (<200) H 02/09/20 09:41 LDL Cholesterol, Calc 225 mg/dL (0-99) H 02/09/20 09:41 HDL Cholesterol 50 mg/dL (40-60) 02/09/20 09:41 02/09/20 10:33 IDENTIFYING DATA: This patient is a 50-year-old female currently lives with her and house has 1 kid and 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 HISTORY OF PRESENT ILLNESS: The patient presented to the hospital initially on 02/01/2020 and she was apparently reported found by her unresponsive with a needle sticking in her arm. Patient apparently had access to medications used at a [facility] clinic. According the ER report patient had a suicide note on her lap. She appeared to be somnolent and was bradycardic and received Narcan and O2 prior to coming into the ER. Patient had a CT scanner had which showed no acute abnormalities and also UDS is positive for opiates, barbiturates, benzodiazepines and THC. Patient was intubated for several days and successfully extubated on 02/07/2020. Patient was initially seen on 02/08/2020 by junior underwriter for psychiatric evaluation on the medical floors. At that time patient was seen at the bedside sitting after eating her lunch and claims that she did not know why she was the hospital. Patient was guarded/evasive regarding the suicide attempt. She states that "apparently I overdosed". She appeared to have no concern about her condition and what happened. She states that "I don't remember much". She was not endorsing any triggers or stressors recently. She denied any problems with her mood and states that "I'm okay". She claims that she has been mostly compliant with her medications at home. She claimed that she has a gun however it is kept in a safe. Teletypewriter Operator called Del, patient's over the phone at [phone] on 02/08/2020 who was fairly guarded/evasive about the events that occurred prior to the suicide attempt. He stated that she has been dealing with chronic depression however denies any current or recent stressors in her life. He stated that he was at work and talked to her last at 2 PM and didn't suspect anything and claims that around 5 PM when he came home she was sitting in a chair with a needle in her arm and a suicide note. He claims that he does not have the suicide note any longer as the anesthesia associate took it from him. He claimed at that time that he would not be willing to sign a petition for his . Patient was seen after being admitted and transferred to the mental health unit this morning and appeared to be upset and frustrated with junior underwriter. She states that "you lied to me, I don't want to be here I want to go home". Patient had poor eye contact and was fairly argumentative with junior underwriter. She continues to minimize her suicide attempt and continues to state that "I don't know what happened". She claims that she has amnesia at times for certain events. She denied any stressors at home once again. She denies any depression or anxiety today. She claims that she did not sleep last night. At this time she denies any auditory visual hallucinations and denies any suicidal or homicidal ideations intent or plan. Patient claims that she uses marijuana at times and also smokes cigarettes. Denies any other recreational drug use. PAST PSYCHIATRIC HISTORY: Patient has a a history of anxiety, depression and PTSD. Patient was previously on Lamictal, Prozac and Remeron. Patient denies any previous psychiatric hospitalizations. She states that she currently follows up with Dr. Anderson as her psychiatrist. Patient denies any history of suicide attempts in the past. PAST MEDICAL HISTORY: Chronic pain, fibromyalgia, GERD. ALLERGIES: as per EMR. CHEMICAL DEPENDENCY HISTORY: as per HPI. FAMILY PSYCHIATRIC/SUBSTANCE USE HISTORY: She claims that her father has attempted suicide in the past and had other mental health problems. SOCIAL HISTORY: Patient was born and raised in [facility] and claims that she almost graduated with a criminal justice degree. She claims that she has 1 son and lives with her in a house. 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 MENTAL STATUS EXAM: General Appearance: Patient appears to be stated age is alert, guarded/evasive and uncooperative/argumentative. Patient appears to have fair hygiene and grooming wearing hospital gown with poor eye contact. Behavior: Patient is calmly sitting in the chair without any agitated behavior. Guarded/evasive Speech: Patient's speech is fluent and nonpressured. Mood/Affect: Patient reports their mood is "fine", affect is incongruent Suicidality/Homicidality: Patient denies having any suicidal or homicidal ideation intent or plan. Perceptions: Patient denies any visual hallucinations and denies any auditory hallucinations Though content/process: Patient is guarded/evasive, poverty of content and speech. Memory and concentration: AOX3, grossly intact for the purposes of this session. Can spell "WORLD" backwards Judgment and insight: poor INTELLECT: average STRENGTHS/WEAKNESSES: strength is that patient is resilient. Weakness is that patient has poor judgment and chronic mental illness IMPRESSIONS: Major depressive disorder, without psychotic features Cannabis use disorder Nicotine dependence PLAN: -Patient is admitted under voluntary status to MHU for stabilization of psyc hiatric symptoms and safety. Patient has signed adult voluntary form and medication consent and is placed in patient's chart. -Medications : Will start patient on lamictal 25mg bid for mood stabilizat ion/depression, will increase prozac to 40mg daily for mood/anxiety. Added trazodone 50 mg daily at bedtime for insomnia/mood. -Ativan and Geodon PRN for agitation/aggression -Patient was counselled on substance abuse and desired to cut back on use -Patient was informed of the risks, benefits and side effects of the medication and patient verbally consented to taking the medications. Patient signed med consent form and was placed in chart. -Internal Medicine consult to perform medical evaluation and physical. -Consult to EIGHT SECTION BLOWER to perform MOCA. -NRT - nicotine patch -SW on board for discharge planning. Encourage patient to participate in groups to work on coping skills. will ask SW to gather further collateral information about patient condition and suicide note from family and . 02/09/20 11:27
--- NOTE | 2020-02-09 12:38 | P.CONS ---
History of Present Illness - Reason for Consult Medical clearance - History of Present Illness 50-year-old pleasant female was a transfer from my service to psychiatric floor after she was treated for respiratory failure cardiorespiratory arrest, anoxic brain injury secondary to drug abuse and overdosing on multiple medications in the urine being positive for opiates barbiturates and benzodiazepines and THC's. Patient to also appears to have bronchitis from a prolonged intubation although all the cultures were negative. Patient was on Zosyn and was discharged on 3 more days of Augmentin which she'll complete by tomorrow. Patient is feeling well denied any fever chills patient and her nausea vomiting abdominal pain dysuria. Review of Systems REVIEW OF SYSTEMS: CONSTITUTIONAL: No fever, no malaise, no fatigue. HEENT: No recent visual problems or hearing problems. Denied any sore throat. CARDIOVASCULAR: No chest pain, orthopnea, PND, no palpitations, no syncope. PULMONARY: No shortness of breath, no cough, no hemoptysis. GASTROINTESTINAL: No diarrhea, no nausea, no vomiting, no abdominal pain. NEUROLOGICAL: No headaches, no weakness, no numbness. HEMATOLOGICAL: Denies any bleeding or petechiae. GENITOURINARY: Denies any burning micturition, frequency, or urgency. MUSCULOSKELETAL/RHEUMATOLOGICAL: Denies any joint pain, swelling, or any muscle pain. ENDOCRINE: Denies any polyuria or polydipsia. The rest of the 14-point review of systems is negative. Past Medical History Past Medical History: Fibromyalgia, GERD/Reflux, Musculoskeletal Disorder Additional Past Medical History / Comment(s): IBS, migraines History of Any Multi-Drug Resistant Organisms: None Reported Past Surgical History: Appendectomy, Section, Hernia Repair, Hysterectomy, Orthopedic Surgery Additional Past Surgical History / Comment(s): 14 abdominal surgeries post Hysterectomy, rt. knee-rt. elbow, left wrist. Pain clinic injections Past Anesthesia/Blood Transfusion Reactions: No Reported Reaction Past Psychological History: Anxiety, Depression, PTSD Smoking Status: Current every day smoker Past Alcohol Use History: Occasional Past Drug Use History: None Reported - Past Family History Mother Family Medical History: Cancer Medications and Allergies Home Medications Medication Instructions Recorded Confirmed Type lamoTRIgine [LaMICtal] 150 mg PO DIRECTED 09/03/13 02/08/20 History Topiramate [Topamax] 100 mg PO HS 09/07/13 02/08/20 History FLUoxetine HCL [PROzac] 80 mg PO HS 12/29/16 02/08/20 History ALPRAZolam [ALPRAZolam XR] 1 mg PO QAM 02/01/20 02/08/20 History ALPRAZolam [Xanax] 0.5 mg PO BID PRN 02/01/20 02/08/20 History Radha (Unknown Strength) 1 tab PO DAILY PRN 02/01/20 02/08/20 History Dicyclomine HCl 10 mg PO BID PRN 02/01/20 02/08/20 History Amoxicillin/Potassium Clav 1 tab PO Q12HR 3 Days #6 tab 02/08/20 02/08/20 Rx [Augmentin 875-125 Tablet] levETIRAcetam [Keppra] 500 mg PO Q12HR #20 tab 02/08/20 02/08/20 Rx Allergies Allergy/AdvReac Type Severity Reaction Status Date / Time HAY FEVER AdvReac Cough Uncoded 02/08/20 23:15 Physical Exam Vitals: Vital Signs Temp Pulse Resp BP Pulse Ox 02/09/20 02:16 98.1 F 91 16 135/79 97 02/08/20 18:45 99.1 F 88 18 136/77 98 Intake and Output 02/08/20 02/09/20 02/09/20 22:59 06:59 14:59 Other: Weight 61.037 kg PHYSICAL EXAMINATION: GENERAL: The patient is alert and oriented x3, not in any acute distress. Well developed, well nourished. HEENT: Pupils are round and equally reacting to light. EOMI. No scleral icterus. No conjunctival pallor. Normocephalic, atraumatic. No pharyngeal erythema. No thyromegaly. CARDIOVASCULAR: S1 and S2 present. No murmurs, rubs, or gallops. PULMONARY: Chest is clear to auscultation, no wheezing or crackles. ABDOMEN: Soft, nontender, nondistended, normoactive bowel sounds. No palpable organomegaly. MUSCULOSKELETAL: No joint swelling or deformity. EXTREMITIES: No cyanosis, clubbing, or pedal edema. NEUROLOGICAL: Gross neurological examination did not reveal any focal deficits. SKIN: No rashes. Results Labs: Abnormal Lab Results - Last 24 Hours (Table) 02/09/20 Range/Units 09:41 Triglycerides 225 H (<150) mg/dL Cholesterol 320 H (<200) mg/dL LDL Cholesterol, Calc 225 H (0-99) mg/dL Assessment and Plan Plan: -Depression, PTSD suicide attempt: Management as per primary service -Post intubation bronchitis: Continue with Augmentin will complete therapy by tomorrow -Anoxic brain injury status post cardiac pulmonary arrest patient doesn't appear to have any residual effects of this -Epileptiform discharges on the EEG when the patient was intubated continue with 500 twice a day for now until she is seen by outpatient neurologist. Patient is also on Lamictal for bipolar disorder. Keppra was recommended by neurologist.
[2020-02-09 16:16] LABS: Hemoglobin A1C 5.6 % (4.0-6.0)
[2020-02-09] MEDS: levETIRAcetam 500 MG TAB PO SCH (20:47)
[2020-02-09] MEDS ORDERED: traZODone HCL 50 MG TAB PO SCH (21:00)
[2020-02-10] MEDS: LORazepam 1 MG TAB PO PRN (04:18)
[2020-02-10] MEDS ORDERED: hydrOXYzine pamoate 25 MG CAP PO PRN (09:02)
[2020-02-10] MEDS: lamoTRIgine 25 MG TAB PO SCH ×2 (09:07→20:53)
[2020-02-10] MEDS: levETIRAcetam 500 MG TAB PO SCH ×2 (09:07→20:53)
[2020-02-10] MEDS: AMOXIC-POT CLAV 875-125MG 1 EACH TAB PO SCH ×2 (09:07→20:53)
[2020-02-10] MEDS: FLUoxetine HCL 20 MG CAP PO SCH (09:07)
--- NOTE | 2020-02-10 09:10 | P.PN ---
Progress Note - Text Progress Note Date: 02/10/20 Interval History: Patient was seen wandering the hallways and was directable and agreeable to sp aura with group underwriter in the office. Patient continues to have a hoarse voice secondary to being intubated. She claims that she is feeling mildly better today feeling more optimistic. She claims that her mood has been improving mildly. She states that she is able to get approximately 30-40 minutes of sleep last night which is an improvement for her. She was agreeable to have her trazodone increased today. She claims that she is having anxiety throughout the day and was taking Ativan however was agreeable to try Vistaril instead. She claims that she is trying to get along with others on the unit and has been going to groups. She states that she has been talking with her . She continues to deny having any recollection of the suicide attempt. At this time patient denies any suicidal or homical ideations, intent or plan. Patient denies any auditory, visual hallucinations and denies any paranoia or delusions. Patient denies any side effects from the medications and has been compliant with meds. Mental Status Exam: General Appearance: Patient appears to be stated age is alert, guarded/evasive, which is improving mildly. Patient appears to have fair hygiene and grooming wearing hospital gown with improving eye contact. Behavior: Patient is calmly sitting in the chair without any agitated behavior. Guarded/evasive, improving mildly Speech: Patient's speech is fluent and nonpressured. Hoarse voice Mood/Affect: Patient reports their mood is "better", affect is congruent Suicidality/Homicidality: Patient denies having any suicidal or homicidal ideation intent or plan. Perceptions: Patient denies any visual hallucinations and denies any auditory hallucinations Though content/process: Patient is guarded/evasive, poverty of content and speech. Memory and concentration: AOX3, grossly intact for the purposes of this session. Judgment and insight: poor, improving mildly Assessment Major depressive disorder, without psychotic features Cannabis use disorder Nicotine dependence Plan: -Patient continues to meet criteria for inpatient psychiatric admission for symptom stabilization and safety. Patient has signed adult voluntary form and medication consent and was placed in patient's chart. -Medications: Continue with Lamictal 50 mg twice a day for mood stabilization/depression. Continue with Prozac 40 mg daily for mood/anxiety. Increase trazodone to 100 mg daily at bedtime for insomnia/mood. Added Vistaril 25 mg every 6 hours when necessary for anxiety. -When necessary Ativan and Geodon for agitation/aggression. -EARLY CHILDHOOD TEACHER consult, appreciate recommendations. pts MOCA score on 02/09/2020 - . -NRT - nicotine patch -SW on board for discharge planning. Encouraged the patient to participate in milieu. will ask SW to gather further collateral information about patient condition and suicide note from family and . Consider discharge in 1-2 days.
[2020-02-10] MEDS: ACETAMINOPHEN TAB 325 MG TAB PO PRN ×2 (15:27→18:49)
[2020-02-10] MEDS: traZODone HCL 100 MG TAB PO SCH (20:53)
[2020-02-11] MEDS: lamoTRIgine 25 MG TAB PO SCH (09:13)
[2020-02-11] MEDS: levETIRAcetam 500 MG TAB PO SCH ×2 (09:13→21:22)
[2020-02-11] MEDS: FLUoxetine HCL 20 MG CAP PO SCH (09:13)
[2020-02-11] MEDS: AMOXIC-POT CLAV 875-125MG 1 EACH TAB PO SCH ×2 (09:13→21:22)
--- NOTE | 2020-02-11 11:48 | P.PN ---
Progress Note - Text Progress Note Date: 02/11/20 Interval History: Patient was seen taking part in group today and was directable and agreeable to speak with copywriter in the office. Patient continues to have a hoarse voice secondary to being intubated however she claims that this has been improving. She claims that she is trying to engage more in the unit and states that her mood has been gradually improving. She states that she was able to speak with her yesterday who gave her more information about what was going on her daily life at home. She states that her son had dropped off a puppy because he could not take care of it and states that this was causing her stress however she states that the puppy has since contacted her son and he is currently taking care of it. She continues to not have an idea as to what happened on the day she was admitted for an overdose and suicide attempt. He claims that she was able to sleep better last night on the increase in trazodone and wants to continue on this medication. She claims that she is trying to get along with others on the unit and has been going to groups. At this time patient denies any suicidal or homical ideations, intent or plan. Patient denies any auditory, visual hallucinations and denies any paranoia or delusions. Patient denies any side effects from the medications and has been compliant with meds. Mental Status Exam: General Appearance: Patient appears to be stated age is alert, guarded/evasive, which is improving mildly. Patient appears to have fair hygiene and grooming wearing hospital gown with improving eye contact. Behavior: Patient is calmly sitting in the chair without any agitated behavior. Speech: Patient's speech is fluent and nonpressured. Hoarse voice Mood/Affect: Patient reports their mood is "good", affect is congruent Suicidality/Homicidality: Patient denies having any suicidal or homicidal ideation intent or plan. Perceptions: Patient denies any visual hallucinations and denies any auditory hallucinations Though content/process: Patient is guarded/evasive, poverty of content and speech. Spoke more about her stressors Memory and concentration: AOX3, grossly intact for the purposes of this session. Judgment and insight: poor, improving mildly Assessment Major depressive disorder, without psychotic features Cannabis use disorder Nicotine dependence Plan: -Patient continues to meet criteria for inpatient psychiatric admission for symptom stabilization and safety. Patient has signed adult voluntary form and m edication consent and was placed in patient's chart. -Medications: Switched Lamictal 100 mg daily at bedtime for mood stabilization/depression. Continue with Prozac 40 mg daily for mood/anxiety. Continue with trazodone to 100 mg daily at bedtime for insomnia/mood. Continue with Vistaril 25 mg every 6 hours when necessary for anxiety. -When necessary Ativan and Geodon for agitation/aggression. -EPOXY COATINGS INSTALLER consult, appreciate recommendations. pts MOCA score on 02/09/2020 - . -NRT - nicotine patch -SW on board for discharge planning. Encouraged the patient to participate in milieu. maintenance worker house trailer to reach out to patient's 4 plan for discharge tomorrow and review safety concerns and also treatment plan and also to lock away any guns or weapons. Plan for discharge tomorrow.
[2020-02-11] MEDS: ACETAMINOPHEN TAB 325 MG TAB PO PRN ×2 (16:37→21:23)
[2020-02-11] MEDS ORDERED: lamoTRIgine 100 MG TAB PO SCH (21:00)
[2020-02-11] MEDS: traZODone HCL 100 MG TAB PO SCH (21:22)
[2020-02-12 06:20] VITALS: BP 105/53; PULSE 75; RESP 17; TEMP 97.8
[2020-02-12] MEDS: levETIRAcetam 500 MG TAB PO SCH (09:01)
[2020-02-12] MEDS: FLUoxetine HCL 20 MG CAP PO SCH (09:01)
--- NOTE | 2020-02-12 10:03 | P.DS ---
Providers Date of admission: 02/08/20 18:44 Expected date of discharge: 02/12/20 Attending physician: Mukesh Andrews MD Consults: 02/08/20 18:40 Consult Physician Routine Consulting Provider: Kendall Ríos Consult Reason/Comments: H&P and medical Do you want consulting provider notified?: Yes Primary care physician: Stated None - Discharge Diagnosis(es) (1) Major depressive disorder Current Visit: Yes Status: Acute Priority: High (2) Cannabis use disorder, mild, abuse Current Visit: Yes Status: Acute Priority: Medium (3) Nicotine dependence Current Visit: Yes Status: Acute Priority: Low Hospital Course: Admission HPI: Admission note was competed by verse writer "This patient is a 50-year-old female currently lives with her and house has 1 kid and 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 The patient presented to the hospital initially on 02/01/2020 and she was apparently reported found by her unresponsive with a needle sticking in her arm. Patient apparently had access to medications used [facility] a [facility]. According the ER report patient had a suicide note on her lap. She appeared to be somnolent and was bradycardic and received Narcan and O2 prior to coming into the ER. Patient had a CT scanner had which showed no acute abnormalities and also UDS is positive for opiates, barbiturates, benzodiazepines and THC. Patient was intubated for several days and successfully extubated on 02/07/2020. Patient was initially seen on 02/08/2020 by verse writer for psychiatric evaluation on the medical floors. At that time patient was seen at the bedside sitting after eating her lunch and claims that she did not know why she was the hospital. Patient was guarded/evasive regarding the suicide attempt. She states that "apparently I overdosed". She appeared to have no concern about her condition and what happened. She states that "I don't remember much". She was not endorsing any triggers or stressors recently. She denied any problems with her mood and states that "I'm okay". She claims that she has been mostly compliant with her medications at home. She claimed that she has a gun however it is kept in a safe. Mechanical Insulator called Del, patient's over the phone at [phone] on 02/08/2020 who was fairly guarded/evasive about the events that occurred prior to the suicide attempt. He stated that she has been dealing with chronic depression however denies any current or recent stressors in her life. He stated that he was at work and talked to her last at 2 PM and didn't suspect anything and claims that around 5 PM when he came home she was sitting in a chair with a needle in her arm and a suicide note. He claims that he does not have the suicide note any longer as the visualization developer took it from him. He claimed at that time that he would not be willing to sign a petition for his . Patient was seen after being admitted and transferred to the mental health unit this morning and appeared to be upset and frustrated with verse writer. She states that "you lied to me, I don't want to be here I want to go home". Patient had poor eye contact and was fairly argumentative with verse writer. She continues to minimize her suicide attempt and continues to state that "I don't know what happened". She claims that she has amnesia at times for certain events. She denied any stressors at home once again. She denies any depression or anxiety today. She claims that she did not sleep last night. At this time she denies any auditory visual hallucinations and denies any suicidal or homicidal ideations intent or plan. Patient claims that she uses marijuana at times and also smokes cigarettes. Denies any other recreational drug use." Hospital course: Upon admission to the unit patient was initially irritable and guarded/evasive. Patient was however directable and agreeable to commence treatment and signed out all voluntary form. Patient got along well with other patients on the unit and followed unit protocol. Patient was compliant with the medications and denied any side effects throughout hospital course. Patient was started on Lamictal and titrated up to a dose of 100 mg daily at bedtime for mood stabilization/depression, patient was also started on Prozac and titrated up to dose of 40 mg daily for mood/anxiety, trazodone increased to a dose of 100 mg daily at bedtime for insomnia/mood. Patient spoke of her stressors and engaged in therapy both group and individual. Patient was also seen by medical team for history and physical exam. Patient had a DATABASE ANALYST consult to evaluate patients swallowing and speech given her recent prolonged intubation while she was in the ICU and also to perform MOCA for apparent amnesia about the events leading up to hospitalization. Patient scored a 28 out of 30 on the MOCA completed on 02/09/2020. Throughout the course of the hospitalization patient gradually improved with regards to mood, anxiety, sleep and became future oriented with improvement in her insight and judgment. On the day of discharge patient denied any suicidal or homicidal ideations intent or plan denied any auditory or visual hallucinations. Patient endorsed wanting to live for her health and family. Patient did reflect back more on her stressors leading up to her suicide attempt mainly conflicts within her family which she was able to discuss over the phone with her and her son and also during group and individual therapy. The patient denied any access to guns or weapons and states that her has gotten rid of the guns in the house. Patient denied any paranoia and did not endorse any delusions. Patient does have a significant history of substance abuse and was counseled on abstaining from all substances including alcohol and marijuana. Patient claims that she wants to cut back on her marijuana use on her own. Patient was also counseled on the medications and need for regular compliance and was encouraged to follow-up with their outpatient appointment for mental health and also for primary care. Prior to discharge a family meeting will be arranged by social work therapist to answer any questions and ensure safety upon discharge. Mental status exam: General Appearance: Patient appears to be short in stature, stated age is alert, pleasant, and cooperative. Patient is in no acute distress and has improved hygiene and grooming Behavior: Patient is calmly seated without any agitated behavior. Speech: Patient's speech is fluent and nonpressured. Mood/Affect: Patient reports their mood is "good", affect is congruent and euthymic. Suicidality/Homicidality: Patient denies having any suicidal or homicidal ideation intent or plan. Perceptions: Patient denies any auditory or visual hallucinations. Though content/process: There is no evidence of any delusional thought content and thought process is linear and goal-directed. more future oriented Memory and concentration: AOX3, grossly intact for the purposes of this session. Can spell "WORLD" backwards correctly. Judgment and insight: improved with guarded prognosis Impression: Major depressive disorder Cannabis use disorder Nicotine dependence Plan: -Continue with discharge today as patient has improved and stabilized psychiatrically and is not currently an imminent threat to herself and/or others. Patient will remain at chronically elevated risk for harm to self and/or others due to her impulsivity and history of serious suicide attempt -Continue medications: Continue with Lamictal 100 mg daily at bedtime for stabilization/depression, Prozac 40 mg daily for mood/his ID, trazodone 100 mg daily at bedtime for insomnia/mood. -Patient was counseled on the need for medication compliance and appropriate follow-up at mental health and also primary care for medical issues. Patient verbalized understanding and agreed. -Social work to arrange for and conduct family meeting to ensure safety upon dis charge and answer any questions/concerns. Social work also to arrange for patients follow up appointments with Dr. Anderson for psychiatric care along with follow up with primary care provider. -Patient counseled on abstaining from recreational drugs and marijuana and alcohol. Was informed/educated on the adverse effects on their physical and mental health. Patient verbally agreed and understood. Patient wanted to cut back on her marijuana use on her own. -Patient was instructed to return to the hospital or seek immediate medical care if their psychiatric or medical symptoms do worsen or reoccur. Allergies Allergy/AdvReac Type Severity Reaction Status Date / Time HAY FEVER AdvReac Cough Uncoded 02/08/20 23:[address] Glu mg/dL 114 02/09/20 09:41 Hemoglobin A1c 5.6 % (4.0-6.0) 02/09/20 09:41 Triglycerides 225 mg/dL (<150) H 02/09/20 09:41 Cholesterol 320 mg/dL (<200) H 02/09/20 09:41 LDL Cholesterol, Calc 225 mg/dL (0-99) H 02/09/20 09:41 HDL Cholesterol 50 mg/dL (40-60) 02/09/20 09:41 TSH 2.330 mIU/L (0.465-4.680) 02/09/20 09:41 Vital Signs Temp 97.8 F 02/12/20 06:19 Pulse 75 02/12/20 06:19 Resp 17 02/12/20 06:19 BP 105/53 02/12/20 06:19 Pulse Ox 95 02/12/20 06:19 Patient Condition at Discharge: Stable Plan - Discharge Summary Discharge Rx Participant: No New Discharge Prescriptions: New traZODone HCL [Desyrel] 100 mg PO HS 30 Days tab levETIRAcetam [Keppra] 500 mg PO Q12HR tab lamoTRIgine [LaMICtal] 100 mg PO HS 30 Days tab FLUoxetine HCL [PROzac] 40 mg PO DAILY 30 Days cap Acetaminophen Tab [Tylenol] 650 mg PO Q4HR PRN tab PRN Reason: Pain/Discomfort Discontinued lamoTRIgine [LaMICtal] 150 mg PO DIRECTED Topiramate [Topamax] 100 mg PO HS FLUoxetine HCL [PROzac] 80 mg PO HS ALPRAZolam [Xanax] 0.5 mg PO BID PRN PRN Reason: Anxiety ALPRAZolam [ALPRAZolam XR] 1 mg PO QAM Dicyclomine HCl 10 mg PO BID PRN PRN Reason: Gi Upset Radha (Unknown Strength) 1 tab PO DAILY PRN PRN Reason: seasonal allergies Amoxicillin/Potassium Clav [Augmentin [id number] Tablet] 1 tab PO Q12HR 3 Days #6 tab levETIRAcetam [Keppra] 500 mg PO Q12HR #20 tab Discharge Medication List Acetaminophen Tab [Tylenol] 650 mg PO Q4HR PRN tab 02/12/20 [Rx] FLUoxetine HCL [PROzac] 40 mg PO DAILY 30 Days cap 02/12/20 [Rx] lamoTRIgine [LaMICtal] 100 mg PO HS 30 Days tab 02/12/20 [Rx] levETIRAcetam [Keppra] 500 mg PO Q12HR tab 02/12/20 [Rx] traZODone HCL [Desyrel] 100 mg PO HS 30 Days tab 02/12/20 [Rx] Follow up Appointment(s)/Referral(s): Dr Monica [Other] - 02/12/20 10:30 am Patient Instructions/Handouts: Depression (DC) Activity/Diet/Wound Care/Special Instructions: Activity and diet as tolerated. Avoid the use of street drugs and alcohol. Take all medications as prescribed. When you are in need of refills on your medications please contact your medical provider and/or outpatient psychiatrist to have this done. Please go to scheduled outpatient appointment for aftercare treatment. If symptoms return or become worse, call the crisis line at and/or go to the nearest emergency room for evaluation. Discharge Disposition: HOME SELF-CARE
== END 2020-02-12 09:52 | disposition home or self-care (01) | DRG 881 ==
LOC: EDSTATUS 18:43 → 3MHU 18:44
PROVIDERS: ADMIT Psychiatry & Neurology Psychiatry; ATTEND Psychiatry & Neurology Psychiatry
DX: F32.9 Major depressive disorder, single episode, unspecified (principal); F12.10 Cannabis abuse, uncomplicated; F17.200 Nicotine dependence, unspecified, uncomplicated; F43.10 Post-traumatic stress disorder, unspecified; G47.00 Insomnia, unspecified; M79.7 Fibromyalgia; Z86.74 Personal history of sudden cardiac arrest; Z90.710 Acquired absence of both cervix and uterus; Z88.8 Allergy status to other drugs, medicaments and biological substances
CPT/HCPCS: 80061; 83036; 84443